=== PATIENT | female | born 1955 | race Caucasian/White ===

== ENCOUNTER 2023-12-25 10:45 | Outpatient (RCR) | payer MEDICARE, SELFPAY | END 2023-12-25 23:59 | disposition home or self-care (01) | LOC: PURB 10:45 | PROVIDERS: ATTENDING PHYSICIAN Internal Medicine Critical Care Medicine; FAMILY PHYSICIAN Student in an Organized Health Care Education/Training Program | DX: J44.9 Chronic obstructive pulmonary disease, unspecified (principal) | CPT/HCPCS: 94625; G0237 ==

== ENCOUNTER 2024-01-14 12:04 | Emergency (ER) | payer MEDICARE, SELFPAY ==
[2024-01-14 12:17] VITALS: BP 124/90
[2024-01-14 12:29] VITALS: BP 104/78
[2024-01-14 13:00] VITALS: BP 107/64
[2024-01-14 13:19] VITALS: BMI 23.0
[2024-01-14] MEDS: DUONEB 6 ML INH (13:36)
[2024-01-14] MEDS: DELTASONE 60 MG PO (13:36)
[2024-01-14 14:00] VITALS: BP 93/78
[2024-01-14 14:02] LABS: COVID-19 Antigen Negative (Negative)
--- NOTE | 2024-01-14 14:40 | ED.GENMED ---
History of Present Illness
General
Chief Complaint: Breathing Problem
Time Seen by Provider: 01/14/24 12:44
Travel History
Have you had any contact with someone who has COVID-19?: No
Do you have any symptoms of coronavirus? Fever > 100 degrees, chills, cough, shortness of breath, sore throat, loss of taste or smell, muscle aches, or headache?: No
History of Present Illness
History of Present Illness:
68-year-old female with history of COPD presents to the emergency department for evaluation of increased shortness of breath for the past 3 to 4 days with low pulse ox at home. She does have oxygen concentrator at home, typically only wears this on
demand or at nighttime. Has had oxygen saturations in the low 80s at home. Denies any chest pain or fevers. No cough or purulent sputum. On my initial evaluation the patient informs me that she does not wish to be admitted, states 'I just want
prednisone and discharge'.
Past History
Past History
ED Past Medical History: COPD, Fibromyalgia and Other (Fibromyalgia, chronic neck and back pain, Osteoarthritis)
ED Past Surgical History:
Social History
Tobacco: Smoker
Alcohol: Occasional
Drug: None
Personal:
Living: with family
Family History
Family History: Other
Review of Systems
Review of Systems
Allergies reviewed?: Yes
All Other Systems: ROS reviewed and negative except as documented in HPI and ROS
Phy Exam
Physical Exam
Physical Exam:
GEN: Well appearing, NAD, WDWN
Eyes: PERRLA, EOMs intact, no scleral icterus
HENT: NCAT, oral mucosa moist, no JVD, no cervical adenopathy.
Lungs: Grossly diminished lung sounds, coarse wheezes heard in bases but overly diminished
Cardiac: RRR, no M/R/G, no peripheral edema. Radial pulses 2+ bilat
Neuro: AO x 3
MSK: No gross deformity or ecchymosis. No edema. No digital clubbing
Skin: No rashes, petechiae. Normal color, no pallor or jaundice.
Psych: Calm, cooperative, proper hygiene
Scores
Heart Failure Risk
Heart Failure Risk Score: Not Applicable
Course
Orders/Labs/Results
Orders:
Orders
01/14/24 12:48
Ipratropium/Albuterol Sulfate [Duoneb] 6 ml INH R NOW STA
Prednisone [Deltasone] 60 mg PO NOW STA
01/14/24 12:49
CR Chest - 2 Views Urgent
Comment:
Reason For Exam: SOB
01/14/24 13:35
COVID-19 Antigen Urgent
Source: Nasal Swab
Influenza A+B Rapid Molecular Urgent
SHENG Source: Nasal Swab
Specimen Description:
Vital Signs
Initial and Last Documented VS:
Initial Vital Signs
Temp Pulse Resp BP Pulse Ox
98.2 F 106 18 124/90 84
01/14/24 12:17 01/14/24 12:17 01/14/24 12:17 01/14/24 12:17 01/14/24 12:17
Last Documented Vital Signs
Temp Pulse Resp BP Pulse Ox
98.2 F 85 21 93/78 97
01/14/24 12:17 01/14/24 14:00 01/14/24 14:00 01/14/24 14:00 01/14/24 14:00
MDM/Problems Addressed
MDM/Problems Addressed:
Patient symptomatically improved with DuoNeb in the emergency department. Chest x-ray is negative for acute abnormalities. Patient be discharged on a prednisone pulse dosing, encouraged ED return if any worsening due to her brittle underlying COPD
*Critical Care Note
Total Time (30-74mins, 75-104mins- exclusive of procedures): Not Applicable
ED Attending Note
-
Portions of this chart may have been created with voice recognition software.� Occasional wrong word or��sound alike� substitutions may have occurred due to the inherent limitations of voice recognition software.
Discharge Plan
Departure
Patient Disposition: Home (Routine Discharge)
Date of Disposition: 01/14/24
Time of Disposition: 14:40
Patient with high blood pressure during this ER visit?: No
Discharge Problem:
Acute exacerbation of chronic obstructive pulmonary disease
Instructions: Exacerbation of COPD (DC)
Prescriptions:
New
prednisone 20 mg tablet
40 mg PO DAILY 6 Days Qty: 12 0RF
No Action
atorvastatin 10 mg Tablet
10 mg PO DAILY
zolpidem 10 mg Tablet
10 mg PO HSPRN PRN (Reason: sleep)
Rx Instructions:
08/20/2023, patient filled this medication on 08/09/2023 for 30 tablets according to PDMP.
therapeutic multivitamin Tablet
1 tab PO DAILY
albuterol sulfate 90 mcg/actuation Hfa Aerosol Inhaler
1 puff INHALATION R Q4HPRN PRN (Reason: sob)
bupropion HCl 150 mg Tablet Extended Release 24 Hr
150 mg PO DAILY
Anoro Ellipta 62.5-25 mcg/actuation Blister With Device
1 inh INHALATION R DAILY
oxycodone-acetaminophen 5 MG/325 MG tablet
1 tab PO Q8HPRN PRN (Reason: mild pain)
Rx Instructions:
08/20/2023, patient filled this medication on 06/19/2023 for 90 tablets according to PDMP.
nicotine 14 mg/24 hr Patch 24 Hour
14 mg transdermal DAILY Qty: 14 0RF
prednisone 10 mg Tablet
See Rx Instructions .ROUTE .COMPLEX Qty: 30 0RF
Rx Instructions:
Take By Mouth:
40 mg daily x3 days, 30 mg daily x3 days,
20 mg daily x3 days, 10 mg daily x3 days.
azithromycin 250 mg tablet
250 mg PO DAILY 4 Days Qty: 4 0RF
prednisone 10 mg tablet
10 mg PO DIRECTED Qty: 16 0RF
Rx Instructions:
4 tablets for day 1
3 tablets for day 2 and day 3
2 tablets for day 4 and day 5
1 tablet for day 6 and day 7
Referrals:
Emilia Alcala MD [Family Provider] -
Interventions
Interventions:
*Risk Screen - Suicide Last Done: 01/14/24 12:17
*General Assessment Last Done: 01/14/24 12:17
*Neglect/Abuse Screening Last Done: 01/14/24 12:17
ED- Fall Risk Assessment Last Done: 01/14/24 13:19
*ED COVID-19 Vaccine History Last Done: 01/14/24 13:19
*Nursing Disposition Last Done: 01/14/24 15:05
ED- Cardiac Assessment Last Done: 01/14/24 13:19
ED- Pulmonary Assessment Last Done: 01/14/24 13:19
Discharge Date and Time
Discharge Date/Time: 01/14/24 15:05
--- NOTE | 2024-01-14 15:01 | EDRN ---
Reviewed discharge with patient. Verbalized understanding. Refused wheelchair when offered.
== END 2024-01-14 15:05 | disposition home or self-care (01) ==
LOC: EMR 12:04
PROVIDERS: Physician Assistant; EMERGENCY PHYSICIAN Emergency Medicine; FAMILY PHYSICIAN Student in an Organized Health Care Education/Training Program
DX: J44.1 Chronic obstructive pulmonary disease with (acute) exacerbation (principal); F17.200 Nicotine dependence, unspecified, uncomplicated; Z11.52 Encounter for screening for COVID-19
CPT/HCPCS: 99284; 94640; 71046; 87502; 87811

== ENCOUNTER 2024-01-22 10:45 | Outpatient (RCR) | payer MEDICARE, SELFPAY | END 2024-01-22 23:59 | disposition home or self-care (01) | LOC: PURB 10:45 | PROVIDERS: ATTENDING PHYSICIAN Internal Medicine Critical Care Medicine; FAMILY PHYSICIAN Student in an Organized Health Care Education/Training Program | DX: J44.9 Chronic obstructive pulmonary disease, unspecified (principal) | CPT/HCPCS: 94625 ==

== ENCOUNTER → 2024-02-01 15:18 | Outpatient (REF) | payer MEDICARE, SELFPAY | LOC: HWRAD 15:18 | PROVIDERS: ATTENDING PHYSICIAN Otolaryngology; FAMILY PHYSICIAN Student in an Organized Health Care Education/Training Program | DX: J32.0 Chronic maxillary sinusitis (principal) | CPT/HCPCS: 70486 ==

== ENCOUNTER 2024-02-05 10:45 | Outpatient (RCR) | payer MEDICARE, SELFPAY | END 2024-02-13 09:09 | disposition home or self-care (01) | LOC: PURB 10:45 | PROVIDERS: ATTENDING PHYSICIAN Internal Medicine Critical Care Medicine; FAMILY PHYSICIAN Student in an Organized Health Care Education/Training Program | DX: J44.9 Chronic obstructive pulmonary disease, unspecified (principal) | CPT/HCPCS: 94625 ==

== ENCOUNTER 2024-04-24 09:24 | Emergency (ER) | payer MEDICARE, SELFPAY ==
[2024-04-24 09:25] VITALS: BP 112/73
--- NOTE | 2024-04-24 10:14 | ED.GENMED ---
History of Present Illness
General
Chief Complaint: Back Pain
Source: patient
Exam Limitations: none
Time Seen by Provider: 04/24/24 09:35
Nursing documentation reviewed up to this point in time: agreed with
History of Present Illness
History of Present Illness:
Patient is a 68-year-old female with past medical history of cervical stenosis COPD presents to the ER for evaluation. Patient has had low back pain and she feels bilateral sciatica. She reports back pain is more of a newer pain for her she
typically gets neck pain. She is a chronic pain patient and is on chronic narcotics. Today she denies any recent injury . Denies any recent fever or chills. Denies any back procedures recently. She denies any loss of bowel or bladder. She
denies any numbness tingling weakness in extremities. Patient is coming in today to get an MRI.
Past History
Past History
ED Past Medical History: COPD, Fibromyalgia and Other (Fibromyalgia, chronic neck and back pain, Osteoarthritis)
ED Past Surgical History:
Social History
Tobacco: Smoker
Alcohol: Occasional
Drug: None
Personal:
Living: with family
Family History
Family History: Other
Review of Systems
Review of Systems
Allergies reviewed?: Yes
All Other Systems: ROS reviewed and negative except as documented in HPI and ROS
Constitutional: Reports no symptoms; Denies fever, fatigue or chills
Musculoskeletal: Reports back pain
Skin: Reports no symptoms
Neurological: Reports no symptoms
Psychiatric: Reports no symptoms
Phy Exam
General Physical Exam
General Presentation: no apparent distress
General age: appears stated age
General Skin: warm and dry
General Habitus: normal
General Mental: alert
General Hydration: appears well hydrated
Neurological Exam
Neurological Exam: alert, oriented x3 and other (Normal strength bilateral lower extremities normal dorsiflexion plantarflexion)
Musculoskeletal Exam
Musculoskeletal Exam: full ROM and other (Normal inspection to back, full range of motion to bilateral lower extremities)
Skin Exam
Skin Exam: normal color and warm/dry
Psychiatric Exam
Psychiatric Exam: normal mood/affect
Course
Vital Signs
Initial and Last Documented VS:
Initial Vital Signs
Temp Pulse Resp BP Pulse Ox
98.5 F 108 16 112/73 93
04/24/24 09:25 04/24/24 09:25 04/24/24 09:25 04/24/24 09:25 04/24/24 09:25
Last Documented Vital Signs
Temp Pulse Resp BP Pulse Ox
98.5 F 108 16 112/73 93
04/24/24 09:25 04/24/24 09:25 04/24/24 09:25 04/24/24 09:25 04/24/24 09:25
MDM/Problems Addressed
Differential Diagnosis Includes:
not limited to: Lumbar sprain strain, sciatica
MDM/Problems Addressed:
Patient is a 68-year-old female with chronic neck pain followed by pain management presents to the ER with back pain that radiates to both legs. She denies any recent injury. She denies any fever chills or recent back procedures. She presents
awake alert no acute distress normal strength neurologic deficits negative straight leg raise normal dorsiflexion plantar flexion, reflexes.
Will DC home with Medrol Dosepak. Patient follow-up with a family doctor pain management.
She has no neurological deficits no indication for MRI at this time discussed with patient that she may need this as an outpatient
Chronic conditions affecting care:
Chronic pain is a pt of pain management
*Critical Care Note
Total Time (30-74mins, 75-104mins- exclusive of procedures): Not Applicable
ED Attending Note
-
Portions of this chart may have been created with voice recognition software.� Occasional wrong word or��sound alike� substitutions may have occurred due to the inherent limitations of voice recognition software.
Discharge Plan
Departure
Patient Disposition: Home (Routine Discharge)
Date of Disposition: 04/24/24
Time of Disposition: 10:37
Patient with high blood pressure during this ER visit?: No
Condition: Fair
Covid-19: Not Applicable
Discharge Problem:
Sciatica, Low back pain
Instructions: Low Back Pain (DC), Sciatica (DC)
Prescriptions:
New
methylprednisolone [Medrol (Clint)] 4 mg tablets,dose pack
4 mg PO ONCE Qty: 21 0RF
Rx Instructions:
take as directed
No Action
atorvastatin 10 mg Tablet
10 mg PO DAILY
zolpidem 10 mg Tablet
10 mg PO HSPRN PRN (Reason: sleep)
Rx Instructions:
08/20/2023, patient filled this medication on 08/09/2023 for 30 tablets according to PDMP.
therapeutic multivitamin Tablet
1 tab PO DAILY
albuterol sulfate 90 mcg/actuation Hfa Aerosol Inhaler
1 puff INHALATION R Q4HPRN PRN (Reason: sob)
bupropion HCl 150 mg Tablet Extended Release 24 Hr
150 mg PO DAILY
Anoro Ellipta 62.5-25 mcg/actuation Blister With Device
1 inh INHALATION R DAILY
oxycodone-acetaminophen 5 MG/325 MG tablet
1 tab PO Q8HPRN PRN (Reason: mild pain)
Rx Instructions:
08/20/2023, patient filled this medication on 06/19/2023 for 90 tablets according to PDMP.
nicotine 14 mg/24 hr Patch 24 Hour
14 mg transdermal DAILY Qty: 14 0RF
prednisone 10 mg Tablet
See Rx Instructions .ROUTE .COMPLEX Qty: 30 0RF
Rx Instructions:
Take By Mouth:
40 mg daily x3 days, 30 mg daily x3 days,
20 mg daily x3 days, 10 mg daily x3 days.
azithromycin 250 mg tablet
250 mg PO DAILY 4 Days Qty: 4 0RF
prednisone 10 mg tablet
10 mg PO DIRECTED Qty: 16 0RF
Rx Instructions:
4 tablets for day 1
3 tablets for day 2 and day 3
2 tablets for day 4 and day 5
1 tablet for day 6 and day 7
prednisone 20 mg tablet
40 mg PO DAILY 6 Days Qty: 12 0RF
Referrals:
Emilia Alcala MD [Family Provider] -
Activity Restrictions/Additional Instructions:
As discussed a prescription for Medrol Dosepak(low-dose steroid pack) was sent to your pharmacy to take as directed. Symptoms are consistent with sciatica, pinched nerve. Follow-up with design painter or your family doctor for further
evaluation. It is possible you may need an MRI or physical therapy. Return if any worsening of symptoms including loss of bowel or bladder worsening pain numbness tingling weakness lower extremities.
Interventions
Interventions:
*Risk Screen - Suicide Last Done: 04/24/24 09:25
*General Assessment Last Done: 04/24/24 09:25
*Neglect/Abuse Screening Last Done: 04/24/24 09:25
*ED COVID-19 Vaccine History Last Done: 04/24/24 09:25
Discharge Date and Time
Print Language: CROATIAN
[2024-04-24 11:36] VITALS: BP 111/62
== END 2024-04-24 11:47 | disposition home or self-care (01) ==
LOC: EMR 09:24
PROVIDERS: EMERGENCY PHYSICIAN Emergency Medicine; FAMILY PHYSICIAN Student in an Organized Health Care Education/Training Program; REFERRING PHYSICIAN Physical Medicine & Rehabilitation
DX: M54.40 Lumbago with sciatica, unspecified side (principal); J44.9 Chronic obstructive pulmonary disease, unspecified; M79.7 Fibromyalgia; G89.29 Other chronic pain; M19.90 Unspecified osteoarthritis, unspecified site; F17.200 Nicotine dependence, unspecified, uncomplicated; Z79.891 Long term (current) use of opiate analgesic; Z79.899 Other long term (current) drug therapy
CPT/HCPCS: 99282

== ENCOUNTER → 2024-06-11 16:02 | Outpatient (REF) | payer MEDICARE, SELFPAY ==
[2024-06-11 16:54] LABS: % Basophils 0.8 % (0-2); % Eosinophils 0.8 % (0-6); % Immature Granulocytes 0.3 % (0-0.5); % Lymphocytes 19.6 % (20.5-51.1); % Monocytes 7.8 % (1.7-9.3); % Neutrophils 70.7 % (42.2-75.2); Absolute Basophils 0.1 10^3/uL (0-0.2); Absolute Eosinophils 0.1 10^3/uL (0-0.7); Absolute Lymphocytes 1.8 10^3/uL (1.2-3.4); Absolute Monocytes 0.7 10^3/uL (0.1-0.6); Absolute Neutrophils 6.6 10^3/uL (1.4-6.5); Hematocrit 43.4 % (37.0-47.0); Hemoglobin 14.7 g/dL (12.0-16.0); Mean Corp Hgb Conc. 33.9 g/dL (33.0-37.0); Mean Corpuscular Hgb 31.2 pg (27.0-31.0); Mean Corpuscular Volume 92.1 fL (81.0-99.0); Mean Platelet Volume 9.7 fL (7.4-10.4); Nucleated Red Blood Cells % 0 %; Platelet Count 265 10^3/uL (130-400); Red Blood Cell Count 4.71 10^6/uL (4.20-5.40); Red Cell Dist. Width 11.9 % (11.5-14.5); White Blood Cell Count 9.3 10^3/uL (4.8-10.8)
[2024-06-11 17:21] LABS: ALT (SGPT) 16 U/L (0-35); AST (SGOT) 24 U/L (14-36); Albumin 4.1 g/dl (3.5-5.0); Alkaline Phosphatase 53 U/L (38-126); Blood Urea Nitrogen 16 mg/dl (7-17); Calcium 9.7 mg/dl (8.4-10.2); Carbon Dioxide 35 mmol/L (22-30); Chloride 96 mmol/L (98-107); Glucose 106 mg/dl (70-99); HDL Cholesterol 67 mg/dl; LDL Cholesterol, Calculated 95 mg/dl; Magnesium 2.1 mg/dl (1.6-2.3); Potassium 4.5 mmol/L (3.5-5.1); Sodium 136 mmol/L (135-145); Total Bilirubin 0.4 mg/dl (0.2-1.3); Total Cholesterol 178 mg/dl (50-199); Total Protein 6.3 g/dl (6.3-8.2); Triglyceride 83 mg/dl (10-149); Very Low Density Lipoprotein 16 mg/dl (0-30); eGFR > 60.00
[2024-06-11 17:51] LABS: TSH Reflex To Free T4 0.31 uIU/ml (0.47-4.68)
[2024-06-11 18:20] LABS: Free T4 1.26 ng/dl (0.78-2.19)
== END ==
LOC: REG 16:02
PROVIDERS: ATTENDING PHYSICIAN Student in an Organized Health Care Education/Training Program
DX: R63.4 Abnormal weight loss (principal); R19.7 Diarrhea, unspecified; R25.2 Cramp and spasm; Z00.00 Encounter for general adult medical examination without abnormal findings; E78.5 Hyperlipidemia, unspecified
CPT/HCPCS: 36415; 80053; 80061; 83735; 84439; 84443; 85025

== ENCOUNTER → 2024-07-22 14:26 | Outpatient (REF) | payer MEDICARE, SELFPAY ==
[2024-07-22 14:53] LABS: B.E. 6.2 mmol/L; HCO3 32.7 mmol/L (21-28); O2 Saturation % 89.9 % (94-98); PCO2 54 mmHg (32-35); PO2 54 mmHg (83-108); pH 7.39 (7.35-7.45)
[2024-07-22 14:55] LABS: O2 Therapy ROOM AIR
== END ==
LOC: RSP 14:26
PROVIDERS: ATTENDING PHYSICIAN Nurse Practitioner Family; FAMILY PHYSICIAN Student in an Organized Health Care Education/Training Program
DX: R09.02 Hypoxemia (principal); J44.9 Chronic obstructive pulmonary disease, unspecified
CPT/HCPCS: 36600; 82805

== ENCOUNTER → 2024-08-15 15:32 | Outpatient (REF) | payer MEDICARE, SELFPAY ==
[2024-08-15 17:50] LABS: Free T4 1.06 ng/dl (0.78-2.19)
[2024-08-16 09:05] LABS: Glycohemoglobin (HgbA1c) 5.8 % (4.0-5.6)
[2024-08-18 00:10] LABS: Thyroglobulin Antibodies <0.9 IU/mL (0.0-4.0); Thyroid Peroxidase Ab (TPO) <0.3 IU/mL (0.0-9.0)
== END ==
LOC: REG 15:32
PROVIDERS: ATTENDING PHYSICIAN Student in an Organized Health Care Education/Training Program
DX: R94.6 Abnormal results of thyroid function studies (principal); R73.01 Impaired fasting glucose
CPT/HCPCS: 36415; 83036; 84439; 84443; 86376; 86800

== ENCOUNTER 2024-09-01 04:33 | Inpatient (IN) | payer MEDICARE, SELFPAY ==
[2024-09-01] VITALS (15 sets, daily range): BP systolic 89–159; BP diastolic 50–85; PULSE 94–107; BMI 20.9
[2024-09-01] MEDS: DECADRON 10 MG IV (00:45)
[2024-09-01] MEDS: DUONEB 3 ML INH ×4 (00:45→15:20)
--- NOTE | 2024-09-01 00:57 | ED.GENMED ---
History of Present Illness
General
Chief Complaint: Breathing Problem
Source: patient and ambulance crew
Exam Limitations: none
Time Seen by Provider: 09/01/24 00:39
Nursing documentation reviewed up to this point in time: agreed with
History of Present Illness
History of Present Illness:
68-year-old female presents emergency department due to shortness of breath for the past 2 days. Upon EMS arrival oxygen saturation 50% on room air. She received 1 DuoNeb. She has a history of COPD.
Past History
Past History
ED Past Medical History: COPD, Fibromyalgia and Other (Fibromyalgia, chronic neck and back pain, Osteoarthritis)
ED Past Surgical History:
Social History
Tobacco: Smoker
Alcohol: Occasional
Drug: None
Personal:
Living: with family
Family History
Family History: Other
Review of Systems
Review of Systems
Allergies reviewed?: Yes
All Other Systems: Not applicable
Constitutional: Reports no symptoms; Denies fever
EENT: Reports no symptoms
Respiratory: Reports cough and trouble breathing
Cardiac: Reports no symptoms
ABD/GI: Reports no symptoms
: Reports no symptoms
Musculoskeletal: Reports no symptoms
Skin: Reports no symptoms
Neurological: Reports no symptoms
Endocrine: Reports no symptoms
Hematologic/Lymphatic: Reports no symptoms
Psychiatric: Reports no symptoms
Phy Exam
Physical Exam
Physical Exam:
Physical Exam
General: Moderate respiratory distress
Neck: supple. no meningeal signs. normal posterior pharynx
Heart: s1/s2 regular rate and rhythm, no murmur. equal radial
pulses.
HEENT: Pupils equal round reactive to light, EOMI
Lungs: Moderate respiratory distress. Wheezing bilaterally
Abdomen: normal bowel sounds. not tender. no CVAT
Neuro: alert and oriented. no focal neurological deficits cranial nerves II through XII intact
Skin: no rash
Psychiatric: well kept. interactive and cooperative
Extremities: no edema. no calf tenderness. negative homans. good distal pulses
Scores
Heart Failure Risk
Heart Failure Risk Score: Not Applicable
Course
Orders/Labs/Results
Orders:
Orders
09/01/24 00:39
Cardiac Monitoring- Treatment ONCE
IV Insert/Care/Rem.- Treatment PRN
Dexamethasone Sod Phosphate [Decadron] 10 mg IV NOW STA
Ipratropium/Albuterol Sulfate [Duoneb] 3 ml INH R NOW STA
O2 Therapy [RESP] Stat
Nasal Cannula Liter Flow: 6 LPM
Titrate/Wean O2 to maintain O2 sat greater than (%): 92
Pulse Ox/cont/shift [RESP] Stat
Quantity: 1
09/01/24 00:41
CR Chest Portable - 1 View Urgent
Comment:
Reason For Exam: short of breath
Reason Study Needs to be Portable: Patient Unstable
09/01/24 00:42
Electrocardiogram (*1) Urgent
Reason for Study: Shortness of Breath
EKG- Treatment ONCE
Ipratropium/Albuterol Sulfate [Duoneb] 3 ml .ROUTE .STK-MED ONE
09/01/24 00:46
Complete Blood Count/With Diff Urgent
Comprehensive Metabolic Panel Urgent
09/01/24 01:18
Ondansetron Injectable [Zofran] 4 mg IV NOW STA
Abnormal Lab Results
09/01/24
00:46
WBC 15.7 H 10^3/uL
(4.8-10.8)
MCH 31.2 H pg
(27.0-31.0)
Abs Immat Gran (auto) 0.1 H 10^3/uL
(0-0.05)
Absolute Neuts (auto) 12.5 H 10^3/uL
(1.4-6.5)
Absolute Monos (auto) 1.4 H 10^3/uL
(0.1-0.6)
Neutrophils % 79.7 H %
(42.2-75.2)
Lymphocytes % 10.7 L %
(20.5-51.1)
Chloride 97 L mmol/L
(98-107)
Carbon Dioxide 35 H mmol/L
(22-30)
Creatinine 0.5 L mg/dL
(0.6-1.0)
Glucose 185 H mg/dl
(70-99)
AST 47 H U/L
(14-36)
09/01/24 00:46
09/01/24 00:46
Vital Signs
Initial and Last Documented VS:
Initial Vital Signs
Pulse Ox
94
09/01/24 00:36
Last Documented Vital Signs
Pulse Resp BP Pulse Ox
107 20 143/67 93
09/01/24 01:00 09/01/24 01:00 09/01/24 01:00 09/01/24 01:00
MDM/Problems Addressed
Differential Diagnosis Includes:
Pneumonia, COPD, CHF
MDM/Problems Addressed:
68-year-old female with COPD exacerbation, hypoxia. No pneumonia seen. Do not suspect CHF. Admit to hospitalist.
Chronic conditions affecting care: COPD
Acute Exacerbation and/or Progression of Chronic Illness: COPD
*Radiology
Radiology exam reviewed: preliminary read by ED provider (Chest x-ray no acute findings)
*Pulse Oximetry
Patient hypoxic: yes
*EKG
Interpreted by ED Provider?: Yes
EKG Intrepretation Date: 09/01/24
EKG Intrepretation Time: 00:53
Interpretation: abnormal
Comparison EKG: no comparison EKG present
Heart Rate: 103
Rate: tachycardiac
Rhythm: sinus tachycardia
[place]: normal axis
Interval: normal interval
QRS Pattern: normal QRS
Ischemia: no ischemia
*Photoengraving Apprentice Interpretation
Rate: normal
Interpretation: normal
Heart Rate: 95
Rhythm: sinus
*Critical Care Note
Total Time (30-74mins, 75-104mins- exclusive of procedures): 30
comment:
Critical care statement: A total of 30 minutes of critical care time was provided for this patient. This includes management of unstable vital signs, evaluation of the patient at bedside, reviewing the patient's pertinent medical records, discussion
with consultants, review of old EKGs and review of pertinent medical records. This time with separate from time utilized to perform the aforementioned documented procedures
Data Reviewed
Review of Other/Old Records Reveals: Discharge Summary (Patient discharged on 08/22/2023 after COPD exacerbation)
Source: records
Prescriptions/Medications Considered But Not Given:
Antibiotics not indicated
Further Testing Considered But Not Given:
CT chest not indicated
Patient Management
Discussion with other providers: Hospitalist
Escalation/DeEscalation of care consider admission/obs:
Admit indicated
ED Attending Note
-
Portions of this chart may have been created with voice recognition software.� Occasional wrong word or��sound alike� substitutions may have occurred due to the inherent limitations of voice recognition software.
Discharge Plan
Departure
Patient Disposition: Admit
Date of Disposition: 09/01/24
Time of Disposition: 02:11
Admit to: Telemetry
Presentation/result/management discussed w/ accepting MD/DO: Hospitalist
Patient with high blood pressure during this ER visit?: Yes
Condition: Fair
Discharge Problem:
Acute exacerbation of chronic obstructive pulmonary disease (COPD), Hypoxia
Prescriptions:
No Action
atorvastatin 10 mg Tablet
10 mg PO DAILY
zolpidem 10 mg Tablet
10 mg PO HSPRN PRN (Reason: sleep)
Rx Instructions:
08/20/2023, patient filled this medication on 08/09/2023 for 30 tablets according to PDMP.
therapeutic multivitamin Tablet
1 tab PO DAILY
albuterol sulfate 90 mcg/actuation Hfa Aerosol Inhaler
1 puff INHALATION R Q4HPRN PRN (Reason: sob)
bupropion HCl 150 mg Tablet Extended Release 24 Hr
150 mg PO DAILY
Anoro Ellipta 62.5-25 mcg/actuation Blister With Device
1 inh INHALATION R DAILY
oxycodone-acetaminophen 5 MG/325 MG tablet
1 tab PO Q8HPRN PRN (Reason: mild pain)
Rx Instructions:
08/20/2023, patient filled this medication on 06/19/2023 for 90 tablets according to PDMP.
nicotine 14 mg/24 hr Patch 24 Hour
14 mg transdermal DAILY Qty: 14 0RF
prednisone 10 mg Tablet
See Rx Instructions .ROUTE .COMPLEX Qty: 30 0RF
Rx Instructions:
Take By Mouth:
40 mg daily x3 days, 30 mg daily x3 days,
20 mg daily x3 days, 10 mg daily x3 days.
azithromycin 250 mg tablet
250 mg PO DAILY 4 Days Qty: 4 0RF
prednisone 10 mg tablet
10 mg PO DIRECTED Qty: 16 0RF
Rx Instructions:
4 tablets for day 1
3 tablets for day 2 and day 3
2 tablets for day 4 and day 5
1 tablet for day 6 and day 7
prednisone 20 mg tablet
40 mg PO DAILY 6 Days Qty: 12 0RF
methylprednisolone [Medrol (Clint)] 4 mg tablets,dose pack
4 mg PO ONCE Qty: 21 0RF
Rx Instructions:
take as directed
Referrals:
Emilia Alcala MD [Family Provider] -
Interventions
Interventions:
*Risk Screen - Suicide Last Done: 09/01/24 00:59
*General Assessment Last Done: 09/01/24 00:40
*Neglect/Abuse Screening Last Done: 09/01/24 00:59
*ED COVID-19 Vaccine History Last Done: 09/01/24 00:59
ED- Cardiac Assessment Last Done: 09/01/24 00:40
ED- Pulmonary Assessment Last Done: 09/01/24 00:40
Discharge Date and Time
Print Language: COMORAN
[2024-09-01 01:16] LABS: ALT (SGPT) 34 U/L (0-35); AST (SGOT) 47 U/L (14-36); Albumin 4.4 g/dl (3.5-5.0); Alkaline Phosphatase 59 U/L (38-126); Blood Urea Nitrogen 13 mg/dl (7-17); Calcium 9.6 mg/dl (8.4-10.2); Carbon Dioxide 35 mmol/L (22-30); Chloride 97 mmol/L (98-107); Estimated Creatinine Clearance 76 ml/min; Glucose 185 mg/dl (70-99); Potassium 4.4 mmol/L (3.5-5.1); Sodium 142 mmol/L (135-145); Total Bilirubin 0.4 mg/dl (0.2-1.3); Total Protein 6.7 g/dl (6.3-8.2); eGFR > 60.00
[2024-09-01] MEDS: ZOFRAN 4 MG IV (01:21)
[2024-09-01 01:34] LABS: % Basophils 0.4 % (0-2); % Eosinophils 0.2 % (0-6); % Immature Granulocytes 0.3 % (0-0.5); % Lymphocytes 10.7 % (20.5-51.1); % Monocytes 8.7 % (1.7-9.3); % Neutrophils 79.7 % (42.2-75.2); Absolute Basophils 0.1 10^3/uL (0-0.2); Absolute Immature Granulocytes 0.1 10^3/uL (0-0.05); Absolute Lymphocytes 1.7 10^3/uL (1.2-3.4); Absolute Monocytes 1.4 10^3/uL (0.1-0.6); Absolute Neutrophils 12.5 10^3/uL (1.4-6.5); Hemoglobin 15.1 g/dL (12.0-16.0); Mean Corp Hgb Conc. 33.6 g/dL (33.0-37.0); Mean Corpuscular Hgb 31.2 pg (27.0-31.0); Mean Platelet Volume 9.2 fL (7.4-10.4); Nucleated Red Blood Cells % 0 %; Platelet Count 302 10^3/uL (130-400); Red Blood Cell Count 4.84 10^6/uL (4.20-5.40); Red Cell Dist. Width 11.7 % (11.5-14.5); White Blood Cell Count 15.7 10^3/uL (4.8-10.8)
--- NOTE | 2024-09-01 04:19 | HPS.HSE ---
Family Physician
-
Family Physician: Emilia Alcala MD
Chief Complaint
-
SOB
History of Present Illness
Patient is a 68y F with PMH significant for COPD and fibromyalgia who presents to ED complaining of SOB. Patient states that she has had runny nose and mild cold symptoms for the past few days. Yesterday she started to feel SOB and this has
persisted over the past 24 hours plus despite home nebulizers and usual medications. With increased SOB this evening, patient presented to the ED for further evaluation.
SpO2 was recorded as very low by EMS (likely in error). SpO2 here on oxygen was 84% and is currently 98% on 6 lpm of O2.
Patient currently feels improved in regards to her SOB and complains only of headache.
Medical History
Past Medical History
Past Medical History: Reports Other
Additional Past Medical History:
COPD
Fibromyalgia
PMR
Migraine Headaches
Anxiety / Depression
Past Surgical History: Reports Other
Additional Past Surgical History:
Nose Surgery
Breast Biopsy (benign)
D&C
Cataracts
Zencker's Diverticulectomy
Social History
Tobacco: Smoker (Current every day smoker. > 50 pack years total use.)
Alcohol: Occasional
Drug: None
Family History
Family History: Not pertinent
Allergies / Home Medications
Allergies reflects when Allergies were last updated in [employer].
Home Medications with original date entered in [employer]
Allergy/Medication List:
Allergies
Allergy/AdvReac Type Severity Reaction Status Date / Time
amoxicillin Allergy Anaphylaxis Verified 04/24/24 09:27
Home Medications
atorvastatin 10 mg tablet 10 mg PO DAILY High Cholesterol 05/04/23
zolpidem 10 mg tablet 10 mg PO HSPRN PRN sleep 05/04/23
albuterol sulfate 90 mcg/actuation aerosol inhaler 1 puff inhalation R Q4HPRN PRN sob 08/20/23
bupropion HCl 150 mg 24 hr tablet, extended release 150 mg PO DAILY Depression 08/20/23
therapeutic multivitamin 1 tab PO DAILY Supplement 08/20/23
umeclidinium 62.5 mcg-vilanterol 25 mcg/actuation powdr for inhalation (Anoro Ellipta) 1 inh inhalation R DAILY Lung/Breathing Issues 08/20/23
azithromycin 250 mg tablet 250 mg PO DAILY 4 days #4 tabs 08/22/23
prednisone 20 mg tablet 40 mg (2 x 20 mg) PO DAILY 6 days #12 tabs 01/14/24
Review of Systems
-
History Source: Patient
A 12 point ROS was completed and negative except as noted: Yes
Constitutional: Reports Fatigue; Denies Fever or Chills
EENT: Reports Runny Nose; Denies Sore Throat
Respiratory: Reports Cough and Trouble Breathing
Cardiac: Reports Palpitations; Denies Chest Pain
Abdomen/GI: Denies Abdominal Pain, Nausea, Vomiting or Diarrhea
: Denies Dysuria, Frequency or Flank Pain
Neurological: Reports Headache; Denies Dizzy
Psych: Denies Depression or Anxiety
Physical Exam
Vital Signs
Vital Signs
Temp Pulse Resp BP Pulse Ox
98.7 F 87 15 105/63 99
09/01/24 01:00 09/01/24 04:00 09/01/24 04:00 09/01/24 04:00 09/01/24 04:00
Physical Exam
General: Other (68y F in mild distress due to headache.)
HEENT: Moist mucous membranes and PERRLA
Respiratory: Other (Decreased breath sounds throughout. Few scattered coarse breath sounds/ rhonchi. No active wheezing.)
Cardiac: S1/S2 and Regular Rhythm; No Murmur
GI: Soft, Non Tender, Non Distended and Normal Bowel Sounds
Musculoskeletal: No Clubbing, No Cyanosis and No Edema
Neuro: AO x 3
Laboratory Results
-
09/01/24 00:46
09/01/24 00:46
Laboratory Results
Total Bilirubin 0.4 mg/dl (0.2-1.3) 09/01/24 00:46
AST 47 U/L (14-36) H 09/01/24 00:46
ALT 34 U/L (0-35) 09/01/24 00:46
Alkaline Phosphatase 59 U/L (38-126) 09/01/24 00:46
Impression/Plan
-
A/P: Patient is a 68y F with PMH significant for COPD and anxiety / depression who presents to ED complaining of worsening SOB and cold symptoms over the past 2 days.
AE-COPD
Acute Hypoxemic Respiratory Insufficiency secondary to the above
- Admit for further evaluation and treatment.
- SpO2 in the 80s on supplemental oxygen.
- Patient has home O2 that she uses 'as needed' and BiPAP that she wears at night - she does not know the settings.
- IV steroids and taper as able / transition to PO prednisone (which patient takes 40mg / day at baseline).
- Nebs ATC and PRN.
- Mucolytics.
- PO doxycycline given coarse breath sounds / cough. Hold usual azithromycin for now - resume on discharge.
- Consider Pulmonary evaluation if symptoms worsen or persist.
Fibromyalgia
PMR
- Stable. No complaints of pain at present - other than headache.
- Continue current med regimen.
- Resume usual steroid dose at discharge as noted above.
Anxiety / Depression
- Stable. Continue usual outpatient medications.
DVT Prophylaxis: Lovenox
Code Status: Full
[2024-09-01 05:06] LABS: COVID-19 Antigen Negative (Negative)
--- NOTE | 2024-09-01 07:05 | PTCARENOTE ---
pt admitted from ED, AAOx3. Pt 96% on 6L O2. + headache. Call white within reach and bed in lowest position. Awaiting further plan.
[2024-09-01] MEDS: MUCINEX 600 MG PO ×2 (07:40→20:09)
[2024-09-01] MEDS: PROTONIX 40 MG PO (07:41)
[2024-09-01] MEDS: VIBRAMYCIN 100 MG PO ×2 (07:49→20:09)
[2024-09-01] MEDS: SOLU-MEDROL PF 60 MG IV ×2 (07:49→14:18)
[2024-09-01] MEDS: TYLENOL 650 MG PO ×3 (08:12→21:49)
--- NOTE | 2024-09-01 10:53 | CM ---
Patient seen bedside.
IA completed.
Patient currently with increased oxygen demands, on IV steroids, IV anbx, and nebs.
Patient lives alone in a 1 story home with 6 steps to enter.
patient drives.
Patient independent prior to admission without assistive devices.
patient does have a nebulizer, oxygen, portable oxygen and bipap at home.
Per patient she is usually only on oxygen at HS, and does not use the bipap.
Per patient someone will be able to bring her portable tank in if required at time of d/c.
patient can secure a ride at time of d/c.
Patient denies any any food/house/utilities insecurities at home.
PCP: Dr Alcala
Pharmacy: [facility].
Plan: home no needs anticipated. (possible VN if increased oxygen requirement)
--- NOTE | 2024-09-01 14:13 | W.PN.HOSP.TC ---
Today's Communication/Plan
-
iv steroids
nebs
wean o2 as tolerated
Assessment / Plan
Assessment / Plan
Physical Exam
General: NAD
HEENT: Moist mucous membranes and PERRLA
Respiratory: Other (Decreased breath sounds throughout. Few scattered coarse breath sounds/ rhonchi. No active wheezing.)
Cardiac: S1/S2 and Regular Rhythm; No Murmur
GI: Soft, Non Tender, Non Distended and Normal Bowel Sounds
Musculoskeletal: No Clubbing, No Cyanosis and No Edema
Neuro: AO x 3
A/P: Patient is a 68y F with PMH significant for COPD and anxiety / depression who presents to ED complaining of worsening SOB and cold symptoms over the past 2 days.
AE-COPD
Acute Hypoxemic and Hypercapneic Respiratory Failure secondary to the above
- Admit for further evaluation and treatment.
- SpO2 in the 80s on supplemental oxygen.
- Patient has home O2 that she uses 'as needed' and BiPAP that she wears at night - she does not know the settings.
- IV steroids and taper as able / transition to PO prednisone (which patient takes 40mg / day at baseline).
- Nebs ATC and PRN.
- Mucolytics.
- PO doxycycline given coarse breath sounds / cough. Hold usual azithromycin for now - resume on discharge.
- Consider Pulmonary evaluation if symptoms worsen or persist.
Fibromyalgia
PMR
- Stable. No complaints of pain at present - other than headache.
- Continue current med regimen.
- Resume usual steroid dose at discharge as noted above.
Anxiety / Depression
- Stable. Continue usual outpatient medications.
DVT Prophylaxis: Lovenox
Code Status: Full
Anticipated Discharge: 24 - 48 hours
Subjective/Interval History
-
Date of Service: September 01, 2024
Feels slightly better this morning
Objective Data
-
Vital Signs:
Vital Signs
Temp Pulse Resp BP Pulse Ox
98.2 F 90 17 106/69 94
09/01/24 10:47 09/01/24 11:30 09/01/24 11:30 09/01/24 10:47 09/01/24 11:30
Review of Systems
-
History Source: Patient
All other systems: Not reviewed unless documented
Data Reviewed
-
Diagnostic Radiology: Image personally visualized and interpreted and Report Reviewed by me
Labs: Labs Reviewed by me
[2024-09-01] MEDS: SOLU-MEDROL PF IV (14:29)
--- NOTE | 2024-09-01 15:25 | RESPNOTE ---
Orders for bipap HS and PRN. Patient states she started one at home, but is sending it back. She refused to try one of ours.
[2024-09-01 16:06] LABS: Glucose - Point of Care 186 mg/dl (70-99)
[2024-09-01 16:28] LABS: % Basophils 0.1 % (0-2); % Immature Granulocytes 0.4 % (0-0.5); % Lymphocytes 4.5 % (20.5-51.1); % Monocytes 1.9 % (1.7-9.3); % Neutrophils 93.1 % (42.2-75.2); Absolute Lymphocytes 0.4 10^3/uL (1.2-3.4); Absolute Monocytes 0.2 10^3/uL (0.1-0.6); Hematocrit 45.7 % (37.0-47.0); Hemoglobin 15.1 g/dL (12.0-16.0); Mean Corpuscular Hgb 30.8 pg (27.0-31.0); Mean Corpuscular Volume 93.1 fL (81.0-99.0); Nucleated Red Blood Cells % 0 %; Platelet Count 266 10^3/uL (130-400); Red Blood Cell Count 4.91 10^6/uL (4.20-5.40); Red Cell Dist. Width 11.5 % (11.5-14.5); White Blood Cell Count 8.5 10^3/uL (4.8-10.8)
--- NOTE | 2024-09-01 16:30 | PTCARENOTE ---
Pt HR 230s on the monitor. Pt sitting on edge of bed complaining of heart palpitations. Rapid response called. Rythmn lasted for about 2 mins and broke. HR now 110-120s. BP 140/79. temp 98.1 O2 sat 96% on 6L. BG 186. Pt stated they feel better now.
MD's, ICU nurses and RT came to bedside. Labs drawn. Awaiting results and medication dose adjustments from suspected reaction to nebulizer treatment. Will continue to monitor the pt.
[2024-09-01 16:41] LABS: APTT 26.6 Sec (23.4-35.0); INR 0.97; PT 12.7 Sec (11.4-14.6)
[2024-09-01 16:54] LABS: Troponin I < 0.012 ng/ml
[2024-09-01 17:18] LABS: Magnesium 2.1 mg/dl (1.6-2.3)
--- NOTE | 2024-09-01 17:19 | W.PN.UPDATE ---
Update Note
Progress Note Update
Received call from primary attending that patient had rapid response earlier for arrhythmia. Per RN, arrhythmia last for approximately 2 minutes. Upon my evaluation patient heart rate has settled down to 97 in normal sinus rhythm. Tele with HR
176. EKG was not able to capture rhythm. EKG showed NSR. VR of 108. Patient did state of palpitation while getting nebulizer treatment. Patient stated at home she uses albuterol inhaler and nebulizer as needed but not standing. States at home
she has felt palpitations twice recently. Denies any chest pain currently. of note patient was on Solu-Medrol 60 mg every 6 hours and DuoNebs 4 times daily upon admission for COPD exacerbation. Patient currently is able to speak in complete
sentences. Remains on oxygen. Positive expiratory wheezing. Not tachypneic and not using accessory muscles. Lab work has been ordered and pending. Steroids decreased to 40 mg every 8 hours. DuoNeb discontinued. Patient started on home inhaler
treatment. Avoid beta-phoenix with acute COPD. Could benefit from calcium phoenix. Per discussion with primary attending who requested cardiology evaluation which has been placed.
--- NOTE | 2024-09-01 17:26 | CON.CAR ---
Addendum entered and electronically signed by Chidi Ellison MD 09/01/24 19:39:
TSH was slightly low but Tr4 was fine last month. Will not repeat.
Addendum entered and electronically signed by Chidi Ellison MD 09/01/24 19:37:
I saw and examined the patient.
The CRANE SERVICE TECHNICIAN's note was reviewed and I agree with the note.
Comment: The arrhythmia prompting rapid response was a rapid atrial tachycardia lasting 2 min. at rates of just about 240 bpm. Highly symptomatic but no syncope. In retrospect she has been having these symptoms: brief rapid heart action with
pounding chest and lightheadedness for several years (perhaps 2). On tele looks like a 1:1 ATach with long R-P. A 12 lead could not be obtained. We will add diltiazem ER at low dose and see if it is effective. Given her advacned lung disease a
focal atach is likely but different ATachs over time can be anticipated and so early ablation may not be of high value but will be considered. Will check an echo and TSH. There was no VT.
Original Note:
Consultation
Consultation Request
Date/Time Consultation Requested: 09/01/2024 16:45
Date/Time Consultation Performed: 09/01/2024 17:00
Requesting Provider: Dr. Rutledge
Performing Provider: MUKESH Massey for Dr. Ellison
Reason for Consultation: NSVT
Medical History
-
Chief Complaint: Shortness of breath
History of Present Illness:
Mireya Myers is a 68 year old female (seen by Dr. Gomez in 2015) with COPD, current smoker, and fibromyalgia presented to the ER with shortness of breath. She started with a runny nose three days prior to arrival. She was short of breath for
24 hours before presenting to the ER. She was admitted with a COPD exacerbation. Cardiology was consulted after MASTERCAM PROGRAMMER. Consult is for NSVT. Patient had a sustained atrial arrythmia. She endorsed palpitations. No chest pain. No shortness of breath.
Past Medical History
Past Medical History: COPD and Other (Fibromyalgia)
Social History
Tobacco: Smoker
Alcohol: None
Living: Alone
Employment: Retired
Family History
Family History: Reviewed & Not Pertinent
Allergies / Home Medications
Allergy/AdvReac Type Severity Reaction Status Date / Time
amoxicillin Allergy Anaphylaxis Verified 04/24/24 09:27
�Medication �Instructions �Recorded �Confirmed �Type
zolpidem 10 mg tablet 5 mg PO HSPRN PRN sleep 05/04/23 09/01/24 History
albuterol sulfate 90 mcg/actuation 2 puff inhalation R Q4HPRN PRN sob 08/20/23 09/01/24 History
aerosol inhaler
therapeutic multivitamin 1 tab PO DAILY Supplement 08/20/23 09/01/24 History
azithromycin 250 mg tablet 250 mg PO DAILY 4 days #4 tabs 08/22/23 09/01/24 Rx
ensifentrine 3 mg/2.5 mL 2.5 ml inhalation BID COPD 09/01/24 09/01/24 History
suspension for nebulization
(Ohtuvayre)
fluticasone fur. 200 mcg-umeclid 1 inh inhalation DAILY COPD 09/01/24 09/01/24 History
62.5 mcg-vilant 25 mcg
inhalat.powder (Trelegy Ellipta)
prednisone 5 mg tablet 5 mg PO DAILY COPD 09/01/24 09/01/24 History
Review of Systems
-
History Source: Patient
All other systems: Negative unless noted
Constitutional: Fatigue
EENT: No Symptoms
Respiratory: Trouble Breathing
Cardiac: Palpitations
Abdomen/GI: No Symptoms
: No Symptoms
Musculoskeletal: No Symptoms
Skin: No Symptoms
Neurological: No Symptoms
Endocrine: No Symptoms
Hematologic/Lymphatic: No Symptoms
Physical Exam
Vital Signs
Temp Pulse Resp BP Pulse Ox
98.1 F 119 20 140/79 94
09/01/24 16:00 09/01/24 16:00 09/01/24 16:00 09/01/24 16:00 09/01/24 16:00
Lab Results
09/01/24 16:10
Troponin I < 0.012 ng/ml 09/01/24 16:10
Physical Exam
General: Well Developed, Well Nourished and Comfortable
HEENT: Normocephalic, Anicteric and Moist Mucous Membranes
Respiratory: Wheezes and Non Labored Respirations
Cardiac: S1/S2 and Regular Rhythm; Negative Peripheral Edema
Breast: Deferred by me
GI: Soft, Non Tender, Non Distended and Normal Bowel Sounds
Rectal: Deferred by Provider
Genito-urinary: No Costovertebral Tender
Musculoskeletal: No Clubbing, No Cyanosis and No Edema
Skin: Warm and Dry
Neuro: AO x 3
Hematologic/Lymphatic: No Lymphadenopathy
Psych: Calm
Impression / Plan
-
Atrial tachycardia
-Start diltiazem CD 120 mg daily
-Electrolytes pending, stable this morning
-TTE in am
COPD, acute exacerbation, follows with pulmonary
Current smoker, cessation recommended
Fibromyalgia
PMR
Data Reviewed
-
Labs: Labs Reviewed by me
Old Records: Reviewed
[2024-09-01] MEDS: LOVENOX 40 MG SC (17:27)
[2024-09-01 17:51] LABS: Blood Urea Nitrogen 15 mg/dl (7-17); Calcium 9.8 mg/dl (8.4-10.2); Carbon Dioxide 37 mmol/L (22-30); Chloride 93 mmol/L (98-107); Glucose 165 mg/dl (70-99)
[2024-09-01 18:00] LABS: Estimated Creatinine Clearance 76 ml/min; Potassium 4.9 mmol/L (3.5-5.1); Sodium 139 mmol/L (135-145); eGFR > 60.00
[2024-09-01] MEDS: SYMBICORT 160/4.5 MCG INHALER 2 PUFF INH (19:33)
[2024-09-01] MEDS: CARDIZEM CD 120 MG PO (20:09)
[2024-09-01] MEDS: SOLU-MEDROL PF 40 MG IV (21:50)
[2024-09-01 22:52] LABS: Glucose - Point of Care 154 mg/dl (70-99)
[2024-09-01 23:10] LABS: % Basophils 0.1 % (0-2); % Immature Granulocytes 0.3 % (0-0.5); % Lymphocytes 4.5 % (20.5-51.1); % Monocytes 4.5 % (1.7-9.3); % Neutrophils 90.6 % (42.2-75.2); Absolute Lymphocytes 0.5 10^3/uL (1.2-3.4); Absolute Monocytes 0.5 10^3/uL (0.1-0.6); Hematocrit 40.1 % (37.0-47.0); Hemoglobin 13.5 g/dL (12.0-16.0); Mean Corp Hgb Conc. 33.7 g/dL (33.0-37.0); Mean Corpuscular Hgb 30.6 pg (27.0-31.0); Mean Corpuscular Volume 90.9 fL (81.0-99.0); Nucleated Red Blood Cells % 0 %; Platelet Count 259 10^3/uL (130-400); Red Blood Cell Count 4.41 10^6/uL (4.20-5.40); Red Cell Dist. Width 11.4 % (11.5-14.5); White Blood Cell Count 9.9 10^3/uL (4.8-10.8)
--- NOTE | 2024-09-01 23:10 | W.PN.UPDATE ---
Update Note
Progress Note Update
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
- hr in 200s while the patient out of bed using BSC. Patient had similar episode during dayshift and was noted with hr in 200s, Duo nebs was changed to Xopenex and Patient was started on daily dose of 120 mg Cardizem by cardiology. Patient received
first dose around 2 hrs before MARINE ENGINE MACHINIST APPRENTICE around 8pm.
-Currently patient is afebrile, SPO2 92% on 4 L of O2. Denied chest pain. Neg troponin during dayshift. Hr down to 90s. Patient seems to have difficult breathing while she is talking.
-Patient on Xopenex as needed for SOB
-Will repeat chest x-ray, and check cbc, bmp, and mag.
-Lab result unremarkable, chest x-ray result is pending.
[2024-09-01 23:23] LABS: Blood Urea Nitrogen 17 mg/dl (7-17); Calcium 9.4 mg/dl (8.4-10.2); Carbon Dioxide 36 mmol/L (22-30); Chloride 94 mmol/L (98-107); Estimated Creatinine Clearance 76 ml/min; Glucose 155 mg/dl (70-99); Potassium 4.8 mmol/L (3.5-5.1); Sodium 139 mmol/L (135-145); eGFR > 60.00
[2024-09-01] MEDS: MELATONIN 5 MG PO (23:25)
[2024-09-02] VITALS (7 sets, daily range): BP systolic 104–121; BP diastolic 58–76; PULSE 85–96
--- NOTE | 2024-09-02 04:05 | PTCARENOTE ---
Patient @2245 HR on tele monitor sustaining in the 230s shortly after getting back in bed from using the BSC. Patient AAOx3 c/o 'heart racing', denies any chest pain. Rapid Response called, BP 124/73 HR 190 temp 98.0 RR 20 on Pox 92% on O2 @4L. Pt
broke on own back to NSR, plan of care continues, labs and chest Xray order, please see Rapid Response note.
--- NOTE | 2024-09-02 04:26 | PTCARENOTE ---
Patient had approximately 90 beat run of VTach @ 0316. Patient AAOX3, asymptomatic, vitals BP 115/63 HR 92 RR 16 Pox 100% on O2@5L. SCALE CLERK made aware, no new orders, will continue plan of care.
[2024-09-02] MEDS: SOLU-MEDROL PF 40 MG IV ×2 (06:20→17:32)
[2024-09-02] MEDS: SYMBICORT 160/4.5 MCG INHALER 2 PUFF INH ×2 (07:33→20:02)
[2024-09-02] MEDS: SPIRIVA RESPIMAT 2.5 MCG 2 PUFF INH (07:33)
[2024-09-02 08:09] LABS: Hematocrit 41.4 % (37.0-47.0); Hemoglobin 13.6 g/dL (12.0-16.0); Mean Corp Hgb Conc. 32.9 g/dL (33.0-37.0); Mean Corpuscular Hgb 30.6 pg (27.0-31.0); Mean Platelet Volume 9.3 fL (7.4-10.4); Platelet Count 271 10^3/uL (130-400); Red Blood Cell Count 4.45 10^6/uL (4.20-5.40); Red Cell Dist. Width 11.3 % (11.5-14.5)
[2024-09-02 08:38] LABS: Blood Urea Nitrogen 19 mg/dl (7-17); Calcium 9.3 mg/dl (8.4-10.2); Carbon Dioxide 39 mmol/L (22-30); Chloride 93 mmol/L (98-107); Estimated Creatinine Clearance 76 ml/min; Glucose 132 mg/dl (70-99); Potassium 4.8 mmol/L (3.5-5.1); Sodium 140 mmol/L (135-145); eGFR > 60.00
[2024-09-02] MEDS: CARDIZEM CD 120 MG PO (08:47)
[2024-09-02] MEDS: VIBRAMYCIN 100 MG PO ×2 (08:48→20:14)
[2024-09-02] MEDS: PROTONIX 40 MG PO (08:48)
[2024-09-02] MEDS: MUCINEX 600 MG PO ×2 (08:48→20:14)
--- NOTE | 2024-09-02 10:12 | W.PN.HOSP.TC ---
Today's Communication/Plan
-
Diltiazem ER titration monitoring HR
Reduce Solu-Medrol to 40 mg every 12
Add on TSH with reflex free T4
ECHO
Assessment / Plan
Assessment / Plan
Physical Exam
General: NAD
HEENT: Moist mucous membranes and PERRLA
Respiratory: Other (Decreased breath sounds throughout. Wheezing improved)
Cardiac: S1/S2 and Regular Rhythm; No Murmur
GI: Soft, Non Tender, Non Distended and Normal Bowel Sounds
Musculoskeletal: No Clubbing, No Cyanosis and No Edema
Neuro: AO x 3
A/P: Patient is a 68y F with PMH significant for COPD and anxiety / depression who presents to ED complaining of worsening SOB and cold symptoms over the past 2 days.
AE-COPD
Acute Hypoxemic and Hypercapneic Respiratory Failure secondary to the above
- Admit for further evaluation and treatment.
- SpO2 in the 80s on supplemental oxygen.
- Patient has home O2 that she uses 'as needed' and BiPAP that she wears at night - she does not know the settings.
- Switch methylprednisolone to 40 mg every 12, anticipate switching to p.o. tomorrow
- Switch nebulizers to Xopenex as needed due to rapid atrial tachycardia
- Mucolytics.
- PO doxycycline given coarse breath sounds / cough. Hold usual azithromycin for now - resume on discharge.
- Consider Pulmonary evaluation if symptoms worsen or persist.
#Rapid atrial tachycardia
� Started on diltiazem ER
� Follow-up echocardiogram
�F/u TSH
-Cards on board
Fibromyalgia
PMR
- Stable.
- Continue current med regimen.
- Resume usual steroid dose at discharge as noted above.
Anxiety / Depression
- Stable. Continue usual outpatient medications.
DVT Prophylaxis: Lovenox
Code Status: Full
Total time spent on today's encounter was 51 minutes which included time spent in counseling the patient/family regarding diagnosis and treatment plan as listed above, goals of care, and symptom management. Case was discussed with nursing staff,
specialists, and care coordinators/case management. All labs and imaging personally reviewed by me. Remainder the time spent in detailed review of previous records, lab data, imaging, and other medical provider documentation.
Anticipated Discharge: Within 24 hours
Subjective/Interval History
-
Date of Service: September 02, 2024
Recurrent episodes of rapid atrial tachycardia yesterday afternoon and last night, placed on diltiazem ER. patient sitting in bed resting comfortably today. Change inhalers to Xopenex
Objective Data
-
Labs:
Laboratory Results
09/01/24 09/02/24
23:00 07:21
WBC 9.9 10.0
Hgb 13.5 13.6
Hct 40.1 41.4
Plt Count 259 271
Sodium 139 140
Potassium 4.8 4.8
Chloride 94 L 93 L
Carbon Dioxide 36 H 39 H
BUN 17 19 H
Creatinine 0.6 0.6
Glucose 155 H 132 H
Calcium 9.4 9.3
Vital Signs:
Vital Signs
Temp Pulse Resp BP Pulse Ox
97.8 F 90 16 112/63 92
09/02/24 07:35 09/02/24 08:47 09/02/24 07:38 09/02/24 08:47 09/02/24 07:38
I&O
09/01/24 09/02/24 09/03/24
06:59 06:59 06:59
Intake Total 1020 / 1020
Balance 1020 / 1020
Review of Systems
-
History Source: Patient
All other systems: Not reviewed unless documented
Data Reviewed
-
Diagnostic Radiology: Image personally visualized and interpreted and Report Reviewed by me
Labs: Labs Reviewed by me
--- NOTE | 2024-09-02 10:21 | W.PN.CD ---
Today's Communication / Plan
-
Continue Diltiazem
I reviewed Valsalva maneuver that can terminate typical SVTs and some ATs
Impression / Plan
-
Atrial tachycardia
-Start diltiazem CD 120 mg daily
-Electrolytes pending, stable this morning
-Longest episode here was last night at 2245 hrs lasting about 6 min at rates of 230 bpm, quite symptomatic with her SVT/AT
-Echo today
- Can increase dilt in a few days if needed and as tolerated
COPD, acute exacerbation, follows with pulmonary
Current smoker, cessation recommended
Fibromyalgia
PMR
Subjective:
Dyspnea stable to a bit better.
Physical Exam
Vital Signs/Labs
Vital Signs
Temp Pulse Resp BP Pulse Ox
97.8 F 90 16 112/63 92
09/02/24 07:35 09/02/24 08:47 09/02/24 07:38 09/02/24 08:47 09/02/24 07:38
09/01/24 09/02/24 09/03/24
06:59 06:59 06:59
Actual Weight 55.2 kg
09/02/24 07:21
09/02/24 07:21
PT 12.7 Sec (11.4-14.6) 09/01/24 16:10
INR 0.97 09/01/24 16:10
APTT 26.6 Sec (23.4-35.0) 09/01/24 16:10
Magnesium 2.0 mg/dl (1.6-2.3) 09/01/24 23:00
LAB Results
09/01/24
16:10
Troponin I < 0.012
Physical Exam
Constitutional: No acute distress
EENT: Anicteric
Cardiovascular: Rhythm & rate is regular and Pedal edema is absent
Respiratory: Respiratory effort normal and Lungs clear to auscul.
GI: Soft and Distention absent
Neuro/Psych: AO x 3
Data Reviewed
-
Date of Service: September 02, 2024
[2024-09-02 11:44] LABS: TSH Reflex To Free T4 0.35 uIU/ml (0.47-4.68)
[2024-09-02 12:15] LABS: Free T4 1.08 ng/dl (0.78-2.19)
--- NOTE | 2024-09-02 14:12 | RESPNOTE ---
Patient uses vest at home. Attempted therapy with vest and patient was not able to tolerate despite decrease in intensity of settings. She states maybe she will try again later.
[2024-09-02] MEDS: LOVENOX 40 MG SC (17:31)
[2024-09-02] MEDS: TYLENOL 650 MG PO (20:14)
[2024-09-02] MEDS: ROBITUSSIN 100 MG PO (21:17)
[2024-09-02] MEDS: MELATONIN 5 MG PO (21:17)
[2024-09-03 03:18] VITALS: BP 109/64
[2024-09-03] MEDS: SOLU-MEDROL PF 40 MG IV (06:12)
[2024-09-03 06:43] LABS: Hematocrit 43.6 % (37.0-47.0); Hemoglobin 14.4 g/dL (12.0-16.0); Mean Corpuscular Hgb 31.6 pg (27.0-31.0); Mean Corpuscular Volume 95.8 fL (81.0-99.0); Mean Platelet Volume 9.1 fL (7.4-10.4); Platelet Count 265 10^3/uL (130-400); Red Blood Cell Count 4.55 10^6/uL (4.20-5.40); Red Cell Dist. Width 11.4 % (11.5-14.5); White Blood Cell Count 10.4 10^3/uL (4.8-10.8)
[2024-09-03 07:17] LABS: ALT (SGPT) 29 U/L (0-35); AST (SGOT) 25 U/L (14-36); Albumin 3.6 g/dl (3.5-5.0); Alkaline Phosphatase 40 U/L (38-126); Blood Urea Nitrogen 22 mg/dl (7-17); Calcium 9.5 mg/dl (8.4-10.2); Chloride 92 mmol/L (98-107); Estimated Creatinine Clearance 65 ml/min; Glucose 119 mg/dl (70-99); Magnesium 2.2 mg/dl (1.6-2.3); Potassium 4.9 mmol/L (3.5-5.1); Sodium 139 mmol/L (135-145); Total Bilirubin 0.2 mg/dl (0.2-1.3); Total Protein 5.8 g/dl (6.3-8.2); eGFR > 60.00
[2024-09-03 07:27] LABS: Carbon Dioxide 38 mmol/L (22-30)
[2024-09-03 07:37] VITALS: BP 96/54
[2024-09-03] MEDS: SYMBICORT 160/4.5 MCG INHALER 2 PUFF INH ×2 (08:28→20:02)
[2024-09-03] MEDS: SPIRIVA RESPIMAT 2.5 MCG 2 PUFF INH (08:28)
[2024-09-03] MEDS: VIBRAMYCIN 100 MG PO ×2 (08:39→20:17)
[2024-09-03] MEDS: MUCINEX 600 MG PO ×2 (08:40→20:11)
[2024-09-03] MEDS: PROTONIX 40 MG PO (08:40)
[2024-09-03] MEDS: CARDIZEM CD 120 MG PO (08:40)
[2024-09-03] MEDS: ROBITUSSIN 100 MG PO ×3 (08:40→22:16)
--- NOTE | 2024-09-03 09:28 | W.PN.CD ---
Today's Communication / Plan
-
-Patient in sinus rhythm overnight, no A. tach; mild sinus tachycardia this a.m.
-Continue diltiazem CD 120 mg daily; unable to increase secondary to blood pressure limitations.
-Patient will have some degree of resting sinus tachycardia at this time secondary to underlying lung disease and treatments.
Impression / Plan
-
Paroxysmal atrial tachycardia
-Patient in sinus rhythm overnight, no A. tach; mild sinus tachycardia this a.m.
-Continue diltiazem CD 120 mg daily; unable to increase secondary to blood pressure limitations.
-Patient will have some degree of resting sinus tachycardia at this time secondary to underlying lung disease and treatments.
-Echocardiogram yesterday with overall normal cardiac function.
COPD, acute exacerbation, follows with pulmonary --management as per primary team.
Current smoker, cessation recommended
Fibromyalgia
PMR
Subjective:
Still with some shortness of breath and cough.
Physical Exam
Vital Signs/Labs
Vital Signs
Temp Pulse Resp BP Pulse Ox
98.0 F 84 20 96/54 94
09/03/24 07:37 09/03/24 08:29 09/03/24 08:29 09/03/24 07:37 09/03/24 08:29
09/03/24 06:18
09/03/24 06:18
PT 12.7 Sec (11.4-14.6) 09/01/24 16:10
INR 0.97 09/01/24 16:10
APTT 26.6 Sec (23.4-35.0) 09/01/24 16:10
Magnesium 2.2 mg/dl (1.6-2.3) 09/03/24 06:18
Free T4 1.08 ng/dl (0.78-2.19) 09/02/24 07:21
LAB Results
09/01/24
16:10
Troponin I < 0.012
Physical Exam
Constitutional: No acute distress and Comfortable
EENT: Anicteric
Cardiovascular: Rhythm & rate is regular, Pedal edema is absent, Systolic murmur absent and S1S2 is normal
Respiratory: Respiratory effort normal, Crackles Absent and Wheeze Present
GI: Soft
Neuro/Psych: AO x 3
Other: Skin (Warm, dry, intact)
Data Reviewed
-
Date of Service: September 03, 2024
EKG: Tracing Personally Visualized and interpreted (Sinus tachycardia)
Echo: Tracing Personally Visualized and interpreted (EF 60-65%)
Medical Tests (PFT, Pathology etc): Discussed with Patient
Labs: Labs Reviewed by me
[2024-09-03] MEDS: PLAVIX 600 MG PO (10:24)
[2024-09-03 11:20] VITALS: BP 106/53
[2024-09-03] MEDS: TYLENOL 650 MG PO ×2 (12:20→22:15)
--- NOTE | 2024-09-03 13:51 | W.PN.HOSP.TC ---
Today's Communication/Plan
-
switch to Xopenex standing
solumedrol 60mg q8h
pulm consult
Assessment / Plan
Assessment / Plan
Physical Exam
General: NAD
HEENT: Moist mucous membranes and PERRLA
Respiratory: Other (slight wheezing bilaterally)
Cardiac: S1/S2 and Regular Rhythm; No Murmur
GI: Soft, Non Tender, Non Distended and Normal Bowel Sounds
Musculoskeletal: No Clubbing, No Cyanosis and No Edema
Neuro: AO x 3
A/P: Patient is a 68y F with PMH significant for COPD and anxiety / depression who presents to ED complaining of worsening SOB and cold symptoms over the past 2 days.
AE-COPD
Acute Hypoxemic and Hypercapneic Respiratory Failure secondary to the above
- Admit for further evaluation and treatment.
- SpO2 in the 80s on supplemental oxygen.
- Patient has home O2 that she uses 'as needed' and BiPAP that she wears at night - she does not know the settings.
- Switch methylprednisolone to to 60 mg every 8 hours
- Switch nebulizers to Xopenex standing; hold on DuoNebs due to rapid atrial tachycardia
- Mucolytics.
- PO doxycycline given coarse breath sounds / cough. Hold usual azithromycin for now - resume on discharge.
- Pulmonary evaluation
#Rapid atrial tachycardia
� Started on diltiazem ER
� Follow-up echocardiogram - no gross abnormalities
�TFTs WNL
-Cards on board
Fibromyalgia
PMR
- Stable.
- Continue current med regimen.
- Resume usual steroid dose at discharge as noted above.
Anxiety / Depression
- Stable. Continue usual outpatient medications.
DVT Prophylaxis: Lovenox
Code Status: Full
Total time spent on today's encounter was 52 minutes which included time spent in counseling the patient/family regarding diagnosis and treatment plan as listed above, goals of care, and symptom management. Case was discussed with nursing staff,
specialists, and care coordinators/case management. All labs and imaging personally reviewed by me. Remainder the time spent in detailed review of previous records, lab data, imaging, and other medical provider documentation.
Anticipated Discharge: Within 24 hours
Subjective/Interval History
-
Date of Service: September 03, 2024
Wheezing slightly worse
Objective Data
-
Labs:
Laboratory Results
09/03/24
06:18
WBC 10.4
Hgb 14.4
Hct 43.6
Plt Count 265
Sodium 139
Potassium 4.9
Chloride 92 L
Carbon Dioxide 38 H
BUN 22 H
Creatinine 0.7
Glucose 119 H
Calcium 9.5
Total Bilirubin 0.2
AST 25
ALT 29
Alkaline Phosphatase 40
Vital Signs:
Vital Signs
Temp Pulse Resp BP Pulse Ox
97.9 F 85 18 106/53 92
09/03/24 11:20 09/03/24 11:20 09/03/24 11:20 09/03/24 11:20 09/03/24 12:30
I&O
09/02/24 09/03/24 09/04/24
06:59 06:59 06:59
Intake Total 1020 / 1020 240 / 240 480 / 480
Balance 1020 / 1020 240 / 240 480 / 480
Review of Systems
-
History Source: Patient
All other systems: Not reviewed unless documented
Data Reviewed
-
Diagnostic Radiology: Image personally visualized and interpreted and Report Reviewed by me
Labs: Labs Reviewed by me
--- NOTE | 2024-09-03 14:31 | CON.PUL ---
Consultation
Consultation Request
Date/Time Consultation Requested: 09/03/2024 - 134
Date/Time Consultation Performed: 09/03/2024 - 140
Requesting Provider: Dr. Sheehan
Performing Provider: Dr. Langston
Reason for Consultation: COPD exacerbation
Medical History
-
Chief Complaint: Worsening SOB
History of Present Illness:
68-year-old female active tobacco smoker with a past medical history of COPD on nebulized ohtuvayre and prn O2, Zenker's diverticulum, osteoarthritis, diverticulosis, insomnia, following nausea, hyperlipidemia and migraine headaches who presents
with worsening SOB x 2 days. Reportedly when EMS arrived her saturations with 50% on room air. She was given DuoNebs and brought here to the ER. At home she uses 2 L/min as needed. She did report she had had a runny nose with cold-like symptoms
for a few days [employer]. In the ER she was afebrile to 98.7 �F, pulse rate 100, breathing at 18 breaths minute, BP 159/85 and saturating 93% on 6 L/min nasal cannula. Labs showed leukocytosis to 15.7, Hb 15.1, serum bicarbonate level 35, glucose 185,
AST 47, troponin negative at <0.012, and COVID antigen negative. Flu A/B swab also negative. CXR showed hyperinflated lungs with small bilateral pleural effusions and linear scarring within the lower lungs. In the ER, patient was given Decadron
10 mg, DuoNebs + Zofran and admitted to telemetry under the hospitalist. Patient has been continued on Solu-Medrol 40mg IV q12hr, with nebulized bronchodilators, however developed atrial tachycardia with rates as high as 230bpm and shortness of
breath worsened. Cardiology consulted. Pulmonary now consulted for additional management/recommendations.
When I saw the patient she was resting in bed on 2 L/min breathing comfortably. She has a wet, harsh sounding cough. She said that she has been coughing up white phlegm. She does have difficulty bringing it up and she uses a vest at home twice a
day which helps. She has confusion related to her NIV at home, as she has been using her nasal cannula underneath her fullface mask. She says that she uses it for the bare minimum and wakes up with worsening congestion. Ultimately she feels like
she is improving and is eager to go home. She currently denies chest pain, JURADO, abdominal pain, nausea, fevers or chills. She is motivated to stop smoking, and has a history of smoking 0.5 PPD x 50 years.
Of note, patient follows with us in the [facility] office, last visit on 08/05/2024 with MUKESH Grider. Previously seen by Dr. Martinez. She is managed on Trelegy 200mcg for very severe COPD with albuterol twice a day. Also on chronic Zithromax
daily and has required prednisone taper on a monthly basis for recurrent flares. She did start pulmonary rehab but only completed half the program. She had tried Breztri in the past but this worsened her cough. 6 MWT showed she needs 1 L/min with
ambulation. She continues to smoke cigarettes about 4-5 cigarettes/day. She has tried Chantix in the past which caused GI upset and she is on Wellbutrin. She does use an IV therapy for chronic respiratory failure with hypercapnia. Last full PFT
performed on 10/02/2023 showing very severe COPD with significant bronchodilator response, with mild restrictive lung defect (VC: 71% predicted) and very severe gas change capacity defect (DLco: 15%, DLco/VA: 21% predicted). She was told to
follow-up in 3 months with full PFT at that time.
PMHx: Fibromyalgia, insomnia, osteoarthritis, diverticulosis, PMR, tobacco use disorder, Zenker's diverticulum, cervical stenosis, COPD on home O2 with 2 L/min used prn, hyperlipidemia, migraine headaches
PSHx: D&C, cataract extraction, section, no surgery (benign tumor � 2018)
Past Medical History
Past Medical History: Other (Above as per HPI)
Past Surgical History: Other (Above as per HPI)
Social History
Tobacco: Smoker (Smokes 4-5 cigarettes a day with 44-ygct-vrom history (she reports 0.5 PPD x 50 years)
Alcohol: Occasional
Drug: None
Personal: ( about 2 years ago from a combination of heart disease/COPD/bladder cancer)
Family History
Family History: CAD (Mother: of an ND at age 63), Cancer (Paternal first cousin: Ovarian cancer; father: Prostate cancer) and Other (Father: History of CVA ( at age 90 from this))
Allergies / Home Medications
Allergies
Allergy/AdvReac Type Severity Reaction Status Date / Time
amoxicillin Allergy Anaphylaxis Verified 04/24/24 09:27
Home Medications
�Medication �Instructions �Recorded �Confirmed �Last Taken �Type
zolpidem 10 mg tablet 5 mg PO HSPRN PRN sleep 05/04/23 09/01/24 08/20/23 History
albuterol sulfate 90 mcg/actuation 2 puff inhalation R Q4HPRN PRN sob 08/20/23 09/01/24 08/20/23 History
aerosol inhaler
therapeutic multivitamin 1 tab PO DAILY Supplement 08/20/23 09/01/24 08/31/24 08:00 History
azithromycin 250 mg tablet 250 mg PO DAILY 4 days #4 tabs 08/22/23 09/01/24 08/31/24 08:00 Rx
ensifentrine 3 mg/2.5 mL 2.5 ml inhalation BID COPD 09/01/24 09/01/24 08/31/24 08:00 History
suspension for nebulization
(Ohtuvayre)
fluticasone fur. 200 mcg-umeclid 1 inh inhalation DAILY COPD 09/01/24 09/01/24 08/31/24 08:00 History
62.5 mcg-vilant 25 mcg
inhalat.powder (Trelegy Ellipta)
prednisone 5 mg tablet 5 mg PO DAILY COPD 09/01/24 09/01/24 08/31/24 08:00 History
Review of Systems
-
History Source: Patient
All other systems: Negative unless noted
Vitals / Labs / Diagnostic Testing
Vital Signs
Temp Pulse Resp BP Pulse Ox
98.0 F 87 17 101/52 88
09/03/24 15:39 09/03/24 15:39 09/03/24 15:39 09/03/24 15:39 09/03/24 15:39
Lab Data
09/03/24 06:18
09/03/24 06:18
Microbiology
09/01/24 04:44 Nasal Swab Influenza Types A & B (CATRACHO) - Final
Negative for Influenza A & B, NAAT
Negative results must be combined with clinical observations
and patient history.
Nucleic Acid Amplification test (NAAT)performed on the
[employer] platform.
Diagnostic Testing:
Physical Exam
-
HEENT: Normocephalic and Anicteric
Cardiovascular: S1/S2 and Peripheral Edema (negative)
Respiratory: Wheeze (Expiratory wheezing heard bilaterally), Rales (negative), Rhonchi (negative), Non-Labored Respirations and Other (Diminished breath sounds bilaterally)
GI: Soft, Non Distended, Non Tender and Normal Bowel Sounds
Neurology: AO x 3 and Tremors (negative)
Skin: Warm and Dry
General: Respiratory Distress (negative), Comfortable, Chills (negative) and Sweats (negative)
Assessment
-
Assessment: 68-year-old female active tobacco smoker with a past medical history of COPD on nebulized ohtuvayre and prn O2, Zenker's diverticulum, osteoarthritis, diverticulosis, insomnia, following nausea, hyperlipidemia and migraine headaches who
presents with worsening SOB x 2 days. Reportedly when EMS arrived her saturations with 50% on room air. She was given DuoNebs and brought here to the ER. At home she uses 2 L/min as needed. She did report she had had a runny nose with cold-like
symptoms for a few days [employer]. In the ER she was afebrile to 98.7 �F, pulse rate 100, breathing at 18 breaths minute, BP 159/85 and saturating 93% on 6 L/min nasal cannula. Labs showed leukocytosis to 15.7, Hb 15.1, serum bicarbonate level 35,
glucose 185, AST 47, troponin negative at <0.012, and COVID antigen negative. Flu A/B swab also negative. CXR showed hyperinflated lungs with small bilateral pleural effusions and linear scarring within the lower lungs. In the ER, patient was
given Decadron 10 mg, DuoNebs + Zofran and admitted to telemetry under the hospitalist. Patient has been continued on Solu-Medrol 40mg IV q12hr, with nebulized bronchodilators, however developed atrial tachycardia with rates as high as 230bpm and
shortness of breath worsened. Cardiology consulted. Pulmonary now consulted for additional management/recommendations.
Chronic conditions [employer]: Fibromyalgia, insomnia, osteoarthritis, diverticulosis, PMR, tobacco use disorder, Zenker's diverticulum, cervical stenosis, COPD on home O2 with 2 L/min used prn, hyperlipidemia, migraine headaches
Impression:
#Acute exacerbation of COPD
#Metabolic alkalosis, likely due to chronic hypercapnic respiratory failure
#Subclinical hyperthyroidism (TSH: 0.35, free T4: 1.08)
#Small bilateral pleural effusions seen on CXR (09/01/2024)
#Chronic hypercapnic respite failure on nocturnal NIV
#History of very severe COPD with very severe gas exchange capacity defect (post�bronchodilator FEV1: 0.67 L / 30% predicted; DLco: 15% predicted via PFT on 10/02/2023)
#Osteoarthritis
#Migraine headaches
#Hyperlipidemia
Plan:
- Continue with systemic steroids and wean as she clinically improves
- Currently on Solu-Medrol 60 mg IV q8hr --> if she does well with her SOB by tomorrow with improved wheezing, then tomorrow can start weaning to 40mg IV q12hr tomorrow
- Maintain euglycemia with goal BG >100 and <180 while on high-dose steroids
- Unfortunately we do not carry ensifentrine here; can resume this upon discharge; can consider using Daliresp while hospitalized instead
- Given her recent atrial tachycardia, continue Xopenex q6hr with Symbicort 160mcg + Spiriva Respimat; resume Trelegy upon discharge
- prn nebulized bronchodilators (xopenex) for breakthrough symptoms
- Currently on Doxy for a cough with possible acute bronchitis -->would Tx for total of 5-7 days then stop assuming she continues to clinically improve & remains afebrile x 48 hrs prior to stopping
- Given her elevated serum bicarbonate level, I will check a blood gas to assess her pH + pCO2
- She does have a history of chronic hypercapnia and is on volume targeted PS mode NIV at night, with TV: 430, itime: 1 sec, 12 bpm with PEEP of 8 and min PS: 7 cmH2O
- Continue with BiPAP while here in the hospital - she is refusing
- Maintain SpO2 88-95% with supplemental O2 as needed
- She has evidence of small bilateral pleural effusions on imaging with CXR from admission
- Echo performed on 09/02/2024 shows normal LV size and systolic function without regional WMA, with mild MR and normal RV size and function; normal PASP of 20-25 mmHg w/ trace TR
- No evidence of volume overload clinically; continue to monitor
- Incentive spirometer encouraged 10x per hour for at least 4 hrs a day
- Replete electrolytes with K>4, Mg>2
- Maintain euglycemia with goal BG >100 and <180
- DVT ppx
Pulmonary service will continue to follow along. She already has a follow-up arranged for 11/11/[address] Lafleur, and this will be moved up given her current exacerbation.
Data:
CXR 09/01/2024:
Hyperinflated lungs suggesting COPD.
Small bilateral pleural effusions.
Linear scarring within the lower lungs.
Transthoracic echocardiogram 09/02/2024:
Normal biventricular size and systolic function without regional wall motion
abnormality.
Mild mitral regurgitation.
No prior study available for comparison.
Total time spent today was 58 minutes for this encounter. Time includes reviewing laboratory test/imaging results, reviewing pertinent medical records, obtaining and reviewing medical history, performing an appropriate exam, ordering medications,
tests and procedures. Time also includes documentation of this encounter, coordinating patient care and communicating with other healthcare professionals. Total time does not include separately billed tests performed on this date of service.
[2024-09-03] MEDS: SOLU-MEDROL PF 60 MG IV ×2 (15:01→22:17)
[2024-09-03 15:39] VITALS: BP 101/52
[2024-09-03] MEDS: XOPENEX 0.63 MG INHALANT SOLUTION INH ×2 (15:46→20:05)
[2024-09-03] MEDS: LOVENOX 40 MG SC (18:36)
[2024-09-03 20:08] VITALS: BP 135/82
--- NOTE | 2024-09-03 21:36 | RESPNOTE ---
Patient has declined BiPAP use for tonight
[2024-09-03 23:41] VITALS: BP 125/46
[2024-09-04] VITALS (7 sets, daily range): BP systolic 99–143; BP diastolic 60–82; PULSE 80–110
[2024-09-04] MEDS: XOPENEX 0.63 MG INHALANT SOLUTION INH ×4 (01:31→19:21)
[2024-09-04] MEDS: MELATONIN 3 MG PO ×2 (01:52→22:28)
[2024-09-04] MEDS: SOLU-MEDROL PF 60 MG IV ×2 (05:29→13:11)
[2024-09-04 06:59] LABS: Venous Blood Gas B.E. 14.2 mmol/L (-4 to +4); Venous Blood Gas HCO3 42.7 mmol/L (22-27); Venous Blood Gas O2 Sat % 99.6 %; Venous Blood Gas pCO2 69 mmHg (35-48); Venous Blood Gas pO2 154 mmHg (30-50)
[2024-09-04 07:00] LABS: Venous Blood Gas O2 Therapy 2L/min
[2024-09-04 07:01] LABS: Hemoglobin 14.2 g/dL (12.0-16.0); Mean Corp Hgb Conc. 33.8 g/dL (33.0-37.0); Mean Corpuscular Hgb 31.8 pg (27.0-31.0); Mean Corpuscular Volume 94.2 fL (81.0-99.0); Mean Platelet Volume 8.8 fL (7.4-10.4); Platelet Count 244 10^3/uL (130-400); Red Blood Cell Count 4.46 10^6/uL (4.20-5.40); Red Cell Dist. Width 11.3 % (11.5-14.5); White Blood Cell Count 8.2 10^3/uL (4.8-10.8)
[2024-09-04] MEDS: SPIRIVA RESPIMAT 2.5 MCG 2 PUFF INH (07:36)
[2024-09-04] MEDS: SYMBICORT 160/4.5 MCG INHALER 2 PUFF INH ×2 (07:37→19:21)
[2024-09-04] MEDS: PROTONIX 40 MG PO (07:46)
[2024-09-04] MEDS: VIBRAMYCIN 100 MG PO ×2 (07:46→19:52)
[2024-09-04] MEDS: CARDIZEM CD 120 MG PO (07:46)
[2024-09-04] MEDS: MUCINEX 600 MG PO ×2 (07:46→19:48)
[2024-09-04 08:03] LABS: ALT (SGPT) 26 U/L (0-35); AST (SGOT) 21 U/L (14-36); Albumin 3.4 g/dl (3.5-5.0); Alkaline Phosphatase 37 U/L (38-126); Blood Urea Nitrogen 21 mg/dl (7-17); Calcium 9.3 mg/dl (8.4-10.2); Chloride 92 mmol/L (98-107); Estimated Creatinine Clearance 65 ml/min; Glucose 130 mg/dl (70-99); Magnesium 2.3 mg/dl (1.6-2.3); Potassium 4.7 mmol/L (3.5-5.1); Sodium 139 mmol/L (135-145); Total Bilirubin 0.3 mg/dl (0.2-1.3); Total Protein 5.5 g/dl (6.3-8.2); eGFR > 60.00
[2024-09-04 08:12] LABS: Carbon Dioxide 37 mmol/L (22-30)
--- NOTE | 2024-09-04 09:11 | RESPNOTE ---
At approx 0735 this morning found patient on 2L NC pulse ox was 88% pt complained of some shortness of breath, BBS very decreased (tight). Pt given nebulizer treatment with .63xopenex. Post nebulizer pt initially said she felt worse but then after
few minutes stated she felt better. BBS improved aeration. Post nebulizer pulse ox 87-88% increased oxygen to 3L pulse ox 91-92%. Pt complaining of a stuffed up nose, will ask physician to order ocean spray. Pt has been declining vest therapy, will
ask for acapella order. Pt's RN was made aware.
--- NOTE | 2024-09-04 09:22 | W.PN.PUL3 ---
Today's Communication / Plan
-
Continue with systemic steroids and wean as tolerated --> if doing well by tomorrow then can start prednisone taper starting at 60 mg and reduce by 10 mg every 4th day until off
Nasal spray, starting Flonase after discharge
BiPAP recommended but she is refusing � I will DC this now; advised to continue with her NIV at home once discharged and we will see her in the office for troubleshooting
Symbicort/Spiriva, and resume Trelegy upon discharge
Nebulized bronchodilators with Xopenex
Mucolytics with mucinex
Goal SpO2 88�95 with ambulatory pulse oximetry prior to discharge
Pulmonary service will continue to follow along while she remains hospitalized and we will arrange for outpatient follow-up
Assessment
-
Assessment: 68-year-old female active tobacco smoker with a past medical history of COPD on nebulized ohtuvayre and prn O2, Zenker's diverticulum, osteoarthritis, diverticulosis, insomnia, following nausea, hyperlipidemia and migraine headaches who
presents with worsening SOB x 2 days. Reportedly when EMS arrived her saturations with 50% on room air. She was given DuoNebs and brought here to the ER. At home she uses 2 L/min as needed. She did report she had had a runny nose with cold-like
symptoms for a few days [employer]. In the ER she was afebrile to 98.7 �F, pulse rate 100, breathing at 18 breaths minute, BP 159/85 and saturating 93% on 6 L/min nasal cannula. Labs showed leukocytosis to 15.7, Hb 15.1, serum bicarbonate level 35,
glucose 185, AST 47, troponin negative at <0.012, and COVID antigen negative. Flu A/B swab also negative. CXR showed hyperinflated lungs with small bilateral pleural effusions and linear scarring within the lower lungs. In the ER, patient was
given Decadron 10 mg, DuoNebs + Zofran and admitted to telemetry under the hospitalist. Patient has been continued on Solu-Medrol 40mg IV q12hr, with nebulized bronchodilators, however developed atrial tachycardia with rates as high as 230bpm and
shortness of breath worsened. Cardiology consulted. Pulmonary now consulted for additional management/recommendations.
Chronic conditions [employer]: Fibromyalgia, insomnia, osteoarthritis, diverticulosis, PMR, tobacco use disorder, Zenker's diverticulum, cervical stenosis, COPD on home O2 with 2 L/min used prn, hyperlipidemia, migraine headaches
Impression:
#Acute exacerbation of COPD
#Metabolic alkalosis, likely due to chronic hypercapnic respiratory failure
#Postnasal drip
#Subclinical hyperthyroidism (TSH: 0.35, free T4: 1.08)
#Small bilateral pleural effusions seen on CXR (09/01/2024)
#Chronic hypercapnic respite failure on nocturnal NIV
#History of very severe COPD with very severe gas exchange capacity defect (post�bronchodilator FEV1: 0.67 L / 30% predicted; DLco: 15% predicted via PFT on 10/02/2023)
#Osteoarthritis
#Migraine headaches
#Hyperlipidemia
Plan:
- Continue with systemic steroids and wean as she clinically improves
- Currently on Solu-Medrol 60 mg IV q8hr --> considering that she is stable, we will continue with steroid weaning and lower her Solu-Medrol to 40 mg IV q12hr tonight --> if by tomorow AM she remains stable, then can start prednisone taper,
beginning at 60mg and reducing by 10mg every 4th day until off
- Maintain euglycemia with goal BG >100 and <180 while on high-dose steroids
- Unfortunately we do not carry ensifentrine here; can resume this upon discharge; can consider using Daliresp while hospitalized instead
- Given her recent atrial tachycardia, continue Xopenex q6hr with Symbicort 160mcg + Spiriva Respimat; resume Trelegy upon discharge
- prn nebulized bronchodilators (xopenex) for breakthrough symptoms
- Currently on Doxy for a cough with possible acute bronchitis -->would Tx for total of 5-7 days then stop assuming she continues to clinically improve & remains afebrile x 48 hrs prior to stopping
- Given her elevated serum bicarbonate level, I checked a blood gas this morning and it shows stable chronic hypercapnia with pH 7.4, pCO2 69
- She does have a history of chronic hypercapnia and is on volume targeted PS mode NIV at night, with TV: 430, itime: 1 sec, 12 bpm with PEEP of 8 and min PS: 7 cmH2O
- Continue with BiPAP while here in the hospital - she is refusing (will stop this now)--> this will be discussed/managed/troubleshoot as an outpatient as she has been having difficulties with congestion after awakening from using her NIV and also
has been wearing her nasal cannula underneath her fullface mask
- Maintain SpO2 88-95% with supplemental O2 and wean as tolerated
- Check ambulatory pulse oximetry prior to discharge
- Start nasal ocean spray mist up to QID
- Can start flonase s/p discharge
- She has evidence of small bilateral pleural effusions on imaging with CXR from admission
- Echo performed on 09/02/2024 shows normal LV size and systolic function without regional WMA, with mild MR and normal RV size and function; normal PASP of 20-25 mmHg w/ trace TR
- No evidence of volume overload clinically; continue to monitor
- Incentive spirometer encouraged 10x per hour for at least 4 hrs a day
- Replete electrolytes with K>4, Mg>2
- Maintain euglycemia with goal BG >100 and <180
- DVT ppx: LMWH
Pulmonary service will continue to follow along. She already has a follow-up arranged for 11/11/[address] Lafleur, and this will be moved up given her current exacerbation.
Data:
CXR 09/01/2024:
Hyperinflated lungs suggesting COPD.
Small bilateral pleural effusions.
Linear scarring within the lower lungs.
Transthoracic echocardiogram 09/02/2024:
Normal biventricular size and systolic function without regional wall motion
abnormality.
Mild mitral regurgitation.
No prior study available for comparison.
Total time spent today was 37 minutes for this encounter. Time includes reviewing laboratory test/imaging results, reviewing pertinent medical records, obtaining and reviewing medical history, performing an appropriate exam, ordering medications,
tests and procedures. Time also includes documentation of this encounter, coordinating patient care and communicating with other healthcare professionals. Total time does not include separately billed tests performed on this date of service.
Subjective Data
-
Date of Service:
Date of Service: September 04, 2024
Chief Complaint: Pulmonary Follow Up
Subjective:
Patient seen and evaluated today at bedside. Currently on 3 L/min saturating 92%. Shortness of breath is similar to yesterday. She endorses postnasal drip with nasal congestion. Otherwise denies JURADO, chest pain, nausea, vomiting, fevers or chills.
Review of Systems
General: Other (Negative unless mentioned above)
Objective Data
Data Reviewed
Vital Signs / I&O / Oxygen:
Vital Signs
Temp Pulse Resp BP Pulse Ox
98.0 F 89 20 129/78 92
09/04/24 03:40 09/04/24 07:46 09/04/24 07:41 09/04/24 07:46 09/04/24 08:10
Intake and Output
09/03/24 09/04/24 09/05/24
06:59 06:59 06:59
Intake Total 240 / 240 900 / 900
Balance 240 / 240 900 / 900
SaO2 92
Nasal Cannula flow liters per 3
minute
Physical Exam
General: Respiratory Distress (negative), Comfortable, Chills (negative) and Sweats (negative)
HEENT: Normocephalic and Anicteric
Cardiovascular: S1-S2 and Peripheral Edema (negative)
Respiratory: Wheeze ([place] upon expiration bilaterally and middle top lung campos), Crackles (Bib[place]ilar), Rhonchi (negative), Non-Labored Respirations and Other (Diminished breath sounds bilaterally)
GI: Soft, Non Distended, Non Tender and Normal Bowel Sounds
Neurology: AO x 3 and Tremors (negative)
Skin: Warm, Dry, Cyanosis (negative) and Jaundice (negative)
Labs/Micro/Reports
Lab Data
09/04/24 06:50
09/04/24 06:50
--- NOTE | 2024-09-04 13:04 | W.PN.HOSP.TC ---
Today's Communication/Plan
-
iv steroids
standing nebs
Assessment / Plan
Assessment / Plan
Physical Exam
General: NAD
HEENT: Moist mucous membranes and PERRLA
Respiratory: Other (slight wheezing bilaterally)
Cardiac: S1/S2 and Regular Rhythm; No Murmur
GI: Soft, Non Tender, Non Distended and Normal Bowel Sounds
Musculoskeletal: No Clubbing, No Cyanosis and No Edema
Neuro: AO x 3
A/P: Patient is a 68y F with PMH significant for COPD and anxiety / depression who presents to ED complaining of worsening SOB and cold symptoms over the past 2 days.
AE-COPD
Acute Hypoxemic and Hypercapneic Respiratory Failure secondary to the above
- Admit for further evaluation and treatment.
- SpO2 in the 80s on supplemental oxygen.
- Patient has home O2 that she uses 'as needed' and BiPAP that she wears at night - she does not know the settings.
- methylprednisolone to 60 mg every 8 hours
- Switch nebulizers to Xopenex standing; hold on DuoNebs due to rapid atrial tachycardia
- Mucolytics.
- PO doxycycline given coarse breath sounds / cough. Hold usual azithromycin for now - resume on discharge.
- Pulmonary evaluation
#Rapid atrial tachycardia
� diltiazem ER
� Follow-up echocardiogram - no gross abnormalities
�TFTs WNL
-Cards on board
Fibromyalgia
PMR
- Stable.
- Continue current med regimen.
- Resume usual steroid dose at discharge as noted above.
Anxiety / Depression
- Stable. Continue usual outpatient medications.
DVT Prophylaxis: Lovenox
Code Status: Full
Total time spent on today's encounter was 51 minutes which included time spent in counseling the patient/family regarding diagnosis and treatment plan as listed above, goals of care, and symptom management. Case was discussed with nursing staff,
specialists, and care coordinators/case management. All labs and imaging personally reviewed by me. Remainder the time spent in detailed review of previous records, lab data, imaging, and other medical provider documentation.
Anticipated Discharge: 24 - 48 hours
Subjective/Interval History
-
Date of Service: September 04, 2024
Mild improvement in wheezing
Objective Data
-
Labs:
Laboratory Results
09/04/24
06:50
WBC 8.2
Hgb 14.2
Hct 42.0
Plt Count 244
Sodium 139
Potassium 4.7
Chloride 92 L
Carbon Dioxide 37 H
BUN 21 H
Creatinine 0.7
Glucose 130 H
Calcium 9.3
Total Bilirubin 0.3
AST 21
ALT 26
Alkaline Phosphatase 37 L
Vital Signs:
Vital Signs
Temp Pulse Resp BP Pulse Ox
98.7 F 91 16 129/78 90
09/04/24 11:44 09/04/24 11:44 09/04/24 11:44 09/04/24 07:46 09/04/24 11:44
I&O
09/03/24 09/04/24 09/05/24
06:59 06:59 06:59
Intake Total 240 / 240 900 / 900
Balance 240 / 240 900 / 900
Review of Systems
-
History Source: Patient
All other systems: Not reviewed unless documented
Data Reviewed
-
Diagnostic Radiology: Image personally visualized and interpreted and Report Reviewed by me
Labs: Labs Reviewed by me
[2024-09-04] MEDS: OCEAN, SALINE MIST 1 SPRAYS NASAL (13:47)
[2024-09-04] MEDS: TYLENOL 650 MG PO ×2 (16:22→22:28)
[2024-09-04] MEDS: LOVENOX 40 MG SC (16:23)
[2024-09-04] MEDS: ROBITUSSIN 100 MG PO ×2 (16:23→22:28)
[2024-09-04] MEDS: OCEAN, SALINE MIST 2 SPRAYS NASAL (19:48)
[2024-09-05] MEDS: SOLU-MEDROL PF 40 MG IV ×2 (01:53→14:20)
[2024-09-05] MEDS: XOPENEX 0.63 MG INHALANT SOLUTION INH ×4 (01:53→19:17)
[2024-09-05 06:28] LABS: Hematocrit 42.3 % (37.0-47.0); Hemoglobin 13.7 g/dL (12.0-16.0); Mean Corp Hgb Conc. 32.4 g/dL (33.0-37.0); Mean Corpuscular Hgb 31.1 pg (27.0-31.0); Mean Corpuscular Volume 95.9 fL (81.0-99.0); Platelet Count 232 10^3/uL (130-400); Red Blood Cell Count 4.41 10^6/uL (4.20-5.40); Red Cell Dist. Width 11.3 % (11.5-14.5); White Blood Cell Count 8.4 10^3/uL (4.8-10.8)
[2024-09-05 06:47] LABS: ALT (SGPT) 25 U/L (0-35); AST (SGOT) 21 U/L (14-36); Albumin 3.3 g/dl (3.5-5.0); Alkaline Phosphatase 34 U/L (38-126); Blood Urea Nitrogen 22 mg/dl (7-17); Calcium 9.1 mg/dl (8.4-10.2); Chloride 93 mmol/L (98-107); Estimated Creatinine Clearance 65 ml/min; Glucose 131 mg/dl (70-99); Magnesium 2.3 mg/dl (1.6-2.3); Potassium 4.5 mmol/L (3.5-5.1); Sodium 140 mmol/L (135-145); Total Bilirubin 0.3 mg/dl (0.2-1.3); Total Protein 5.4 g/dl (6.3-8.2); eGFR > 60.00
[2024-09-05 06:57] LABS: Carbon Dioxide 38 mmol/L (22-30)
[2024-09-05 07:24] VITALS: BP 104/57
[2024-09-05] MEDS: SYMBICORT 160/4.5 MCG INHALER 2 PUFF INH ×2 (07:31→19:17)
[2024-09-05] MEDS: SPIRIVA RESPIMAT 2.5 MCG 2 PUFF INH (07:31)
[2024-09-05] MEDS: VIBRAMYCIN 100 MG PO ×2 (07:45→20:05)
[2024-09-05] MEDS: PROTONIX 40 MG PO (07:45)
[2024-09-05] MEDS: MUCINEX 600 MG PO ×2 (07:46→20:05)
[2024-09-05] MEDS: CARDIZEM CD 120 MG PO (07:47)
--- NOTE | 2024-09-05 09:38 | W.PN.PUL3 ---
Today's Communication / Plan
-
Continue with systemic steroids and wean as tolerated --> keep on current IV steroid dose and once ready for DC, discharge home on prednisone taper starting at 60 mg and reduce by 10 mg every 4th day until off
NS nasal spray, starting Flonase after discharge
BiPAP recommended but she is refusing �advised to continue with her NIV at home once discharged and we will see her in the office for troubleshooting
Symbicort/Spiriva, and resume Trelegy upon discharge
Nebulized bronchodilators with Xopenex given her recent AT
Mucolytics with mucinex
Goal SpO2 88�95 and check ambulatory pulse oximetry prior to discharge
CXR tomorrow to assess for improvement in pleural effusions
Pulmonary service will continue to follow along while she remains hospitalized and we will arrange for outpatient follow-up
Assessment
-
Assessment: 68-year-old female active tobacco smoker with a past medical history of COPD on nebulized ohtuvayre and prn O2, Zenker's diverticulum, osteoarthritis, diverticulosis, insomnia, following nausea, hyperlipidemia and migraine headaches who
presents with worsening SOB x 2 days. Reportedly when EMS arrived her saturations with 50% on room air. She was given DuoNebs and brought here to the ER. At home she uses 2 L/min as needed. She did report she had had a runny nose with cold-like
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 In the ER she was afebrile to 98.7 �F, pulse rate 100, breathing at 18 breaths minute, BP 159/85 and saturating 93% on 6 L/min nasal cannula. Labs showed leukocytosis to 15.7, Hb 15.1, serum bicarbonate level 35,
glucose 185, AST 47, troponin negative at <0.012, and COVID antigen negative. Flu A/B swab also negative. CXR showed hyperinflated lungs with small bilateral pleural effusions and linear scarring within the lower lungs. In the ER, patient was
given Decadron 10 mg, DuoNebs + Zofran and admitted to telemetry under the hospitalist. Patient has been continued on Solu-Medrol 40mg IV q12hr, with nebulized bronchodilators, however developed atrial tachycardia with rates as high as 230bpm and
shortness of breath worsened. Cardiology consulted. Pulmonary now consulted for additional management/recommendations.
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
Impression:
#Acute exacerbation of COPD
#Metabolic alkalosis, likely due to chronic hypercapnic respiratory failure
#Postnasal drip
#Subclinical hyperthyroidism (TSH: 0.35, free T4: 1.08)
#Small bilateral pleural effusions seen on CXR (09/01/2024)
#Chronic hypercapnic respite failure on nocturnal NIV
#History of very severe COPD with very severe gas exchange capacity defect (post�bronchodilator FEV1: 0.67 L / 30% predicted; DLco: 15% predicted via PFT on 10/02/2023)
#Osteoarthritis
#Migraine headaches
#Hyperlipidemia
Plan:
- Continue with systemic steroids and wean as she clinically improves
- Currently on Solu-Medrol 60 mg IV q12hr s/p q8hr (changed to 40mg IV q12hr on 09/04 evening) --> considering she remains hypoxic with exertion and is still having subtle wheezing bilaterally, keep IV steroid dosing as is, and once she improves
then would DC home on prednisone taper, starting at 60 mg and reducing by 10mg every 4th day until off
- Maintain euglycemia with goal BG >100 and <180 while on high-dose steroids
- Unfortunately we do not carry ensifentrine here; can resume this upon discharge; will start Daliresp while hospitalized instead
- Given her recent atrial tachycardia, continue Xopenex q6hr with Symbicort 160mcg + Spiriva Respimat; resume Trelegy upon discharge
- prn nebulized bronchodilators (xopenex) for breakthrough symptoms
- Currently on Doxy for a cough with possible acute bronchitis -->would Tx for total of 5-7 days then stop assuming she continues to clinically improve & remains afebrile x 48 hrs prior to stopping
- Given her elevated serum bicarbonate level, I checked a blood gas on AM of 09/04 and it shows stable chronic hypercapnia with pH 7.4, pCO2 69
- She does have a history of chronic hypercapnia and is on volume targeted PS mode NIV at night, with TV: 430, itime: 1 sec, 12 bpm with PEEP of 8 and min PS: 7 cmH2O
- Continue with BiPAP while here in the hospital - she is refusing--> this will be discussed/managed/troubleshooted as an outpatient as she has been having difficulties with congestion after awakening from using her NIV and also has been wearing
her nasal cannula underneath her fullface mask
- Maintain SpO2 88-95% with supplemental O2 and wean as tolerated
- Check ambulatory pulse oximetry prior to discharge
- Continue nasal ocean spray mist up to QID
- Can start flonase s/p discharge
- She has evidence of small bilateral pleural effusions on imaging with CXR from admission
- Echo performed on 09/02/2024 shows normal LV size and systolic function without regional WMA, with mild MR and normal RV size and function; normal PASP of 20-25 mmHg w/ trace TR
- No evidence of volume overload clinically; continue to monitor
- Incentive spirometer encouraged 10x per hour for at least 4 hrs a day
- Replete electrolytes with K>4, Mg>2
- Maintain euglycemia with goal BG >100 and <180
- DVT ppx: LMWH
Pulmonary service will continue to follow along. She already has a follow-up arranged for 11/11/[address] Lafleur, and this will be moved up given her current exacerbation.
Data:
CXR 09/01/2024:
Hyperinflated lungs suggesting COPD.
Small bilateral pleural effusions.
Linear scarring within the lower lungs.
Transthoracic echocardiogram 09/02/2024:
Normal biventricular size and systolic function without regional wall motion
abnormality.
Mild mitral regurgitation.
No prior study available for comparison.
Total time spent today was 41 minutes for this encounter. Time includes reviewing laboratory test/imaging results, reviewing pertinent medical records, obtaining and reviewing medical history, performing an appropriate exam, ordering medications,
tests and procedures. Time also includes documentation of this encounter, coordinating patient care and communicating with other healthcare professionals. Total time does not include separately billed tests performed on this date of service.
Subjective Data
-
Date of Service:
Date of Service: September 05, 2024
Chief Complaint: Pulmonary Follow Up
Subjective:
Patient was seen and evaluated today at bedside. Patient's son, Eliud, at bedside and all questions were answered. She is currently on 3 L/min nasal cannula. She feels minimal improvement in shortness of breath. During ambulation today she
required up to 6 L/min nasal cannula with saturations only reaching 88%. She walked total of 150 feet. Saturations at rest on room air was 78%. She currently denies chest pain, JURADO, abdominal pain, nausea, fevers or chills.
Review of Systems
General: Other (Negative unless mentioned above)
Objective Data
Data Reviewed
Vital Signs / I&O / Oxygen:
Vital Signs
Temp Pulse Resp BP Pulse Ox
98.3 F 90 18 127/64 91
09/05/24 07:24 09/05/24 07:47 09/05/24 07:35 09/05/24 07:47 09/05/24 08:00
Intake and Output
09/04/24 09/05/24 09/06/24
06:59 06:59 06:59
Intake Total 900 / 900 680 / 680
Balance 900 / 900 680 / 680
SaO2 91
Nasal Cannula flow liters per 3
minute
Physical Exam
General: Respiratory Distress (negative), Comfortable, Chills (negative) and Sweats (negative)
HEENT: Normocephalic and Anicteric
Cardiovascular: S1-S2 and Peripheral Edema (negative)
Respiratory: Wheeze (Scurry upon expiration bilaterally in middle-upper lung campos), Crackles (negative), Rhonchi (negative), Non-Labored Respirations and Other (Diminished breath sounds bilaterally)
GI: Soft, Non Distended, Non Tender and Normal Bowel Sounds
Neurology: AO x 3 and Tremors (negative)
Skin: Warm, Dry, Cyanosis (negative) and Jaundice (negative)
Labs/Micro/Reports
Lab Data
09/05/24 06:15
09/05/24 06:15
[2024-09-05 15:46] VITALS: BP 130/73
--- NOTE | 2024-09-05 15:48 | CM ---
Reviewed chart, patient is functioning physically at baseline, still requiring acute care. Will go home when stable.
Plan: Case management will continue to follow and assist with discharge planning. Home when cleared.
[2024-09-05] MEDS: DALIRESP 500 MCG PO (17:49)
[2024-09-05] MEDS: LOVENOX 40 MG SC (17:50)
[2024-09-05] MEDS: OCEAN, SALINE MIST 2 SPRAYS NASAL ×2 (18:27→22:35)
[2024-09-05 19:36] VITALS: BP 110/76; BP 126/77; BP 135/71; PULSE 104; PULSE 116; PULSE 98
[2024-09-05 20:00] VITALS: BP 110/76; BP 126/77; BP 135/71; PULSE 104; PULSE 116; PULSE 98
[2024-09-05] MEDS: TYLENOL 650 MG PO (22:33)
[2024-09-05] MEDS: ROBITUSSIN 100 MG PO (22:34)
[2024-09-05] MEDS: MELATONIN 3 MG PO (22:35)
[2024-09-05 23:24] VITALS: BP 105/55
[2024-09-06] MEDS: SOLU-MEDROL PF 40 MG IV (02:13)
[2024-09-06] MEDS: XOPENEX 0.63 MG INHALANT SOLUTION INH ×3 (03:47→13:55)
[2024-09-06 07:00] VITALS: BP 119/77
[2024-09-06 07:06] LABS: Hematocrit 44.4 % (37.0-47.0); Hemoglobin 14.4 g/dL (12.0-16.0); Mean Corp Hgb Conc. 32.4 g/dL (33.0-37.0); Mean Corpuscular Hgb 31.4 pg (27.0-31.0); Mean Corpuscular Volume 96.9 fL (81.0-99.0); Platelet Count 241 10^3/uL (130-400); Red Blood Cell Count 4.58 10^6/uL (4.20-5.40); Red Cell Dist. Width 11.4 % (11.5-14.5); White Blood Cell Count 8.6 10^3/uL (4.8-10.8)
[2024-09-06 07:31] LABS: ALT (SGPT) 26 U/L (0-35); AST (SGOT) 23 U/L (14-36); Albumin 3.6 g/dl (3.5-5.0); Alkaline Phosphatase 33 U/L (38-126); Blood Urea Nitrogen 22 mg/dl (7-17); Calcium 9.3 mg/dl (8.4-10.2); Chloride 92 mmol/L (98-107); Estimated Creatinine Clearance 65 ml/min; Glucose 126 mg/dl (70-99); Magnesium 2.4 mg/dl (1.6-2.3); Potassium 4.5 mmol/L (3.5-5.1); Sodium 139 mmol/L (135-145); Total Bilirubin 0.4 mg/dl (0.2-1.3); Total Protein 5.7 g/dl (6.3-8.2); eGFR > 60.00
[2024-09-06 07:41] LABS: Carbon Dioxide 38 mmol/L (22-30)
[2024-09-06] MEDS: SPIRIVA RESPIMAT 2.5 MCG 2 PUFF INH (08:09)
[2024-09-06] MEDS: SYMBICORT 160/4.5 MCG INHALER 2 PUFF INH (08:09)
[2024-09-06] MEDS: MUCINEX 600 MG PO (08:26)
[2024-09-06] MEDS: VIBRAMYCIN 100 MG PO (08:26)
[2024-09-06] MEDS: PROTONIX 40 MG PO (08:27)
[2024-09-06] MEDS: CARDIZEM CD 120 MG PO (08:30)
[2024-09-06] MEDS: OCEAN, SALINE MIST 2 SPRAYS NASAL (08:38)
[2024-09-06] MEDS: DALIRESP 500 MCG PO (09:12)
[2024-09-06 10:55] VITALS: BP 118/71; BP 121/73; BP 122/71; PULSE 100; PULSE 94; PULSE 98
--- NOTE | 2024-09-06 12:52 | W.PN.HOSP.TC ---
Addendum entered and electronically signed by Luis Fernando Sheehan MD 09/07/24 15:46:
[id number]
Original Note:
Today's Communication/Plan
-
Diltiazem
Prednisone taper
Flonase, nasal spray
Follow-up PCP, pulmonary, cardiology outpatient
Assessment / Plan
Assessment / Plan
Physical Exam
General: NAD
HEENT: Moist mucous membranes and PERRLA
Respiratory: Other (slight wheezing bilaterally)
Cardiac: S1/S2 and Regular Rhythm; No Murmur
GI: Soft, Non Tender, Non Distended and Normal Bowel Sounds
Musculoskeletal: No Clubbing, No Cyanosis and No Edema
Neuro: AO x 3
A/P: Patient is a 68y F with PMH significant for COPD and anxiety / depression who presents to ED complaining of worsening SOB and cold symptoms over the past 2 days.
AE-COPD
Acute Hypoxemic and Hypercapneic Respiratory Failure secondary to the above
- Admit for further evaluation and treatment.
- SpO2 in the 80s on supplemental oxygen.
- Patient has home O2 that she uses 'as needed' and BiPAP that she wears at night - she does not know the settings.
- methylprednisolone to 60 mg every 8 hours�switch to prednisone taper with 60 mg x 4 days, drop by 10 mg every 4 days, until back to home dose of 5 mg daily
- NS nasal spray, starting Flonase
resume Trelegy upon discharge
- Mucolytics.
- PO doxycycline given coarse breath sounds / cough. Hold usual azithromycin for now - resume on discharge.
- Pulmonary evaluation
-Inc edgardo for atelectasis
#Rapid atrial tachycardia
� diltiazem ER
� Follow-up echocardiogram - no gross abnormalities
�TFTs WNL
-Cards on board - f/u outpatient
Fibromyalgia
PMR
- Stable.
- Continue current med regimen.
- Resume usual steroid dose at discharge as noted above.
Anxiety / Depression
- Stable. Continue usual outpatient medications.
DVT Prophylaxis: Lovenox
Code Status: Full
More than 30 minutes spent in discharge including
Final examination of the patient
Summarizing hospital stay
Instructions for continuing care to all relevant caregivers
Preparation of discharge records, prescriptions, and referral forms
Total time spent (36 in minutes):
Anticipated Discharge: Today
Subjective/Interval History
-
Date of Service: September 06, 2024
Respiratory symptoms improved, requiring only 3 L upon ambulation
Objective Data
-
Labs:
Laboratory Results
09/06/24
06:50
WBC 8.6
Hgb 14.4
Hct 44.4
Plt Count 241
Sodium 139
Potassium 4.5
Chloride 92 L
Carbon Dioxide 38 H
BUN 22 H
Creatinine 0.7
Glucose 126 H
Calcium 9.3
Total Bilirubin 0.4
AST 23
ALT 26
Alkaline Phosphatase 33 L
Vital Signs:
Vital Signs
Temp Pulse Resp BP Pulse Ox
98.4 F 94 16 119/77 91
09/06/24 07:00 09/06/24 08:30 09/06/24 08:15 09/06/24 08:30 09/06/24 08:15
I&O
09/05/24 09/06/24 09/07/24
06:59 06:59 06:59
Intake Total 680 / 680 480 / 480
Balance 680 / 680 480 / 480
Review of Systems
-
History Source: Patient
All other systems: Not reviewed unless documented
Data Reviewed
-
Diagnostic Radiology: Image personally visualized and interpreted and Report Reviewed by me
Labs: Labs Reviewed by me
--- NOTE | 2024-09-06 12:58 | W.DS.TRANS ---
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
-
Discharge Instructions:
Discharge Diagnosis/Procedures AE-COPD
Acute Hypoxemic and Hypercapneic Respiratory
Failure secondary to the above
Tachycardia
Diet Low Cholesterol,Low Fat
Activity As tolerated
Blood Work cbc
Instructions:
Stand-Alone Forms:
Changes to Home Medications: Yes
Discharge Medications:
DC Medications w/original date entered in [employer]
zolpidem 10 mg tablet 5 mg PO HSPRN PRN sleep 05/04/23
albuterol sulfate 90 mcg/actuation aerosol inhaler 2 puff inhalation R Q4HPRN PRN sob 08/20/23
therapeutic multivitamin 1 tab PO DAILY Supplement 08/20/23
azithromycin 250 mg tablet 250 mg PO DAILY 4 days #4 tabs 08/22/23
ensifentrine 3 mg/2.5 mL suspension for nebulization (Ohtuvayre) 2.5 ml inhalation BID COPD 09/01/24
fluticasone fur. 200 mcg-umeclid 62.5 mcg-vilant 25 mcg inhalat.powder (Trelegy Ellipta) 1 inh inhalation DAILY COPD 09/01/24
diltiazem HCl 120 mg capsule,extended release 24 hr 120 mg PO DAILY 30 days #30 caps 09/06/24
fluticasone propionate 50 mcg/actuation nasal spray,suspension (Flonase Allergy Relief) 1 spray intranasal BID #16 grams 09/06/24
pantoprazole 40 mg tablet,delayed release 40 mg PO DAILY #30 tabs 09/06/24
prednisone 10 mg tablet See Rx Instructions .Route .COMPLEX #85 tabs 09/06/24
prednisone 5 mg tablet 5 mg PO DAILY COPD #0 tabs 09/06/24
sodium chloride 0.65 % nasal spray aerosol (Saline Nasal) 1 spray intranasal BID PRN dry nasal passages #44 mL 09/06/24
Home Medication Changes
diltiazem HCl 120 mg capsule,extended release 24 hr 120 mg PO DAILY 30 days #30 caps 09/06/24
fluticasone propionate 50 mcg/actuation nasal spray,suspension (Flonase Allergy Relief) 1 spray intranasal BID #16 grams 09/06/24
pantoprazole 40 mg tablet,delayed release 40 mg PO DAILY #30 tabs 09/06/24
prednisone 10 mg tablet See Rx Instructions .Route .COMPLEX #85 tabs 09/06/24
prednisone 5 mg tablet 5 mg PO DAILY COPD #0 tabs 09/06/24
sodium chloride 0.65 % nasal spray aerosol (Saline Nasal) 1 spray intranasal BID PRN dry nasal passages #44 mL 09/06/24
Pending Results: No
== END 2024-09-06 14:06 | disposition home or self-care (01) | DRG 189 ==
LOC: 3 WEST ACU 04:33
PROVIDERS: Nurse Practitioner Family; ADMITTING PHYSICIAN Hospitalist; ATTENDING PHYSICIAN Internal Medicine; CONSULT PHYSICIAN Internal Medicine Cardiovascular Disease; CONSULT PHYSICIAN Internal Medicine Critical Care Medicine; EMERGENCY PHYSICIAN Emergency Medicine; FAMILY PHYSICIAN Student in an Organized Health Care Education/Training Program
DX: J96.01 Acute respiratory failure with hypoxia (principal); J44.1 Chronic obstructive pulmonary disease with (acute) exacerbation; I47.19 Other supraventricular tachycardia; J96.02 Acute respiratory failure with hypercapnia; G89.29 Other chronic pain; M48.02 Spinal stenosis, cervical region; M79.7 Fibromyalgia; Z99.81 Dependence on supplemental oxygen
CPT/HCPCS: 71045; 71046; 80048; 80053; 82805; 82962; 83735; 84439; 84443; 84484; 85025; 85027; 85610; 85730; 87502; 87811; 93005; 93306; 94640; 94669; 96374; 96375; 99291; J0153

== ENCOUNTER → 2024-09-20 10:16 | Outpatient (REF) | payer MEDICARE, SELFPAY ==
[2024-09-20 12:09] LABS: % Basophils 0.1 % (0-2); % Eosinophils 0.3 % (0-6); % Immature Granulocytes 0.7 % (0-0.5); % Lymphocytes 24.1 % (20.5-51.1); % Neutrophils 68.8 % (42.2-75.2); Absolute Immature Granulocytes 0.1 10^3/uL (0-0.05); Absolute Lymphocytes 2.9 10^3/uL (1.2-3.4); Absolute Monocytes 0.7 10^3/uL (0.1-0.6); Absolute Neutrophils 8.3 10^3/uL (1.4-6.5); Hematocrit 42.1 % (37.0-47.0); Hemoglobin 13.4 g/dL (12.0-16.0); Mean Corp Hgb Conc. 31.8 g/dL (33.0-37.0); Mean Corpuscular Hgb 30.9 pg (27.0-31.0); Mean Corpuscular Volume 97.2 fL (81.0-99.0); Nucleated Red Blood Cells % 0 %; Platelet Count 198 10^3/uL (130-400); Red Blood Cell Count 4.33 10^6/uL (4.20-5.40); Red Cell Dist. Width 11.9 % (11.5-14.5)
== END ==
LOC: REG 10:16
PROVIDERS: ATTENDING PHYSICIAN Student in an Organized Health Care Education/Training Program
DX: J44.9 Chronic obstructive pulmonary disease, unspecified (principal); J44.1 Chronic obstructive pulmonary disease with (acute) exacerbation
CPT/HCPCS: 36415; 85025

== ENCOUNTER → 2024-10-07 10:30 | Outpatient (REF) | payer MEDICARE, SELFPAY | LOC: WDC 10:30 | PROVIDERS: ATTENDING PHYSICIAN Student in an Organized Health Care Education/Training Program | DX: R92.8 Other abnormal and inconclusive findings on diagnostic imaging of breast (principal); R92.1 Mammographic calcification found on diagnostic imaging of breast | CPT/HCPCS: 77065 ==

== ENCOUNTER → 2024-10-14 06:18 | Outpatient (REF) | payer MEDICARE, SELFPAY ==
--- NOTE | 2024-10-14 09:14 | OID.BR.INTR ---
[facility] Breast Navigator - Initial
- -
Date of Contact: 10/14/24
Met with patient. Patient given written information on navigator services available at [facility]. Will follow up as needed per protocol.
== END ==
LOC: WDC 06:18
PROVIDERS: ATTENDING PHYSICIAN Student in an Organized Health Care Education/Training Program
DX: R92.1 Mammographic calcification found on diagnostic imaging of breast (principal)
CPT/HCPCS: 88305; 19081; 76098; 88341; 88360; A4648

== ENCOUNTER → 2024-10-28 10:45 | Outpatient (REF) | payer MEDICARE, SELFPAY | LOC: WDC 10:45 | PROVIDERS: ATTENDING PHYSICIAN Surgery; FAMILY PHYSICIAN Student in an Organized Health Care Education/Training Program | DX: R92.2 Inconclusive mammogram (principal); C50.411 Malignant neoplasm of upper-outer quadrant of right female breast | CPT/HCPCS: 76641 ==

== ENCOUNTER → 2024-11-07 16:58 | Outpatient (REF) | payer MEDICARE, SELFPAY ==
[2024-11-07 17:19] LABS: Urine Albumin 1+ (Neg - Trace); Urine Bilirubin Negative (Negative); Urine Character Slightly Cloudy (Clear); Urine Color Yellow; Urine Glucose Negative (Negative); Urine Ketone Negative (Negative); Urine Leukocyte 2+ (Negative); Urine Nitrite Negative (Negative); Urine Occult Blood 1+ (Negative); Urine Specific Gravity 1.015 (<1.030); Urine Urobilinogen Negative (Neg - 1+); Urine pH 6.5 (5.0-9.0)
[2024-11-07 18:01] LABS: Urine White Cell >100 /HPF (0-5)
== END ==
LOC: CLAB 16:58
PROVIDERS: ATTENDING PHYSICIAN Internal Medicine
DX: R30.0 Dysuria (principal)
CPT/HCPCS: 81003; 81015; 87086; 87147

== ENCOUNTER → 2024-11-12 08:46 | Outpatient (REF) | payer MEDICARE, SELFPAY | LOC: WDC 08:46 | PROVIDERS: ATTENDING PHYSICIAN Surgery | DX: C50.411 Malignant neoplasm of upper-outer quadrant of right female breast (principal) | CPT/HCPCS: 19285; 38792; 76942; A4648; A9541 ==

== ENCOUNTER 2024-11-13 06:52 | Day surgery (SDC) | payer MEDICARE, SELFPAY ==
[2024-11-13] VITALS (7 sets, daily range): BP systolic 97–116; BP diastolic 54–73; BMI 22.0
[2024-11-13] MEDS: TYLENOL 1000 MG PO (12:24)
[2024-11-13] MEDS: NORMOSOL-R/PLASMALYTE-A 1000 IV (12:40)
[2024-11-13] MEDS: VANCOCIN 200 IV (12:44)
[2024-11-13] MEDS: LOVENOX 40 MG SC (13:01)
--- NOTE | 2024-11-13 16:00 | W.IMMPOSTOP ---
Surgical Immed Post Op Note
-
Primary Surgeon: Funmilayo
Assisting Surgeon: None
Pre-op Diagnosis: Right breast ca
Post-op Diagnosis: Right breast ca
Procedure Performed: Right localized lumpectomy and sentinel node mapping and biopsy
Anesthesia Type: TIVA
Specimen / Cultures: Right lumpectomy, margins; sentinel nodes
Estimated Blood Loss: 6cc
Complications: None
Operative Findings: Reflectors and clip in specimen, 1/2 sentinel nodes pos for ca
--- NOTE | 2024-11-13 16:02 | OR.RPT ---
Operative Report
Operative Report
Pre-Op DX: Right breast ca
Post-Op DX: Right breast ca
Surgeon: Funmilayo
Procedure: Right localized lumpectomy and sentinel lymph node mapping and biopsy
The patient is a 69-year-old female who had image detected right breast carcinoma and presents now for breast conservation surgery. On the day prior to the procedure the patient presented to the [facility] center where 2 Philomena devops developer reflectors
were replaced to outline the appropriate area to be removed and technetium radiotracer was injected into the breast parenchyma. On the day of surgery, the patient presented to the same-day surgical services unit and was prepped. DVT and antibiotic
prophylaxis were provided. The patient was taken to the operating room and in the supine position TIVA anesthesia was delivered.
The right breast and axilla were prepped and draped in the usual sterile fashion. All tissues were anesthetized with 1% lidocaine plain. Attention was first turned to the axilla where a curvilinear incision was made inferior to the hairline
overlying the area of highest external gamma count. Dissection was carried down through clavipectoral fascia using the cautery and using the neoprobe gamma probe two sentinel node packets were identified and excised. Feeding vessels to the nodes
were controlled with 3-0 silk ties. One of the nodes was positive on frozen section analysis. Because the patient qualified for [id number] trial criteria, no further axillary sampling was warranted. Hemostasis was verified. Marcaine 0.5% plain was
instilled into all tissues and the wound was closed using simple interrupted 3-0 plain on deep and intermediate tissue; skin was closed using simple interrupted 3-0 Vicryl on subcutaneous tissue and a running subcuticular 4-0 Monocryl closed the
skin.
Then attention was turned next to the lumpectomy. The 2 Philomena reflectos had been sounded out and a curvilinear incision was made incorporating the area containing the 2 highest signals. Skin flaps were elevated with the cautery and a wide
lumpectomy was performed. Time out of body was noted and the specimen was oriented for the pathologist. Specimen radiography confirmed the presence of biopsy clip and 2 Philomena reflectors within it. Additional margins were harvested for permanent
analysis from the posterior, medial, superior, lateral, inferior, and anterior dimensions. These were oriented as well. Hemostasis was carefully maintained. Hemoclips were placed in the resection cavity as well as Surgicel. This wound was closed
in the same manner as the axilla but a few simple interrupted external sutures of 4-0 Monocryl were placed in the skin for extra support. Surgical glue and sterile compressive dressings were applied. All sponge needle and instrument counts were
correct and the patient was transferred to the recovery room in stable condition.
([id number])
[place] Node Bx Breast Cancer
[place] Node Bx Breast Cancer
Operation performed with curative intent: Yes
Tracer(s) to ID [place] Nodes in Non-Neoadjuvant setting: Radioactive Tracer
Tracer(s) to ID [place] Nodes in the Neoadjuvant Setting: N/A
All nodes at end of dye-filled Lymphatic Channel removed: N/A
All Significantly Radioactive Nodes were removed: Yes
All Palpably Suspicious Nodes were Removed: Yes
Bx Proven Pos Nodes Marked Prior to Chemo ID'd & Removed: N/A
== END 2024-11-13 17:10 | disposition home or self-care (01) ==
LOC: SDS 06:52
PROVIDERS: ATTENDING PHYSICIAN Surgery; FAMILY PHYSICIAN Student in an Organized Health Care Education/Training Program
DX: C77.3 Secondary and unspecified malignant neoplasm of axilla and upper limb lymph nodes (principal); Z17.0 Estrogen receptor positive status [ER+]
CPT/HCPCS: 38525; 19301; 38900; 88305; 88307; 88332; 76098; 88331; 88341; 88342; 88360; A4648

== ENCOUNTER 2024-12-23 06:09 | Day surgery (SDC) | payer MEDICARE, SELFPAY ==
[2024-12-23] VITALS (7 sets, daily range): BP systolic 70–126; BP diastolic 61–94
[2024-12-23] MEDS: NSS 1000 IV (06:20)
[2024-12-23] MEDS: VANCOCIN 200 IV (06:41)
[2024-12-23] MEDS: TYLENOL 1000 MG PO (06:42)
--- NOTE | 2024-12-23 08:32 | W.IMMPOSTOP ---
Surgical Immed Post Op Note
-
Primary Surgeon: Funmilayo
Assisting Surgeon: None
Pre-op Diagnosis: Right breast ca
Post-op Diagnosis: Right breast ca
Procedure Performed: Insertion left portacath
Anesthesia Type: TIVA
Specimen / Cultures: None
Estimated Blood Loss: 6cc
Complications: None
Operative Findings: None
--- NOTE | 2024-12-23 08:35 | OR.RPT ---
Operative Report
Operative Report
Operative Date: 12/23/24
Surgeon: Funmilayo
Pre-Op DX: right breast carcinoma
Post-Op DX: right breast carcinoma
Procedure: Insertion left portacath
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 She presents for Port-A-Cath insertion for the administration of adjuvant chemotherapy.
Patient presented to the same-day surgery suite where she was prepped. She verified site and procedure. DVT and antibiotic prophylaxis were provided. She was taken to the operating room and in Trendelenburg position with shoulder roll in place
intravenous sedation was delivered. The left chest and neck were prepped and draped in usual sterile fashion.
Tissues were anesthetized with 1% lidocaine plain via Seldinger technique the left subclavian vein was entered on the first attempt. Guidewire was passed through the needle and positioned in the superior vena cava was confirmed. The needle was
removed and the wire was securely attached to the drapes. Inferior to the exit site of the guidewire a subcutaneous port was fashioned sharply and with the cautery. A low-profile single-lumen port flushed with heparinized saline was placed in the
pocket. Catheter was securely attached to the port and transferred to the exit site of the guidewire and cut to a length of 19 cm using fluoroscopic guidance.
The vascular tract was dilated. Wire and dilator were removed and the catheter passed easily through the tear-away sheath which was removed. Good position of the tip in the superior vena cava was noted. The port aspirated and flushed well. The
patient was taken out of Trendelenburg position and Marcaine 0.5% plain was instilled into all tissues. The catheter was secured to subcutaneous tissue using simple interrupted 4-0 plain. Skin was closed using simple interrupted 4-0 plain in a
running subcuticular 4-0 Monocryl.
Surgical glue and sterile compressive dressing were applied. The patient was transferred to same-day surgery where a stat portable chest x-ray will be taken. All sponge needle and instrument counts were correct.
([id number])
== END 2024-12-23 09:40 | disposition home or self-care (01) ==
LOC: SDS 06:09
PROVIDERS: ATTENDING PHYSICIAN Surgery
DX: C50.911 Malignant neoplasm of unspecified site of right female breast (principal); Z45.2 Encounter for adjustment and management of vascular access device; Z17.1 Estrogen receptor negative status [ER-]
CPT/HCPCS: 36561; 71045; 76000; C1788

== ENCOUNTER 2025-01-23 14:27 | Outpatient (RCR) | payer MEDICARE, SELFPAY ==
[2024-12-29 13:32] LABS: % Basophils 0.4 % (0-2); % Eosinophils 0.3 % (0-6); % Immature Granulocytes 0.3 % (0-0.5); % Lymphocytes 10.7 % (20.5-51.1); % Monocytes 4.6 % (1.7-9.3); % Neutrophils 83.7 % (42.2-75.2); Absolute Basophils 0.1 10^3/uL (0-0.2); Absolute Lymphocytes 1.3 10^3/uL (1.2-3.4); Absolute Monocytes 0.6 10^3/uL (0.1-0.6); Absolute Neutrophils 10.4 10^3/uL (1.4-6.5); Hemoglobin 13.5 g/dL (12.0-16.0); Mean Corp Hgb Conc. 33.8 g/dL (33.0-37.0); Mean Corpuscular Hgb 31.6 pg (27.0-31.0); Mean Corpuscular Volume 93.7 fL (81.0-99.0); Mean Platelet Volume 8.4 fL (7.4-10.4); Platelet Count 273 10^3/uL (130-400); Red Blood Cell Count 4.27 10^6/uL (4.20-5.40); Red Cell Dist. Width 11.4 % (11.5-14.5); White Blood Cell Count 12.4 10^3/uL (4.8-10.8)
[2024-12-29 14:43] LABS: ALT (SGPT) 16 U/L (0-35); AST (SGOT) 18 U/L (14-36); Albumin 3.8 g/dl (3.5-5.0); Alkaline Phosphatase 48 U/L (38-126); Blood Urea Nitrogen 13 mg/dl (7-17); Calcium 9.6 mg/dl (8.4-10.2); Carbon Dioxide 32 mmol/L (22-30); Chloride 98 mmol/L (98-107); Glucose 147 mg/dl (70-99); Sodium 139 mmol/L (135-145); Total Bilirubin 0.4 mg/dl (0.2-1.3); Total Protein 5.9 g/dl (6.3-8.2); eGFR > 60.00
[2025-01-01 09:30] VITALS: BP 106/60
[2025-01-01 09:51] VITALS: BMI 22.5
[2025-01-01] MEDS: EMEND 150 MG IV (10:38)
[2025-01-01] MEDS: ALOXI 5 MG IV (11:18)
[2025-01-01] MEDS: DECADRON 51 MG IV (11:19)
[2025-01-01] MEDS: TAXOTERE 262.3 MG IV (11:50)
[2025-01-01] MEDS: CYCLOPHOSPHAMIDE 254.92 MG IV (13:01)
[2025-01-01 14:05] VITALS: BP 111/61
[2025-01-02 15:02] VITALS: BP 107/66
[2025-01-02 15:08] VITALS: BP 107/66
[2025-01-02] MEDS: FULPHILA 6 MG SC (15:20)
[2025-01-09 13:32] LABS: % Basophils 0.2 % (0-2); % Eosinophils 0.8 % (0-6); % Immature Granulocytes 18.1 % (0-0.5); % Lymphocytes 8.4 % (20.5-51.1); % Monocytes 12.4 % (1.7-9.3); % Neutrophils 60.1 % (42.2-75.2); Absolute Basophils 0.1 10^3/uL (0-0.2); Absolute Eosinophils 0.2 10^3/uL (0-0.7); Absolute Immature Granulocytes 3.8 10^3/uL (0-0.05); Absolute Lymphocytes 1.8 10^3/uL (1.2-3.4); Absolute Monocytes 2.6 10^3/uL (0.1-0.6); Absolute Neutrophils 12.4 10^3/uL (1.4-6.5); Hematocrit 41.1 % (37.0-47.0); Hemoglobin 13.7 g/dL (12.0-16.0); Mean Corp Hgb Conc. 33.3 g/dL (33.0-37.0); Mean Corpuscular Hgb 31.5 pg (27.0-31.0); Mean Corpuscular Volume 94.5 fL (81.0-99.0); Mean Platelet Volume 9.1 fL (7.4-10.4); Platelet Count 252 10^3/uL (130-400); Red Blood Cell Count 4.35 10^6/uL (4.20-5.40); Red Cell Dist. Width 11.6 % (11.5-14.5); White Blood Cell Count 20.7 10^3/uL (4.8-10.8)
[2025-01-09 15:00] LABS: ALT (SGPT) 18 U/L (0-35); AST (SGOT) 28 U/L (14-36); Albumin 4.1 g/dl (3.5-5.0); Alkaline Phosphatase 85 U/L (38-126); Blood Urea Nitrogen 7 mg/dl (7-17); Calcium 9.6 mg/dl (8.4-10.2); Carbon Dioxide 31 mmol/L (22-30); Chloride 96 mmol/L (98-107); Estimated Creatinine Clearance 75 ml/min; Glucose 159 mg/dl (70-99); Potassium 4.3 mmol/L (3.5-5.1); Sodium 137 mmol/L (135-145); Total Bilirubin 0.5 mg/dl (0.2-1.3); Total Protein 6.1 g/dl (6.3-8.2); eGFR > 60.00
--- NOTE | 2025-01-16 13:06 | SURV.CONR ---
Survivorship Consultation
- -
Met patient at bedside. Explained role and survivorship program. She is currently under the care of medical oncology and getting treated here and utilizing [facility]. She reports feeling well and tolerating cycle #1 well. My contact information was
provided and she was advised of different resources available to her. Will be available as needed.
[2025-01-21 10:53] LABS: % Basophils 0.5 % (0-2); % Eosinophils 0.1 % (0-6); % Lymphocytes 20.8 % (20.5-51.1); % Monocytes 9.6 % (1.7-9.3); Absolute Basophils 0.1 10^3/uL (0-0.2); Absolute Immature Granulocytes 0.2 10^3/uL (0-0.05); Absolute Lymphocytes 3.1 10^3/uL (1.2-3.4); Absolute Monocytes 1.4 10^3/uL (0.1-0.6); Hematocrit 42.5 % (37.0-47.0); Hemoglobin 13.8 g/dL (12.0-16.0); Mean Corp Hgb Conc. 32.5 g/dL (33.0-37.0); Mean Corpuscular Hgb 30.9 pg (27.0-31.0); Mean Corpuscular Volume 95.1 fL (81.0-99.0); Mean Platelet Volume 8.3 fL (7.4-10.4); Platelet Count 437 10^3/uL (130-400); Red Blood Cell Count 4.47 10^6/uL (4.20-5.40); Red Cell Dist. Width 12.3 % (11.5-14.5); White Blood Cell Count 14.7 10^3/uL (4.8-10.8)
[2025-01-21 12:16] LABS: ALT (SGPT) 18 U/L (0-35); AST (SGOT) 23 U/L (14-36); Albumin 4.4 g/dl (3.5-5.0); Alkaline Phosphatase 63 U/L (38-126); Blood Urea Nitrogen 8 mg/dl (7-17); Calcium 10.1 mg/dl (8.4-10.2); Carbon Dioxide 34 mmol/L (22-30); Chloride 101 mmol/L (98-107); Estimated Creatinine Clearance 75 ml/min; Glucose 96 mg/dl (70-99); Sodium 142 mmol/L (135-145); Total Bilirubin 0.5 mg/dl (0.2-1.3); Total Protein 6.4 g/dl (6.3-8.2); eGFR > 60.00
[2025-01-22 09:45] VITALS: BP 120/68
[2025-01-22 10:11] VITALS: BMI 22.0
[2025-01-22] MEDS: EMEND 150 MG IV (10:43)
[2025-01-22] MEDS: ALOXI 5 MG IV (11:20)
[2025-01-22] MEDS: DECADRON 51 MG IV (11:21)
[2025-01-22] MEDS: TAXOTERE 262.3 MG IV (11:57)
[2025-01-22] MEDS: CYCLOPHOSPHAMIDE 254.92 MG IV (13:11)
[2025-01-22 16:10] VITALS: BP 141/83
[2025-01-23 14:42] VITALS: BP 120/58
[2025-01-23] MEDS: FULPHILA 6 MG SC (14:47)
== END 2025-01-26 09:26 | disposition home or self-care (01) ==
LOC: OID 14:27
PROVIDERS: ATTENDING PHYSICIAN Internal Medicine Hematology & Oncology; FAMILY PHYSICIAN Student in an Organized Health Care Education/Training Program
DX: Z51.11 Encounter for antineoplastic chemotherapy (principal); C50.411 Malignant neoplasm of upper-outer quadrant of right female breast (principal); Z17.1 Estrogen receptor negative status [ER-]
CPT/HCPCS: 36415; 80053; 85025; 96367; 96372; 96375; 96413; 96417; J1453; J2469; J9073; J9171; Q5108

== ENCOUNTER → 2025-01-27 11:14 | Outpatient (REF) | payer MEDICARE, SELFPAY ==
[2025-01-27 17:20] LABS: Urine Albumin 1+ (Neg - Trace); Urine Bilirubin Negative (Negative); Urine Character Clear (Clear); Urine Glucose Negative (Negative); Urine Ketone Negative (Negative); Urine Leukocyte 3+ (Negative); Urine Nitrite Negative (Negative); Urine Occult Blood 1+ (Negative); Urine Specific Gravity 1.005 (<1.030); Urine Urobilinogen Negative (Neg - 1+)
[2025-01-27 17:31] LABS: Urine Color Straw
[2025-01-27 17:38] LABS: Urine Bacteria Many (Negative); Urine White Cell >100 /HPF (0-5)
== END ==
LOC: CLAB 11:14
PROVIDERS: ATTENDING PHYSICIAN Student in an Organized Health Care Education/Training Program
DX: R39.9 Unspecified symptoms and signs involving the genitourinary system (principal)
CPT/HCPCS: 81003; 81015; 87086; 87147

== ENCOUNTER 2025-02-19 12:54 | Outpatient (RCR) | payer MEDICARE, SELFPAY ==
[2025-01-30 14:55] LABS: Hematocrit 39.5 % (37.0-47.0); Hemoglobin 13.2 g/dL (12.0-16.0); Mean Corp Hgb Conc. 33.4 g/dL (33.0-37.0); Mean Corpuscular Hgb 31.4 pg (27.0-31.0); Mean Corpuscular Volume 93.8 fL (81.0-99.0); Mean Platelet Volume 9.4 fL (7.4-10.4); Platelet Count 216 10^3/uL (130-400); Red Blood Cell Count 4.21 10^6/uL (4.20-5.40); Red Cell Dist. Width 12.4 % (11.5-14.5); White Blood Cell Count 27.5 10^3/uL (4.8-10.8)
[2025-01-30 15:18] LABS: Absolute Neutrophils -Man Diff 19.8 10^3/uL (1.4-6.5); Band Neutrophils 8 % (0-3); Eosinophils 1 % (0-6); Lymphocytes 7 % (20-51); Metamyelocytes 4 % (-); Monocytes 10 % (2-9); Myelocytes 5 % (-); Normal RBC Morphology Yes; Platelets Checked Yes; Segmented Neutrophils 64 % (42-75); Total Cells Counted 100
[2025-01-30 16:13] LABS: ALT (SGPT) 21 U/L (0-35); AST (SGOT) 25 U/L (14-36); Albumin 3.6 g/dl (3.5-5.0); Alkaline Phosphatase 85 U/L (38-126); Blood Urea Nitrogen 6 mg/dl (7-17); Calcium 9.4 mg/dl (8.4-10.2); Carbon Dioxide 34 mmol/L (22-30); Chloride 101 mmol/L (98-107); Glucose 116 mg/dl (70-99); Potassium 4.2 mmol/L (3.5-5.1); Sodium 139 mmol/L (135-145); Total Bilirubin 0.3 mg/dl (0.2-1.3); Total Protein 5.6 g/dl (6.3-8.2); eGFR > 60.00
[2025-02-11 13:20] LABS: % Basophils 0.6 % (0-2); % Immature Granulocytes 0.5 % (0-0.5); % Lymphocytes 4.4 % (20.5-51.1); % Monocytes 3.5 % (1.7-9.3); Absolute Basophils 0.1 10^3/uL (0-0.2); Absolute Immature Granulocytes 0.1 10^3/uL (0-0.05); Absolute Lymphocytes 0.9 10^3/uL (1.2-3.4); Absolute Monocytes 0.7 10^3/uL (0.1-0.6); Absolute Neutrophils 18.8 10^3/uL (1.4-6.5); Hematocrit 38.4 % (37.0-47.0); Hemoglobin 12.7 g/dL (12.0-16.0); Mean Corp Hgb Conc. 33.1 g/dL (33.0-37.0); Mean Corpuscular Hgb 31.2 pg (27.0-31.0); Mean Corpuscular Volume 94.3 fL (81.0-99.0); Mean Platelet Volume 8.3 fL (7.4-10.4); Platelet Count 319 10^3/uL (130-400); Red Blood Cell Count 4.07 10^6/uL (4.20-5.40); Red Cell Dist. Width 12.7 % (11.5-14.5); White Blood Cell Count 20.6 10^3/uL (4.8-10.8)
[2025-02-11 14:03] LABS: ALT (SGPT) 15 U/L (0-35); AST (SGOT) 20 U/L (14-36); Albumin 3.8 g/dl (3.5-5.0); Alkaline Phosphatase 65 U/L (38-126); Blood Urea Nitrogen 11 mg/dl (7-17); Calcium 9.6 mg/dl (8.4-10.2); Carbon Dioxide 29 mmol/L (22-30); Chloride 102 mmol/L (98-107); Glucose 126 mg/dl (70-99); Potassium 4.3 mmol/L (3.5-5.1); Sodium 139 mmol/L (135-145); Total Bilirubin 0.5 mg/dl (0.2-1.3); eGFR > 60.00
[2025-02-12 09:46] VITALS: BP 121/60
[2025-02-12] MEDS: CATHFLO/ACTIVASE 2 MG IV (10:05)
[2025-02-12] MEDS: EMEND 150 MG IV (10:36)
[2025-02-12] MEDS: ALOXI 5 MG IV (10:36)
--- NOTE | 2025-02-12 11:11 | PTCARENOTE ---
0920Left Sub-q port accessed per protocol, flushes with slight resistance, no blood return noted. Pt stated this has been an ongoing problem with port. Repositioned patient, flushed port vigorously still no blood return. Order obtained for cath-flow
1005 Cath-flow instilled per protocol.
1030 Excellent blood return noted, cath flow removed as well as 10ml blood discard. Sub-q port flushes easily. Premedications stared as directed. Pt tolerated well.
[2025-02-12] MEDS: DECADRON 51 MG IV (11:16)
[2025-02-12] MEDS: TAXOTERE 262.3 MG IV (11:42)
[2025-02-12 11:50] VITALS: BP 89/50
[2025-02-12 12:00] VITALS: BP 90/54
[2025-02-12 12:30] VITALS: BP 105/60
[2025-02-12 12:50] VITALS: BP 105/61
[2025-02-12] MEDS: CYCLOPHOSPHAMIDE 254.92 MG IV (12:54)
[2025-02-13 14:30] VITALS: BP 102/50
[2025-02-13] MEDS: FULPHILA 6 MG SC (14:35)
[2025-02-19 14:02] LABS: % Basophils 0.4 % (0-2); % Eosinophils 1.7 % (0-6); % Immature Granulocytes 9.6 % (0-0.5); % Lymphocytes 12.1 % (20.5-51.1); % Neutrophils 58.2 % (42.2-75.2); Absolute Eosinophils 0.2 10^3/uL (0-0.7); Absolute Lymphocytes 1.3 10^3/uL (1.2-3.4); Absolute Monocytes 1.9 10^3/uL (0.1-0.6); Absolute Neutrophils 6.3 10^3/uL (1.4-6.5); Hematocrit 36.6 % (37.0-47.0); Hemoglobin 12.3 g/dL (12.0-16.0); Mean Corp Hgb Conc. 33.6 g/dL (33.0-37.0); Mean Corpuscular Hgb 31.4 pg (27.0-31.0); Mean Corpuscular Volume 93.4 fL (81.0-99.0); Mean Platelet Volume 9.7 fL (7.4-10.4); Nucleated Red Blood Cells % 0.3 %; Platelet Count 188 10^3/uL (130-400); Red Blood Cell Count 3.92 10^6/uL (4.20-5.40); Red Cell Dist. Width 13.2 % (11.5-14.5); White Blood Cell Count 10.8 10^3/uL (4.8-10.8)
== END 2025-02-25 23:59 | disposition home or self-care (01) ==
LOC: OID 12:54
PROVIDERS: ATTENDING PHYSICIAN Internal Medicine Hematology & Oncology; FAMILY PHYSICIAN Student in an Organized Health Care Education/Training Program
DX: Z51.11 Encounter for antineoplastic chemotherapy (principal); C50.411 Malignant neoplasm of upper-outer quadrant of right female breast; Z17.1 Estrogen receptor negative status [ER-]
CPT/HCPCS: 36415; 80053; 85025; 96367; 96372; 96375; 96413; 96417; J1453; J2469; J2997; J9073; J9171; Q5108

== ENCOUNTER 2025-03-19 13:17 | Outpatient (RCR) | payer MEDICARE, SELFPAY ==
[2025-03-02 13:31] LABS: % Basophils 0.2 % (0-2); % Immature Granulocytes 0.8 % (0-0.5); % Lymphocytes 4.6 % (20.5-51.1); % Monocytes 0.8 % (1.7-9.3); % Neutrophils 93.6 % (42.2-75.2); Absolute Immature Granulocytes 0.2 10^3/uL (0-0.05); Absolute Lymphocytes 0.9 10^3/uL (1.2-3.4); Absolute Monocytes 0.2 10^3/uL (0.1-0.6); Absolute Neutrophils 17.9 10^3/uL (1.4-6.5); Hematocrit 39.8 % (37.0-47.0); Hemoglobin 12.9 g/dL (12.0-16.0); Mean Corp Hgb Conc. 32.4 g/dL (33.0-37.0); Mean Corpuscular Hgb 31.7 pg (27.0-31.0); Mean Corpuscular Volume 97.8 fL (81.0-99.0); Mean Platelet Volume 8.3 fL (7.4-10.4); Platelet Count 294 10^3/uL (130-400); Red Blood Cell Count 4.07 10^6/uL (4.20-5.40); Red Cell Dist. Width 13.8 % (11.5-14.5); White Blood Cell Count 19.1 10^3/uL (4.8-10.8)
[2025-03-02 15:14] LABS: ALT (SGPT) 18 U/L (0-35); AST (SGOT) 22 U/L (14-36); Albumin 4.3 g/dl (3.5-5.0); Alkaline Phosphatase 53 U/L (38-126); Blood Urea Nitrogen 13 mg/dl (7-17); Calcium 9.3 mg/dl (8.4-10.2); Carbon Dioxide 28 mmol/L (22-30); Chloride 100 mmol/L (98-107); Glucose 173 mg/dl (70-99); Potassium 4.2 mmol/L (3.5-5.1); Sodium 141 mmol/L (135-145); Total Bilirubin 0.6 mg/dl (0.2-1.3); Total Protein 6.2 g/dl (6.3-8.2); eGFR > 60.00
[2025-03-05] VITALS (7 sets, daily range): BP systolic 76–108; BP diastolic 36–58
[2025-03-05] MEDS: CATHFLO/ACTIVASE 2 MG IV (09:52)
[2025-03-05] MEDS: EMEND 150 MG IV (10:42)
[2025-03-05] MEDS: DECADRON 51 MG IV (11:26)
[2025-03-05] MEDS: ALOXI 5 MG IV (11:26)
[2025-03-05] MEDS: TAXOTERE 262.3 MG IV (12:02)
[2025-03-05] MEDS: CYCLOPHOSPHAMIDE 254.92 MG IV (13:31)
[2025-03-06 15:16] VITALS: BP 120/62
[2025-03-06] MEDS: FULPHILA 6 MG SC (15:22)
[2025-03-12 13:32] LABS: % Basophils 0.4 % (0-2); % Eosinophils 0.7 % (0-6); % Immature Granulocytes 2.6 % (0-0.5); % Monocytes 13.3 % (1.7-9.3); Absolute Eosinophils 0.1 10^3/uL (0-0.7); Absolute Immature Granulocytes 0.2 10^3/uL (0-0.05); Absolute Lymphocytes 0.7 10^3/uL (1.2-3.4); Absolute Monocytes 1.1 10^3/uL (0.1-0.6); Hematocrit 36.5 % (37.0-47.0); Hemoglobin 11.9 g/dL (12.0-16.0); Mean Corp Hgb Conc. 32.6 g/dL (33.0-37.0); Mean Corpuscular Hgb 31.4 pg (27.0-31.0); Mean Corpuscular Volume 96.3 fL (81.0-99.0); Mean Platelet Volume 9.4 fL (7.4-10.4); Platelet Count 148 10^3/uL (130-400); Red Blood Cell Count 3.79 10^6/uL (4.20-5.40); Red Cell Dist. Width 13.8 % (11.5-14.5); White Blood Cell Count 8.1 10^3/uL (4.8-10.8)
[2025-03-19 13:47] LABS: % Basophils 0.3 % (0-2); % Immature Granulocytes 1.4 % (0-0.5); % Monocytes 3.1 % (1.7-9.3); % Neutrophils 91.2 % (42.2-75.2); Absolute Basophils 0.1 10^3/uL (0-0.2); Absolute Immature Granulocytes 0.3 10^3/uL (0-0.05); Absolute Lymphocytes 0.9 10^3/uL (1.2-3.4); Absolute Monocytes 0.7 10^3/uL (0.1-0.6); Absolute Neutrophils 20.8 10^3/uL (1.4-6.5); Hematocrit 38.8 % (37.0-47.0); Hemoglobin 12.4 g/dL (12.0-16.0); Mean Corpuscular Hgb 31.3 pg (27.0-31.0); Mean Platelet Volume 8.6 fL (7.4-10.4); Platelet Count 224 10^3/uL (130-400); Red Blood Cell Count 3.96 10^6/uL (4.20-5.40); Red Cell Dist. Width 14.3 % (11.5-14.5); White Blood Cell Count 22.8 10^3/uL (4.8-10.8)
[2025-03-19 16:06] LABS: ALT (SGPT) 17 U/L (0-35); AST (SGOT) 19 U/L (14-36); Albumin 4.1 g/dl (3.5-5.0); Alkaline Phosphatase 88 U/L (38-126); Blood Urea Nitrogen 15 mg/dl (7-17); Calcium 9.2 mg/dl (8.4-10.2); Carbon Dioxide 30 mmol/L (22-30); Chloride 104 mmol/L (98-107); Glucose 98 mg/dl (70-99); Potassium 4.3 mmol/L (3.5-5.1); Sodium 140 mmol/L (135-145); Total Bilirubin 0.6 mg/dl (0.2-1.3); Total Protein 6.1 g/dl (6.3-8.2); eGFR > 60.00
== END 2025-03-28 23:59 | disposition home or self-care (01) ==
LOC: OID 13:17
PROVIDERS: Nurse Practitioner Adult Health; Nurse Practitioner Primary Care; ATTENDING PHYSICIAN Internal Medicine Hematology & Oncology; FAMILY PHYSICIAN Student in an Organized Health Care Education/Training Program
DX: C50.411 Malignant neoplasm of upper-outer quadrant of right female breast (principal); Z51.11 Encounter for antineoplastic chemotherapy (principal); Z17.1 Estrogen receptor negative status [ER-]
CPT/HCPCS: 36415; 80053; 85025; 96365; 96366; 96367; 96372; 96375; 96413; 96417; J1453; J2469; J2997; J9073; J9171; Q5108

== ENCOUNTER 2025-04-16 14:10 | Outpatient (RCR) | payer MEDICARE, SELFPAY ==
[2025-04-16 14:39] VITALS: BP 90/61
[2025-04-16 14:58] LABS: % Basophils 0.2 % (0-2); % Immature Granulocytes 0.1 % (0-0.5); % Lymphocytes 3.1 % (20.5-51.1); % Monocytes 2.1 % (1.7-9.3); % Neutrophils 94.5 % (42.2-75.2); Absolute Lymphocytes 0.3 10^3/uL (1.2-3.4); Absolute Monocytes 0.2 10^3/uL (0.1-0.6); Absolute Neutrophils 9.4 10^3/uL (1.4-6.5); Hematocrit 38.2 % (37.0-47.0); Hemoglobin 12.5 g/dL (12.0-16.0); Mean Corp Hgb Conc. 32.7 g/dL (33.0-37.0); Mean Corpuscular Hgb 32.1 pg (27.0-31.0); Mean Corpuscular Volume 98.2 fL (81.0-99.0); Mean Platelet Volume 8.3 fL (7.4-10.4); Platelet Count 234 10^3/uL (130-400); Red Blood Cell Count 3.89 10^6/uL (4.20-5.40); Red Cell Dist. Width 12.3 % (11.5-14.5); White Blood Cell Count 9.9 10^3/uL (4.8-10.8)
[2025-04-16 15:50] LABS: ALT (SGPT) 16 U/L (0-35); AST (SGOT) 20 U/L (14-36); Albumin 4.1 g/dl (3.5-5.0); Alkaline Phosphatase 41 U/L (38-126); Blood Urea Nitrogen 14 mg/dl (7-17); Calcium 9.4 mg/dl (8.4-10.2); Carbon Dioxide 28 mmol/L (22-30); Chloride 102 mmol/L (98-107); Glucose 135 mg/dl (70-99); Sodium 134 mmol/L (135-145); Total Bilirubin 0.6 mg/dl (0.2-1.3); Total Protein 6.2 g/dl (6.3-8.2); eGFR > 60.00
== END 2025-04-17 08:50 | disposition home or self-care (01) ==
LOC: OID 14:10
PROVIDERS: ATTENDING PHYSICIAN Internal Medicine Hematology & Oncology; FAMILY PHYSICIAN Student in an Organized Health Care Education/Training Program
DX: C50.411 Malignant neoplasm of upper-outer quadrant of right female breast (principal); Z17.1 Estrogen receptor negative status [ER-]; Z51.11 Encounter for antineoplastic chemotherapy
CPT/HCPCS: 80053; 85025

== ENCOUNTER → 2025-06-05 10:16 | Outpatient (REF) | payer MEDICARE, SELFPAY | LOC: PAVMRI 10:16 | PROVIDERS: ATTENDING PHYSICIAN Physical Medicine & Rehabilitation; FAMILY PHYSICIAN Student in an Organized Health Care Education/Training Program | DX: M54.51 Vertebrogenic low back pain (principal) | CPT/HCPCS: 72148 ==

== ENCOUNTER 2025-06-18 14:22 | Outpatient (RCR) | payer MEDICARE, SELFPAY ==
[2025-06-18 14:30] VITALS: BP 124/81
[2025-06-18] MEDS: CATHFLO/ACTIVASE 2 MG IV (14:58)
--- NOTE | 2025-06-18 15:39 | PTCARENOTE ---
pt here for routine port flush and labs. Pt's port flushes easily, but with minimal blood return, despite repositioning and moving around. Cath=rhona instilled and after 30 minutes, no blood return noted, pt declined second dose, stating 'I'm
probably gonna get it taken out anyway.' Port flushed and de-accessed, and labs [place] peripherally. Pt discharged.
[2025-06-18 16:01] LABS: Hematocrit 41.0 % (37.0-47.0); Hemoglobin 13.7 g/dL (12.0-16.0); Mean Corp Hgb Conc. 33.4 g/dL (33.0-37.0); Mean Corpuscular Volume 94.0 fL (81.0-99.0); Nucleated Red Blood Cells % 0 %; Platelet Count 229 10^3/uL (130-400); Red Cell Dist. Width 11.6 % (11.5-14.5)
[2025-06-18 16:13] LABS: ALT (SGPT) 15 U/L (0-35); AST (SGOT) 17 U/L (14-36); Albumin 4.1 g/dl (3.5-5.0); Alkaline Phosphatase 37 U/L (38-126); Blood Urea Nitrogen 14 mg/dl (7-17); Calcium 9.9 mg/dl (8.4-10.2); Carbon Dioxide 32 mmol/L (22-30); Chloride 103 mmol/L (98-107); Glucose 124 mg/dl (70-99); Potassium 4.8 mmol/L (3.5-5.1); Sodium 137 mmol/L (135-145); Total Protein 6.1 g/dl (6.3-8.2); eGFR > 60.00
[2025-06-18 16:41] LABS: Vitamin D, 25-OH*** 18.0 ng/mL (30-80)
[2025-06-21 01:52] LABS: CA 27-29 16.6 U/mL (<=39.0)
== END 2025-06-19 10:17 | disposition home or self-care (01) ==
LOC: OID 14:22
PROVIDERS: ATTENDING PHYSICIAN Internal Medicine Hematology & Oncology; FAMILY PHYSICIAN Student in an Organized Health Care Education/Training Program
DX: C50.411 Malignant neoplasm of upper-outer quadrant of right female breast (principal); Z17.1 Estrogen receptor negative status [ER-]; Z51.11 Encounter for antineoplastic chemotherapy
CPT/HCPCS: 80053; 82306; 85025; 86300; 96374; 96523; J2997

== ENCOUNTER → 2025-06-24 14:00 | Outpatient (REF) | payer MEDICARE, SELFPAY | LOC: HWRAD 14:00 | PROVIDERS: ATTENDING PHYSICIAN Nurse Practitioner Family; FAMILY PHYSICIAN Student in an Organized Health Care Education/Training Program | DX: Z87.891 Personal history of nicotine dependence (principal) | CPT/HCPCS: 71271 ==

== ENCOUNTER → 2025-07-14 14:33 | Outpatient (REF) | payer MEDICARE, SELFPAY | LOC: RCS 14:33 | PROVIDERS: ATTENDING PHYSICIAN Internal Medicine; FAMILY PHYSICIAN Student in an Organized Health Care Education/Training Program | DX: J44.9 Chronic obstructive pulmonary disease, unspecified (principal) | CPT/HCPCS: 93005 ==

== ENCOUNTER → 2025-07-23 12:15 | Outpatient (REF) | payer MEDICARE, SELFPAY ==
[2025-07-23 12:44] VITALS: BP 113/72; BP_SYST 119
[2025-07-23 13:35] VITALS: BP 119/65
== END ==
LOC: RADI 12:15
PROVIDERS: ATTENDING PHYSICIAN Nurse Practitioner Adult Health; FAMILY PHYSICIAN Student in an Organized Health Care Education/Training Program
DX: Z45.2 Encounter for adjustment and management of vascular access device (principal); C50.411 Malignant neoplasm of upper-outer quadrant of right female breast
CPT/HCPCS: 36590; 77001

== ENCOUNTER 2025-08-18 09:00 | Outpatient (RCR) | payer MEDICARE, SELFPAY | END 2025-08-18 23:59 | disposition home or self-care (01) | LOC: PURB 09:00 | PROVIDERS: ATTENDING PHYSICIAN Internal Medicine; FAMILY PHYSICIAN Student in an Organized Health Care Education/Training Program | DX: J44.9 Chronic obstructive pulmonary disease, unspecified (principal) | CPT/HCPCS: G0237 ==

== ENCOUNTER → 2025-08-31 12:58 | Outpatient (REF) | payer MEDICARE, SELFPAY | LOC: WDC 12:58 | PROVIDERS: ATTENDING PHYSICIAN Family Medicine Geriatric Medicine; FAMILY PHYSICIAN Student in an Organized Health Care Education/Training Program | DX: Z12.31 Encounter for screening mammogram for malignant neoplasm of breast (principal) | CPT/HCPCS: 77063; 77067 ==

== ENCOUNTER 2025-09-01 19:21 | Inpatient (IN) | payer MEDICARE, SELFPAY ==
[2025-09-01] VITALS (9 sets, daily range): BP systolic 99–136; BP diastolic 56–78; BMI 24.0; BMI 21.4
--- NOTE | 2025-09-01 17:02 | ED.GENMED ---
History of Present Illness
General
Chief Complaint: Breathing Problem
Time Seen by Provider: 09/01/25 17:02
History of Present Illness
History of Present Illness:
FOCUSED PAST MEDICAL HISTORY
- COPD, smoking till August 2024
REVIEW OF OLD RECORDS
- The patient was admitted for COPD exacerbation in August 2024
Note:
CHIEF COMPLAINT(S)
- Difficulty breathing and need for higher dose prednisone due to chronic obstructive pulmonary disease (COPD) exacerbation.
HISTORY OF PRESENT ILLNESS
The patient is a 69-year-old female with a known history of chronic obstructive pulmonary disease (COPD) presenting to the emergency department with worsening respiratory symptoms. The patient reports a recent exacerbation of COPD, similar to
previous episodes, necessitating previous hospital admissions for high-dose intravenous steroids and respiratory treatments. Approximately two weeks ago, the patient was prescribed a prednisone taper by her primary care doctor without an office
visit, with doses of 40 mg for three days followed by 30 mg for another three days. She is currently taking 10 mg. Although she normally does not require regular oxygen use at home, she possesses constant access to oxygen and mentions using 1 to 2
liters when necessary, particularly while seated. The patient also reports a recent urinary tract infection (UTI), for which she received antibiotic treatment. She communicated with her primary care provider the day before, who advised her to visit
the emergency department to potentially receive higher doses of prednisone.
The patient experiences mild conversational dyspnea and presents as alert and oriented with significantly decreased breath sounds and scant wheezing observed upon examination. These symptoms align with her previous COPD exacerbations, and her
primary care physician has recommended admission for further management.
CHRONIC MEDICAL CONDITIONS SIGNIFICANTLY AFFECTING CARE
- Chronic obstructive pulmonary disease (COPD).
MEDICATIONS
- Prednisone taper (current dosage: 10 mg).
- Recent antibiotics for urinary tract infection.
REVIEW OF SYSTEMS
- Respiratory: Decreased breath sounds and scant wheezing.
- Genitourinary: Recent symptoms of dysuria and increased urinary frequency.
PHYSICAL EXAM
General: Alert, no acute distress. But some mild conversational dyspnea is noted
Skin: Warm, dry.
Head: Normocephalic, atraumatic.
Neck: Supple, trachea midline.
Eye Ears, nose, mouth, and throat: Oral mucosa moist.
Cardiovascular: Normal peripheral perfusion, No edema.
Respiratory: Mild conversational dyspnea, markedly decreased breath sounds with scant wheezing.
Gastrointestinal: Abdomen nondistended.
Back: Normal range of motion, Normal alignment.
Musculoskeletal: Normal ROM, normal strength.
Neurological: Alert and oriented to person, place, time, and situation, No focal neurological deficit observed.
Psychiatric: Cooperative, appropriate mood & affect.
PROBLEM LIST
Acute:
- COPD exacerbation.
- Recent urinary tract infection.
Chronic:
- Chronic obstructive pulmonary disease (COPD).
PLAN
- Conduct bloodwork and chest X-ray to assess current respiratory status.
- Administer breathing treatments and initiate intravenous steroids as needed.
- Consider hospital admission based on response to initial treatments and the recommendation from the patients primary care provider.
DIFFERENTIAL DIAGNOSIS
The Differential Diagnosis includes, in no particular order and is not limited to:
1. COPD exacerbation
2. Pneumonia
3. Acute bronchitis
4. Congestive heart failure exacerbation
5. Pulmonary embolism
6. Asthma exacerbation
7. Viral respiratory infection
8. Acute respiratory distress syndrome
9. Pneumothorax
10. Decompensated heart failure
Disposition:
SUMMARY OF ENCOUNTER
The patient, a 69-year-old female with a known history of chronic obstructive pulmonary disease (COPD), presented to the emergency department with worsening respiratory symptoms consistent with a COPD exacerbation. She had been on a prednisone taper
prescribed two weeks prior. In the ED, she received a breathing treatment, and a chest x-ray was performed which did not reveal any significant findings such as pneumonia. The patients oxygen saturation was stable at 95% on 1 liter per minute of
oxygen, though she typically does not require oxygen while at rest or asleep and uses a BiPAP machine at night.
DISPOSITION
Admit.
ASSESSMENT
Based on the evaluation, the primary assessment is a COPD exacerbation. Despite outpatient oral steroids, the symptoms persisted, warranting the consideration for intravenous steroids and further management in the hospital setting.
MANAGEMENT OF THE PATIENTS CARE WAS DISCUSSED WITH
The case was discussed with the hospitalist team, who is to evaluate the patient for inpatient admission to manage the exacerbation with intravenous treatments.
INDEPENDENT REVIEW OF LABS AND INTERPRETATION OF TESTS
My independent interpretation of the chest x-ray indicates no significant findings of pneumonia, aligning with a primary assessment of COPD exacerbation.
MEDICATION RECONCILIATION
The patient continues on a prednisone taper, currently at 10 mg as an outpatient regimen for the COPD exacerbation.
MEDICAL DECISION MAKING
- Number and Complexity of Problems Addressed: Chronic conditions affecting care include chronic obstructive pulmonary disease (COPD) and recent urinary tract infection. Differential diagnosis includes COPD exacerbation, pneumonia, acute bronchitis,
congestive heart failure exacerbation, pulmonary embolism, asthma exacerbation, viral respiratory infection, acute respiratory distress syndrome, pneumothorax, and decompensated heart failure.
- Data:
Category 1: My independent interpretation of the chest x-ray shows no evidence of pneumonia or other acute findings, supporting the assessment of COPD exacerbation.
Category 3: Discussion of management with the hospitalist team took place, deciding on hospital admission for intravenous steroid treatment.
- Risk: Prescription drug management involved with continued prednisone use. Decision to admit for further care due to the risk of progression if not managed intensively in the hospital setting.
DIAGNOSIS
- Chronic obstructive pulmonary disease (COPD) exacerbation (ICD-10: J44.1)
This patient is failing outpatient management with oral steroids and she has improved in the past with IV steroids will admit for IV steroids. She has significant decreased breath sounds and was given 1 DuoNeb. She states that albuterol has led to
significant tachycardia and did have atrial tachycardia in the past. She felt improved just with 1 DuoNeb.
RADIOLOGY
- Chest x-ray shows hyperaeration
EKG
- Sinus 100, normal axis, nonspecific ST abnormality no significant change from 07/14/2025
LABS
- BNP 25, bicarb 32, white count 12.3 with patient has been on steroids
Past History
Past History
ED Past Medical History: COPD, Fibromyalgia and Other (Fibromyalgia, chronic neck and back pain, Osteoarthritis)
ED Past Surgical History:
Social History
Tobacco: Smoker
Alcohol: Occasional
Drug: None
Personal:
Living: with family
Family History
Family History: Other
Phy Exam
Physical Exam
Physical Exam:
See HPI
Scores
Heart Failure Risk
Heart Failure Risk Score: Not Applicable
Course
Orders/Labs/Results
Orders:
Orders
09/01/25 14:23
Electrocardiogram (*1) Urgent
Reason for Study: Tachycardia
EKG- Treatment ONCE
09/01/25 17:08
Albuterol Sulfate [Ventolin Nebules] 7.5 mg INH R NOW STA
Dexamethasone Sod Phosphate [Decadron] 10 mg IV NOW STA
09/01/25 17:09
CR Chest - 2 Views Urgent
Comment:
Reason For Exam: sob suspect copd
09/01/25 17:18
Complete Blood Count/With Diff Urgent
Comprehensive Metabolic Panel Urgent
NT-proBNP Urgent
09/01/25 17:22
Ipratropium/Albuterol Sulfate [Duoneb] 3 ml INH R NOW STA
09/01/25 19:00
Admit/Transfer Patient As Directed
Co-Sign Provider:
Level of Care: Inpatient admission
Assign to:: Medical/Surgical
Physician / Group: George Harden
Diagnosis: Acute exacerbation of chronic obstructive pulmonary disease (COPD)
Reason for Hospitalization: Acute exacerbation of chronic obstructive pulmonary disease (COPD)
Expected length of stay greater than two midnights?: Yes
ELOS- Estimated Length of Stay in days: 3
I certify the patient meets the requirements for IP care: Yes
09/01/25 19:01
PRN Pain Medication Management As Directed
May give lesser potent ordered pain med per pt: Yes
preference::
Protocol:: Medication orders for pain may be administered in a
manner that supports deferring to patient preference
when the pt is:
- Requesting an ordered lesser potent pain medication.
Least to most potent pain medications are defined
as: acetaminophen < NSAID < tramadol < opioids
(morphine, oxycodone, hydromorphone).
- Requesting a lesser dose of the same medication IF
ORDERED.
- Requesting a less intrusive route of administration
if both routes are prescribed by the provider (PO <
IV).
09/01/25 19:03
Code Status As Directed
Resuscitation Status: Full Code
09/01/25 19:16
COVID-19 Antigen Routine
Source: Nasal Swab
Influenza A+B Rapid Molecular Routine
SHENG Source: Nasal Swab
Specimen Description:
Abnormal Lab Results
09/01/25
17:18
WBC 12.3 H 10^3/uL
(4.8-10.8)
MCH 31.9 H pg
(27.0-31.0)
Abs Immat Gran (auto) 0.1 H 10^3/uL
(0-0.05)
Absolute Neuts (auto) 10.7 H 10^3/uL
(1.4-6.5)
Absolute Lymphs (auto) 0.9 L 10^3/uL
(1.2-3.4)
Immature Gran % 0.7 H %
(0-0.5)
Neutrophils % 87.6 H %
(42.2-75.2)
Lymphocytes % 7.3 L %
(20.5-51.1)
Carbon Dioxide 32 H mmol/L
(22-30)
Glucose 125 H mg/dl
(70-99)
09/01/25 17:18
09/01/25 17:18
Vital Signs
Initial and Last Documented VS:
Initial Vital Signs
Temp Pulse Resp BP Pulse Ox
36.6 C 111 18 121/73 92
09/01/25 14:22 09/01/25 14:22 09/01/25 14:22 09/01/25 14:22 09/01/25 14:22
Last Documented Vital Signs
Temp Pulse Resp BP Pulse Ox
36.6 C 87 14 99/63 93
09/01/25 14:22 09/01/25 20:30 09/01/25 20:30 09/01/25 20:00 09/01/25 20:30
*Pulse Oximetry
SaO2: 92
Oxygen Mode of Delivery: Room air
Patient hypoxic: yes (Patient does have oxygen at home and is currently on 2 L/min)
*Critical Care Note
Total Time (30-74mins, 75-104mins- exclusive of procedures): Not Applicable
ED Attending Note
-
Portions of this chart may have been created with voice recognition software.� Occasional wrong word or��sound alike� substitutions may have occurred due to the inherent limitations of voice recognition software.
Discharge Plan
Departure
Patient Disposition: Admit
Date of Disposition: 09/01/25
Time of Disposition: 18:03
Presentation/result/management discussed w/ accepting MD/DO: Hospitalist
Discharge Problem:
Acute exacerbation of chronic obstructive pulmonary disease (COPD)
Interventions
Interventions:
*Risk Screen - Suicide Last Done: 09/01/25 14:23
*General Assessment Last Done: 09/01/25 17:14
*Neglect/Abuse Screening Last Done: 09/01/25 14:23
*ED- Fall Risk Assessment Last Done: 09/01/25 17:14
*ED COVID-19 Vaccine History Last Done: 09/01/25 17:14
*ED Influenza Vaccine History Last Done: 09/01/25 17:14
ED- Cardiac Assessment Last Done: 09/01/25 17:14
ED- Pulmonary Assessment Last Done: 09/01/25 17:14
[2025-09-01] MEDS: DECADRON 10 MG IV (17:29)
[2025-09-01] MEDS: DUONEB 3 ML INH (17:34)
[2025-09-01 17:40] LABS: Hematocrit 40.8 % (37.0-47.0); Hemoglobin 13.9 g/dL (12.0-16.0); Mean Corp Hgb Conc. 34.1 g/dL (33.0-37.0); Mean Corpuscular Volume 93.6 fL (81.0-99.0); Nucleated Red Blood Cells % 0 %; Platelet Count 296 10^3/uL (130-400); Red Cell Dist. Width 12.1 % (11.5-14.5)
[2025-09-01 17:55] LABS: ALT (SGPT) 19 U/L (0-35); AST (SGOT) 25 U/L (14-36); Albumin 4.5 g/dl (3.5-5.0); Alkaline Phosphatase 39 U/L (38-126); Blood Urea Nitrogen 9 mg/dl (7-17); Calcium 9.5 mg/dl (8.4-10.2); Carbon Dioxide 32 mmol/L (22-30); Chloride 98 mmol/L (98-107); Estimated Creatinine Clearance 65 ml/min; Glucose 125 mg/dl (70-99); Potassium 4.8 mmol/L (3.5-5.1); Sodium 137 mmol/L (135-145); Total Protein 6.8 g/dl (6.3-8.2); eGFR > 60.00
--- NOTE | 2025-09-01 18:09 | HPS.HSE ---
Addendum entered and electronically signed by George Harden MD 09/01/25 21:16:
This is an addendum to the H&P written by Shayy Gibbons on 09/01/25. �Patient seen and examined independently with [employer].
69-year-old female�past medical history of COPD, fibromyalgia, polymyalgia rheumatica, migraines, anxiety/depression, diverticulosis, osteoarthritis, hypercholesterolemia, right-sided breast cancer, presenting with increased exertional dyspnea for 2
to 3 weeks hypoxia to upper 80s. �Productive cough.
Recently finished antibiotic for UTI 2 days ago.
Vital signs show hypoxia at 88%. �On 2 L oxygen. �Bilateral wheezing on examination.
Labs show leukocytosis.
Chest x-ray shows appears normal, report pending.
Patient with acute COPD exacerbation. �DuoNebs, dexamethasone. �Check COVID and flu. �Continue chronic azithromycin.
Original Note:
Family Physician
-
Family Physician: Emilia Alcala MD
Chief Complaint
-
increased shortness of braeth and hypoxia
History of Present Illness
Patient is a 69-year-old female with past medical history significant for COPD, fibromyalgia, polymyalgia rheumatica, anxiety / depression and Hx Breast Cancer right IDC who presented to [facility] ED for evaluation of increased shortness of breath and
hypoxia. Patient reports that she has been having increased shortness of breath with exertion and hypoxia at home for the past 2-3 weeks. She states she has also had intermittent productive cough. Her primary care provider had prescribed prednisone
taper and she continued with symptoms so they recommended she go to ED for evaluation. She also notes she just finished antibiotics for UTI. Denies fever, chills, chest pain, nausea, vomiting, constipation or diarrhea.
Medical History
Past Medical History
Past Medical History: Reports Other
Additional Past Medical History:
COPD
Fibromyalgia
Polymyalgia Rheumatica
Migraine Headaches
Anxiety / Depression
Diverticulosis
Osteoarthritis
Hypercholesterolemia
Hx Breast Cancer right IDC
Past Surgical History: Reports Other
Additional Past Surgical History:
Nose Surgery
Breast Biopsy (benign)
D&C
Cataracts
Zencker's Diverticulectomy
LPS- diagnostic
stereotactic Right breast biopsy 10/14/24
Right localized lumpectomy SLN mapping and biopsy 11/13/24
Social History
Tobacco: Former Smoker (quit 1 year ago > 50 pack years total use.)
Alcohol: Occasional
Drug: None
Family History
Family History: Not pertinent
Allergies / Home Medications
Allergies reflects when Allergies were last updated in [facility].
Home Medications with original date entered in [employer]
Allergy/Medication List:
Allergies
Allergy/AdvReac Type Severity Reaction Status Date / Time
amoxicillin Allergy Anaphylaxis Verified 06/18/25 14:43
Home Medications
zolpidem 10 mg tablet 5 - 10 mg PO HSPRN PRN sleep 05/04/23
albuterol sulfate 90 mcg/actuation aerosol inhaler 2 puff inhalation R Q4HPRN PRN sob 08/20/23
ensifentrine 3 mg/2.5 mL suspension for nebulization (Ohtuvayre) 2.5 ml inhalation BID COPD 09/01/24
fluticasone fur. 200 mcg-umeclid 62.5 mcg-vilant 25 mcg inhalat.powder (Trelegy Ellipta) 1 inh inhalation DAILY COPD 09/01/24
oxycodone-acetaminophen 5 mg-325 mg tablet 1 tab PO PRN PRN pain 11/12/24
Vitamin D3 1 dose PO DAILY 12/22/24
azithromycin 250 mg tablet (Zithromax) 250 mg PO DAILY 01/01/25
prednisone 5 mg tablet 10 mg PO DAILY 01/01/25
morphine 15 mg tablet,extended release 15 mg PO Q8H PRN Pain 01/02/25
diltiazem HCl 120 mg capsule,24 hr,extended release 120 mg PO DAILY 09/01/25
guaifenesin 600 mg tablet, extended release 12 hr (Mucinex) 1,200 mg PO BID 09/01/25
Review of Systems
-
History Source: Patient
Constitutional: Denies Fever or Chills
EENT: Denies Sore Throat
Respiratory: Reports Cough (productive cough ) and Trouble Breathing (exertional dyspnea )
Cardiac: Denies Chest Pain, Diaphoresis, Palpitations or Syncope
Abdomen/GI: Denies Abdominal Pain, Nausea, Vomiting or Diarrhea
: Denies Dysuria, Frequency or Urgency
Musculoskeletal: Denies Joint Pain
Skin: Denies Rash
Neurological: Denies Dizzy, Headache, Weakness or Numbness
Endocrine: Denies Polyuria or Polydipsia
Physical Exam
Vital Signs
Vital Signs
Temp Pulse Resp BP Pulse Ox
97.9 F 98 24 110/70 93
09/01/25 14:22 09/01/25 17:15 09/01/25 17:15 09/01/25 17:00 09/01/25 17:15
Physical Exam
General: Well Developed, Well Nourished, Comfortable and Conversant
HEENT: NormoCephalic, Moist mucous membranes, PERRLA, Nose Appears Normal and Ears Appear Normal
Respiratory: Wheezes, Non Labored Respirations and Decreased Breath Sounds
Cardiac: S1/S2 and Regular Rhythm; No Murmur
GI: Soft, Non Tender, Non Distended and Normal Bowel Sounds
Musculoskeletal: No Clubbing, No Cyanosis and No Edema
Skin: Warm and IV/Catheter Site
Neuro: Awake and AO x 3
Psych: Calm and Intact Judgment/Insight
Laboratory Results
-
09/01/25 17:18
09/01/25 17:18
Laboratory Results
Total Bilirubin 0.3 mg/dl (0.2-1.3) 09/01/25 17:18
AST 25 U/L (14-36) 09/01/25 17:18
ALT 19 U/L (0-35) 09/01/25 17:18
Alkaline Phosphatase 39 U/L (38-126) 09/01/25 17:18
Data Reviewed
-
Medical Tests (Nuc Med, Echo, EKG etc): Report Reviewed by me (EKG: NORMAL SINUS RHYTHM LOW VOLTAGE QRS)
Lab Data: Labs Reviewed by me (WBC 12.3, neut 87.6, )
Impression/Plan
-
IMPRESSION/PLAN:
#COPD exacerbation
exertional dyspnea with increased O2 need
using PRN home O2 with all movement for 2 weeks
felt better at beginning of prednisone taper then symptoms returned
WBC 12.3, neut 87.6
EKG: NORMAL SINUS RHYTHM
LOW VOLTAGE QRS
CXR: pending report
Influenza: pending
Covid: pending
- Admit to
- DuoNeb QID and PRN
- dexamethasone 4mg q8
- continue albuterol PRN, azithromycin, guaifenesin, Ohtuvayre and Trelegy
- hold PO prednisone
#Hx Breast Cancer right IDC
follows with [facility] Dr. Bae
s/p chemo and radiation
Code status: full code
DVT prophylaxis: lovenox sq
[2025-09-01 22:15] LABS: COVID-19 Antigen Negative (Negative)
[2025-09-02] MEDS: DUONEB 3 ML INH (00:06)
[2025-09-02] MEDS: DECADRON 4 MG IV ×4 (00:28→23:16)
[2025-09-02] MEDS: PERCOCET 5/325 1 TABLET PO ×4 (00:29→23:15)
[2025-09-02] MEDS: MUCINEX 1200 MG PO ×3 (00:29→19:57)
[2025-09-02] MEDS: AMBIEN 5 MG PO ×2 (00:29→23:15)
[2025-09-02] MEDS: TAMIFLU 75 MG PO ×3 (00:59→19:57)
[2025-09-02 01:30] VITALS: PULSE 2; PULSE 94
[2025-09-02 05:09] VITALS: BMI 21.4
[2025-09-02 06:19] LABS: Hematocrit 37.5 % (37.0-47.0); Hemoglobin 12.6 g/dL (12.0-16.0); Mean Corp Hgb Conc. 33.6 g/dL (33.0-37.0); Mean Corpuscular Volume 94.7 fL (81.0-99.0); Nucleated Red Blood Cells % 0 %; Platelet Count 260 10^3/uL (130-400); Red Cell Dist. Width 11.9 % (11.5-14.5)
[2025-09-02 06:35] LABS: Blood Urea Nitrogen 13 mg/dl (7-17); Calcium 9.3 mg/dl (8.4-10.2); Carbon Dioxide 32 mmol/L (22-30); Chloride 100 mmol/L (98-107); Estimated Creatinine Clearance 75 ml/min; Glucose 149 mg/dl (70-99); Potassium 5.0 mmol/L (3.5-5.1); Sodium 136 mmol/L (135-145); eGFR > 60.00
[2025-09-02 07:25] VITALS: BP 108/66
[2025-09-02] MEDS: NON-FORMULARY ITEM 2.5 ML INH ×2 (08:03→19:32)
[2025-09-02] MEDS: DUONEB INH ×5 (08:03→19:34)
[2025-09-02] MEDS: NON-FORMULARY ITEM 1 INH INH (08:04)
[2025-09-02] MEDS: CARDIZEM CD 120 MG PO (08:45)
[2025-09-02] MEDS: ZITHROMAX 250 MG PO (08:46)
[2025-09-02 15:15] VITALS: BP 125/68
--- NOTE | 2025-09-02 16:47 | CM ---
Patient seen at bedside with physicians on . Patient states that she lives alone in a one story home. Patient has a BIPAP and home O2 concentrator from her . Patient states the BIPAP is from [employer]. Patient for home O2 assessment
tomorrow. Patient has been driving and uses the [facility] [address] and her PCP is Dr. Taylor. Patient plan is for discharge home with VN; pending assessment with O2. CM will consider options for VN. CM will continue to follow for discharge planning
needs.
Plan; home with VN; watch for home O2 needs.
--- NOTE | 2025-09-02 19:21 | W.PN.HOSP.TC ---
Addendum entered and electronically signed by Joi Banerjee MD 09/02/25 20:28:
I saw and evaluated the patient independently. I reviewed and discussed the resident�s note and agree with findings and plan as documented by Dr. Lamar.
GENERAL: well developed, well nourished, female in no apparent distress
HEENT: NC/AT--2L O2 NC in place
HEART: regular rate and rhythm, +S1, +S2
LUNGS : clear to auscultation bilaterally--no wheezes, decreased BS bilaterally
ABDOM: soft, nontender, nondistended, + bowel sounds
EXT: no cyanosis, clubbing, or edema
NEUROLOGIC: grossly intact
Acute COPD exacerbation with acute hypoxemic resp insufficiency triggered by influenza positive--wean O2 to off--wean steroids, cont nebs--tamiflu--consult pulm--cont Azithromycin, Guaifenesin, Ohtuvayre and Trelegy --may need home O2 assessment
Hx Breast Cancer right IDC--follows with [facility] Dr. Bae--s/p chemo and radiation
Code status-- full code
DVT proph-- lovenox
Original Note:
Today's Communication/Plan
-
Continue with
-DuoNeb
-Dexamethasone
-Albuterol, Azithromycin, Guaifenesin, Ohtuvayre and Trelegy
-Treat Flu with tamiflu and the COPD will resolve as well
Monitor labs.
Pulm consult ordered
Neck brace ordered
Assessment / Plan
Assessment / Plan
Impression:
69 year old female with PMH of COPD, Fibromyalgia, PMR, Migraines, Anxiety/Depression, Diverticulosis, OA, HLD, R-sided breast cancer, presenting with increased exertional dyspnea for 2-3 weeks hypoxia to upper 80's. Patient has a productive cough
and just recently finished abx for a UTI 2 days ago. She is having AECOPD. She has been put on Duonebs, Dexamethasone, and Azithromycin. Covid test came back negative while Flu test came back positive. The flu most likely caused her AECOPD.
Plan:
#COPD exacerbation
exertional dyspnea with increased O2 need
Using PRN home O2 with all movement for 2 weeks
EKG: NSR
CXR: Consistent with mild COPD and emphysema
Continue:
-DuoNeb
-Dexamethasone
-Albuterol, Azithromycin, Guaifenesin, Ohtuvayre and Trelegy
-Treat Flu with tamiflu and the COPD will resolve as well.
#Hx Breast Cancer right IDC
follows with Alf Bae
s/p chemo and radiation
Code status: full code
DVT prophylaxis: lovenox sq
Anticipated Discharge: 24 - 48 hours
Subjective/Interval History
-
Date of Service: September 02, 2025
Patient is a 69-year-old female with past medical history significant for COPD, fibromyalgia, polymyalgia rheumatica, anxiety / depression and Hx Breast Cancer right IDC who presented to [facility] ED for evaluation of increased shortness of breath and
hypoxia. Patient reports that she has been having increased shortness of breath with exertion and hypoxia at home for the past 2-3 weeks. She states she has also had intermittent productive cough. Her primary care provider had prescribed prednisone
taper and she continued with symptoms so they recommended she go to ED for evaluation. She also notes she just finished antibiotics for UTI. Denies fever, chills, chest pain, nausea, vomiting, constipation or diarrhea.
Objective Data
-
Vital Signs:
Vital Signs
Temp Pulse Resp BP Pulse Ox
98.2 F 98 18 125/68 96
09/02/25 15:15 09/02/25 15:15 09/02/25 15:15 09/02/25 15:15 09/02/25 15:15
I&O
09/01/25 09/02/25 09/03/25
06:59 06:59 06:59
Intake Total 240 / 240 1200 / 1200
Balance 240 / 240 1200 / 1200
CXR (09/01/2025): IMPRESSION:
1. Moderate bilateral lung hyperinflation consistent with chronic obstructive pulmonary disease and mild to moderate centrilobular emphysema.
2. No radiographic evidence for pneumonia or pleural effusion.
3. Severe calcific atherosclerotic plaque in the coronary arteries.
Review of Systems
-
History Source: Patient
Respiratory: Reports Trouble Breathing
Physical Exam
-
General: Well Developed, Well Nourished, No Apparent Distress and Comfortable
HEENT: Normocephalic and Atraumatic
Respiratory: Wheezes and Decreased Breath Sounds
Cardiac: Regular Rhythm and S1/S2
Breast: Deferred by me
GI: Soft, Nontender, Nondistended and Normal Bowel Sounds
Skin: Warm and IV Access / Catheter Site
Neuro: AO x 3
Psych: Calm and Intact Judgement/Insight
Data Reviewed
-
Diagnostic Radiology: Report Reviewed by me and Discussed with Physician
Labs: Labs Reviewed by me and Discussed with Physician
[2025-09-02 23:16] VITALS: PULSE 101; PULSE 2
[2025-09-02 23:26] VITALS: BP 130/94
[2025-09-03 07:29] LABS: Hematocrit 34.8 % (37.0-47.0); Hemoglobin 11.6 g/dL (12.0-16.0); Mean Corp Hgb Conc. 33.3 g/dL (33.0-37.0); Mean Corpuscular Volume 92.8 fL (81.0-99.0); Nucleated Red Blood Cells % 0 %; Platelet Count 242 10^3/uL (130-400); Red Cell Dist. Width 12.1 % (11.5-14.5)
[2025-09-03 07:33] VITALS: BP 93/53
[2025-09-03] MEDS: NON-FORMULARY ITEM 2.5 ML INH ×2 (07:36→19:46)
[2025-09-03] MEDS: NON-FORMULARY ITEM 1 INH INH (07:37)
[2025-09-03] MEDS: DUONEB INH ×2 (07:37→11:34)
[2025-09-03 07:59] LABS: ALT (SGPT) 18 U/L (0-35); AST (SGOT) 20 U/L (14-36); Albumin 3.6 g/dl (3.5-5.0); Alkaline Phosphatase 30 U/L (38-126); Blood Urea Nitrogen 16 mg/dl (7-17); Calcium 9.3 mg/dl (8.4-10.2); Carbon Dioxide 31 mmol/L (22-30); Chloride 100 mmol/L (98-107); Estimated Creatinine Clearance 75 ml/min; Glucose 132 mg/dl (70-99); Magnesium 2.2 mg/dl (1.6-2.3); Potassium 4.6 mmol/L (3.5-5.1); Sodium 134 mmol/L (135-145); Total Protein 5.6 g/dl (6.3-8.2); eGFR > 60.00
[2025-09-03] MEDS: DECADRON 4 MG IV ×2 (08:37→15:05)
[2025-09-03] MEDS: MUCINEX 1200 MG PO ×2 (08:38→20:56)
[2025-09-03] MEDS: ZITHROMAX 250 MG PO (08:38)
[2025-09-03] MEDS: TAMIFLU 75 MG PO ×2 (08:38→20:56)
[2025-09-03] MEDS: PERCOCET 5/325 1 TABLET PO ×2 (08:42→23:04)
[2025-09-03] MEDS: CARDIZEM CD PO (08:46)
[2025-09-03 08:47] VITALS: BP 99/57
[2025-09-03] MEDS: DUONEB 3 ML INH (09:09)
--- NOTE | 2025-09-03 10:31 | CON.PUL ---
Consultation
Consultation Request
Date/Time Consultation Requested: 09/03/2025
Date/Time Consultation Performed: 09/03/2024
Requesting Provider: Dr. Banerjee
Performing Provider: Dr. Felix Cheung
Reason for Consultation: Acute exacerbation of COPD
Medical History
-
Chief Complaint: Worsening SOB
History of Present Illness:
-
69-year-old female active tobacco smoker with a past medical history of COPD on Chronic macrolide therapy, Trelegy and nebulized ohtuvayre and prn O2, Zenker's diverticulum, osteoarthritis, polymyalgia rheumatica, fibromyalgia, diverticulosis,
insomnia, following nausea, hyperlipidemia and migraine headaches.
Presents to the emergency room complaining of increased exertional dyspnea for the last 2 to 3 weeks, hypoxemia in the high 80s.
Productive cough.
Denies hemoptysis or significant fevers.
Recently completed antibiotic course for UTI.
She was found to be 88% on 2 L nasal cannula.
Patient found to have influenza B positive.
-
Of note, patient follows with us in the [facility] office, last visit on 08/05/2024 with MUKESH Grider. Previously seen by Dr. Martinez. She is managed on Trelegy 200mcg for very severe COPD with albuterol twice a day. Also on chronic Zithromax
daily and has required prednisone taper on a monthly basis for recurrent flares. She did start pulmonary rehab but only completed half the program. She had tried Breztri in the past but this worsened her cough.
-
Follows in the office with Dr. Niya Lunsford.
Past Medical History
Past Medical History: Other (Above as per HPI)
Past Surgical History: Other (Above as per HPI)
Social History
Tobacco: Former Smoker (Smoked 4-5 cigarettes a day with 93-babu-dkgj history (she reports 0.5 PPD x 50 years)
Alcohol: Occasional
Drug: None
Personal: ( about 2 years ago from a combination of heart disease/COPD/bladder cancer)
Family History
Family History: CAD (Mother: of an NV at age 63), Cancer (Paternal first cousin: Ovarian cancer; father: Prostate cancer) and Other (Father: History of CVA ( at age 90 from this))
Allergies / Home Medications
Allergies
Allergy/AdvReac Type Severity Reaction Status Date / Time
amoxicillin Allergy Anaphylaxis Verified 06/18/25 14:43
Home Medications
�Medication �Instructions �Recorded �Confirmed �Last Taken �Type
zolpidem 10 mg tablet 5 - 10 mg PO HSPRN PRN sleep 05/04/23 09/01/25 09/01/25 History
albuterol sulfate 90 mcg/actuation 2 puff inhalation R Q4HPRN PRN sob 08/20/23 09/01/25 09/01/25 History
aerosol inhaler
ensifentrine 3 mg/2.5 mL 2.5 ml inhalation BID COPD 09/01/24 09/01/25 09/01/25 History
suspension for nebulization
(Ohtuvayre)
fluticasone fur. 200 mcg-umeclid 1 inh inhalation DAILY COPD 09/01/24 09/01/25 09/01/25 History
62.5 mcg-vilant 25 mcg
inhalat.powder (Trelegy Ellipta)
oxycodone-acetaminophen 5 mg-325 1 tab PO PRN PRN pain 11/12/24 09/01/25 09/01/25 History
mg tablet
Vitamin D3 1 dose PO DAILY 12/22/24 09/01/25 09/01/25 History
azithromycin 250 mg tablet 250 mg PO DAILY 01/01/25 09/01/25 09/01/25 History
(Zithromax)
prednisone 5 mg tablet 10 mg PO DAILY 01/01/25 09/01/25 09/01/25 History
morphine 15 mg tablet,extended 15 mg PO Q8H PRN Pain 01/02/25 09/01/25 09/01/25 History
release
diltiazem HCl 120 mg capsule,24 120 mg PO DAILY 09/01/25 09/01/25 09/01/25 History
hr,extended release
guaifenesin 600 mg tablet, 1,200 mg PO BID 09/01/25 09/01/25 09/01/25 History
extended release 12 hr (Mucinex)
Review of Systems
Vitals / Labs / Diagnostic Testing
Vital Signs
Temp Pulse Resp BP Pulse Ox
97.9 F 65 18 99/57 94
09/03/25 07:33 09/03/25 08:47 09/03/25 07:41 09/03/25 08:47 09/03/25 09:57
Lab Data
09/03/25 07:17
09/03/25 07:17
Microbiology
09/01/25 21:55 Nasal Swab Influenza Types A & B (CATRACHO) - Final
Influenza B Positive, NAAT
Diagnostic Testing:
Physical Exam
-
HEENT: Normocephalic
Cardiovascular: S1/S2
Respiratory: Wheeze (Expiratory wheezing on exam.) and Non-Labored Respirations
GI: Soft and Non Distended
Neurology: Awake, Alert, AO x 3 and No Motor Deficits
Skin: Warm
General: Comfortable
Assessment
-
73-year-old woman with history of COPD, chronic hypoxemic and hypercapnic respiratory failure-admitted with 2 weeks worth of shortness of breath, increased phlegm production.
Chest x-ray was clear. She was found to be mildly hypoxemic on room air which is new for her.
She was found to be flu B+.
I was consulted for management of COPD in the setting of severe/advanced COPD
Acute exacerbation of COPD-triggered by influenza
Chest x-ray 09/01/2025: Reviewed, showed hyperinflation. No evidence for infiltrate
Acute respiratory insufficiency secondary to above.
Influenza B+ 09/01/2025
Conditions present prior admission:
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
ABG 07/22/2024: 7.39/54/54
Fibromyalgia
Polymyalgia rheumatica-chronic prednisone therapy 10 mg
Migraine headaches
Anxiety/depression
Diverticulosis
Polymyalgia rheumatica
Hypercholesterolemia
History of breast cancer on the right-status postlumpectomy 11/13/2024
Right breast biopsy 09/2024
Zenker diverticulectomy
Assessment and plan:
COPD exacerbation likely triggered by influenza.
No x-ray suggestion of pneumonia.
-
Agree with current management including:
IV dexamethasone
DuoNebs 4 times a day
Hold inhalers while on nebulizers.
Okay to continue daily azithromycin for anti-inflammatory properties
Tamiflu complete total of 5 days
Monitor for bacterial superinfection
-
Can consider in the outpatient setting interleukin inhibitor/such as Dupixent or Nucala.
Previously patient had peripheral eosinophilia but with chronic steroids now down to 0.
Can consider weaning off prednisone in the outpatient setting and rechecking CBC.
Will defer to Dr. Lunsford.
-
Continue oxygen supplementation to maintain pulse ox above 88%. Usually not on supplemental oxygen with exertion.
Currently oxygen has been weaned off on room air.
Encourage incentive spirometry
Increase activity as able
Isolation per protocol
-
Last appoint 06/15/2025: Maximal medical therapy. Trelegy/chronic prednisone 10 mg/low-dose macrolide therapy for anti-inflammatory properties/Ohtuvayre/vest therapy which she is not using frequently.
Completed pulmonary rehabilitation.
Noninvasive mechanical ventilation at night intermittently for chronic hypercapnia.
Last walking test without exertional oxygen requirements.
Last low-dose radiation CAT scan without lung nodules.
-
Patient has an appointment with Dr. Niya Lunsford 10/20/2025.
-
Will follow
-
Still mildly bronchospastic, would keep for additional 24 hours and transition to prednisone tomorrow if clinically improved.
[2025-09-03] MEDS: VIBRAMYCIN 100 MG PO ×2 (13:47→20:56)
[2025-09-03 15:00] VITALS: BP 120/73
--- NOTE | 2025-09-03 19:06 | W.PN.HOSP.TC ---
Addendum entered and electronically signed by Joi Banerjee MD 09/03/25 19:20:
I saw and evaluated the patient independently. I reviewed and discussed the resident�s note and agree with findings and plan as documented by Dr. Lamar.
GENERAL: well developed, well nourished, female in no apparent distress
HEENT: NC/AT--2L O2 NC in place
HEART: regular rate and rhythm, +S1, +S2
LUNGS : clear to auscultation bilaterally--no wheezes, decreased BS bilaterally
ABDOM: soft, nontender, nondistended, + bowel sounds
EXT: no cyanosis, clubbing, or edema
NEUROLOGIC: grossly intact
Patient is in need of oxygen on exertion due to pulse oximetry of 91% on room air at rest; 86% on room air with exertion. Patient was placed on 1L O2 via nasal cannula with improvement. Oxygen will help to improve hypoxemia. Patient is mobile within
the home. Albuterol therapy has been discussed and is ineffective in treating hypoxemia-related symptoms. Oxygen will improve the patient's symptoms.
Acute COPD exacerbation with acute hypoxemic resp insufficiency triggered by influenza positive--wean O2 to off, qualifies for home O2 with exertion--wean steroids, cont nebs--tamiflu--apprec pulm--cont Azithromycin, Guaifenesin, Ohtuvayre and
Trelegy
Staph epi UTI--as per outpt PCP--resistant to Bactrim--starting doxy per sensitivities
Hx Breast Cancer right IDC--follows with [facility] Dr. Bae--s/p chemo and radiation
Code status-- full code
DVT proph-- lovenox
hopeful d/c tomorrow
Original Note:
Today's Communication/Plan
-
Patient is doing better but still wheezing --will keep for one more day --possible discharge tomorrow
As per her PCP Dr. Hughes, patients OP urine culture came back positive for Staph Epi -- Doxycyline 100 mg Q12hr ordered.
Nasal spray was ordered PRN to treat nasal dryness and blood when patient is blowing her nose.
Assessment / Plan
Assessment / Plan
Impression:
69 year old female with PMH of COPD, Fibromyalgia, PMR, Migraines, Anxiety/Depression, Diverticulosis, OA, HLD, R-sided breast cancer, presenting with increased exertional dyspnea for 2-3 weeks hypoxia to upper 80's. Patient has a productive cough
and just recently finished abx for a UTI 2 days ago. She is having AECOPD. She has been put on Duonebs, Dexamethasone, and Azithromycin. Covid test came back negative while Flu test came back positive. The flu most likely caused her AECOPD.
Plan:
#COPD exacerbation
exertional dyspnea with increased O2 need
Using PRN home O2 with all movement for 2 weeks
EKG: NSR
CXR: Consistent with mild COPD and emphysema
DuoNebs discontinued
Continue
-Dexamethasone
-Albuterol, Azithromycin, Guaifenesin, Ohtuvayre and Trelegy
-Treat Flu with tamiflu and the COPD will resolve as well.
-Morning cultures 2x ordered
-Start Doxycyline 100 mg Q12hr to treat her Staph Epi via positive urine culture via OP PCP office.
-Doing better- Possible discharge tomorrow.
-Home O2 assessment ordered.
#Hx Breast Cancer right IDC
follows with [facility] Dr. Bae
s/p chemo and radiation
Code status: full code
DVT prophylaxis: lovenox sq
Anticipated Discharge: 24 - 48 hours
Subjective/Interval History
-
Date of Service: September 03, 2025
No acute overnight events were reported for this patient.
Objective Data
-
Labs:
Laboratory Results
09/03/25
07:17
WBC 12.6 H
Hgb 11.6 L
Hct 34.8 L
Plt Count 242
Sodium 134 L
Potassium 4.6
Chloride 100
Carbon Dioxide 31 H
BUN 16
Creatinine 0.6
Glucose 132 H
Calcium 9.3
Total Bilirubin 0.3
AST 20
ALT 18
Alkaline Phosphatase 30 L
Vital Signs:
Vital Signs
Temp Pulse Resp BP Pulse Ox
98.2 F 109 18 120/73 91
09/03/25 15:00 09/03/25 15:00 09/03/25 15:00 09/03/25 15:00 09/03/25 15:00
I&O
09/02/25 09/03/25 09/04/25
06:59 06:59 06:59
Intake Total 240 / 240 1560 / 1560
Output Total 300 / 300
Balance 240 / 240 1560 / 1560 -300 / -300
Urine Culture OP: Staph Epidermatis (+)
Review of Systems
-
History Source: Patient
Respiratory: Reports Trouble Breathing
Physical Exam
-
General: Well Developed, Well Nourished, No Apparent Distress and Comfortable
HEENT: Normocephalic and Atraumatic
Respiratory: Wheezes and Decreased Breath Sounds
Cardiac: Regular Rhythm and S1/S2
Breast: Deferred by me
GI: Soft, Nontender, Nondistended and Normal Bowel Sounds
Skin: Warm and IV Access / Catheter Site
Neuro: AO x 3
Psych: Calm and Intact Judgement/Insight
Data Reviewed
-
Diagnostic Radiology: Report Reviewed by me and Discussed with Physician
Labs: Labs Reviewed by me and Discussed with Physician
[2025-09-03] MEDS: OCEAN, SALINE MIST 1 SPRAYS NASAL (20:58)
[2025-09-03] MEDS: AMBIEN 5 MG PO (23:15)
[2025-09-03 23:17] VITALS: BP 102/66
[2025-09-04] MEDS: DECADRON 4 MG IV ×2 (03:14→15:40)
[2025-09-04 06:23] LABS: Hematocrit 36.1 % (37.0-47.0); Hemoglobin 12.2 g/dL (12.0-16.0); Mean Corp Hgb Conc. 33.8 g/dL (33.0-37.0); Mean Corpuscular Volume 93.8 fL (81.0-99.0); Nucleated Red Blood Cells % 0 %; Platelet Count 256 10^3/uL (130-400); Red Cell Dist. Width 12.0 % (11.5-14.5)
[2025-09-04 06:47] LABS: ALT (SGPT) 19 U/L (0-35); AST (SGOT) 21 U/L (14-36); Albumin 3.6 g/dl (3.5-5.0); Alkaline Phosphatase 31 U/L (38-126); Blood Urea Nitrogen 15 mg/dl (7-17); Calcium 9.3 mg/dl (8.4-10.2); Carbon Dioxide 32 mmol/L (22-30); Chloride 100 mmol/L (98-107); Estimated Creatinine Clearance 65 ml/min; Glucose 113 mg/dl (70-99); Magnesium 2.3 mg/dl (1.6-2.3); Potassium 4.5 mmol/L (3.5-5.1); Sodium 134 mmol/L (135-145); Total Protein 5.6 g/dl (6.3-8.2); eGFR > 60.00
[2025-09-04 07:00] VITALS: BP 106/68
[2025-09-04] MEDS: NON-FORMULARY ITEM 200 INH INH (07:57)
[2025-09-04] MEDS: NON-FORMULARY ITEM 2.5 ML INH (08:03)
[2025-09-04] MEDS: ZITHROMAX 250 MG PO (08:05)
[2025-09-04] MEDS: CARDIZEM CD 120 MG PO (08:05)
[2025-09-04] MEDS: TAMIFLU 75 MG PO (08:06)
[2025-09-04] MEDS: MUCINEX 1200 MG PO (08:06)
[2025-09-04] MEDS: VIBRAMYCIN 100 MG PO (08:06)
--- NOTE | 2025-09-04 11:23 | W.PN.HOSP.TC ---
Addendum entered and electronically signed by Joi Banerjee MD 09/04/25 16:44:
I saw and evaluated the patient independently. I reviewed and discussed the resident�s note and agree with findings and plan as documented by Dr. Lamar.
GENERAL: well developed, well nourished, female in no apparent distress
HEENT: NC/AT--on room air
HEART: regular rate and rhythm, +S1, +S2
LUNGS : clear to auscultation bilaterally--no wheezes, decreased BS bilaterally
ABDOM: soft, nontender, nondistended, + bowel sounds
EXT: no cyanosis, clubbing, or edema
NEUROLOGIC: grossly intact
Patient is in need of oxygen on exertion due to pulse oximetry of 91% on room air at rest; 86% on room air with exertion. Patient was placed on 1L O2 via nasal cannula with improvement. Oxygen will help to improve hypoxemia. Patient is mobile within
the home. Albuterol therapy has been discussed and is ineffective in treating hypoxemia-related symptoms. Oxygen will improve the patient's symptoms.
Acute COPD exacerbation with acute hypoxemic resp insufficiency triggered by influenza positive--wean O2 to off, qualifies for home O2 with exertion--wean steroids, cont nebs--tamiflu--apprec pulm--cont Azithromycin, Guaifenesin, Ohtuvayre and
Trelegy --pt driving herself home and will wait for the O2 there
Staph epi UTI--as per outpt PCP--resistant to Bactrim--starting doxy per sensitivities--finish 1 week course
Hx Breast Cancer right IDC--follows with [facility] Dr. Bae--s/p chemo and radiation
Code status-- full code
DVT proph-- lovenox
d/c
Original Note:
Today's Communication/Plan
-
Transition to prednisone 40 mg and decrease by 10 mg every 72 hours to baseline
Complete course of Tamiflu for 2 more days
Complete Azithromycin for one week
Restart inhalers
Can use nebulizers as needed
Discharge today
Assessment / Plan
Assessment / Plan
Impression:
69 year old female with PMH of COPD, Fibromyalgia, PMR, Migraines, Anxiety/Depression, Diverticulosis, OA, HLD, R-sided breast cancer, presenting with increased exertional dyspnea for 2-3 weeks hypoxia to upper 80's. Patient has a productive cough
and just recently finished abx for a UTI 2 days ago. She is having AECOPD. She has been put on Duonebs, Dexamethasone, and Azithromycin. Covid test came back negative while Flu test came back positive. The flu most likely caused her AECOPD.
Plan:
#COPD exacerbation
exertional dyspnea with increased O2 need
Using PRN home O2 with all movement for 2 weeks
EKG: NSR
CXR: Consistent with mild COPD and emphysema
DuoNebs discontinued
Continue
-Dexamethasone
-Albuterol, Azithromycin, Guaifenesin, Ohtuvayre and Trelegy
-Treat Flu with tamiflu (Continue for 2 more days) and the COPD will resolve as well.
-Morning cultures 2x ordered -- came back negative
-Start Doxycyline 100 mg Q12hr to treat her Staph Epi via positive urine culture via OP PCP office.--Cont. Doxy for 7 more days.
-Doing better- Possible discharge today.
-Home O2 assessment ordered-- sending home with O2 tank.
-Will be discharged on a Prednisone taper as well
#Hx Breast Cancer right IDC
follows with [facility] Dr. Bae
s/p chemo and radiation
Code status: full code
DVT prophylaxis: lovenox sq
Anticipated Discharge: Today
Subjective/Interval History
-
Date of Service: September 04, 2025
As of this morning, patient has not reported any acute overnight events except for some mild congestion and cough, for which she received Mucinex (guaifenesin) to treat.
Objective Data
-
Labs:
Laboratory Results
09/04/25
06:10
WBC 12.4 H
Hgb 12.2
Hct 36.1 L
Plt Count 256
Sodium 134 L
Potassium 4.5
Chloride 100
Carbon Dioxide 32 H
BUN 15
Creatinine 0.7
Glucose 113 H
Calcium 9.3
Total Bilirubin 0.4
AST 21
ALT 19
Alkaline Phosphatase 31 L
Vital Signs:
Vital Signs
Temp Pulse Resp BP Pulse Ox
98.2 F 76 18 106/68 95
09/04/25 07:00 09/04/25 08:05 09/04/25 08:05 09/04/25 08:05 09/04/25 08:05
I&O
09/03/25 09/04/25 09/05/25
06:59 06:59 06:59
Intake Total 1560 / 1560 960 / 960
Output Total 300 / 300
Balance 1560 / 1560 660 / 660
Urine Culture OP: Staph Epidermatis (+)
Micro Respiratory Specimen (09/01/2025): Influenza B, NAAT
Micro Urine Specimen (09/03/2025): (-) No final growth
Review of Systems
-
History Source: Patient
Respiratory: Reports Cough (mild) and Other (mild congestion)
Physical Exam
-
General: Well Developed, Well Nourished, No Apparent Distress and Comfortable
HEENT: Normocephalic and Atraumatic
Respiratory: Decreased Breath Sounds
Cardiac: Regular Rhythm and S1/S2
Breast: Deferred by me
GI: Soft, Nontender, Nondistended and Normal Bowel Sounds
Skin: Warm and IV Access / Catheter Site
Neuro: AO x 3
Psych: Calm and Intact Judgement/Insight
Data Reviewed
-
Diagnostic Radiology: Report Reviewed by me and Discussed with Physician
Labs: Labs Reviewed by me and Discussed with Physician
--- NOTE | 2025-09-04 11:23 | W.DCSUMMARY ---
Addendum entered and electronically signed by Joi Banerjee MD 09/04/25 16:51:
Read, reviewed, and agree. See same day progress note for additional details. Time spent coordinating care, DC planning, review of DC plan of care with resident, transition of care, review of records in EMR, med rec, consults, notes, d/w
consultants, nursing, family, and CM = 32 minutes.
Original Note:
Discharge Summary
Discharge Data
Date of Admission: 09/01/25
Date of Discharge: 09/04/25
-
Pending Results: No
Hospital Course
Discharging Physician : Dr. Joi Banerjee
Disposition : Home
Primary care physician : Dr. Emilia Alcala
Principal Discharge diagnosis : Acute COPD exacerbation with acute hypoxemic respiratory insufficiency
Chronic Discharge diagnosis : Staph Epidermitis UTI, Hx of Breast Cancer right IDC
Hospital Course : Patient is a 69-year-old female with past medical history significant for COPD, fibromyalgia, polymyalgia rheumatica, anxiety / depression and Hx Breast Cancer right IDC who presented to [facility] for evaluation of increased
shortness of breath and hypoxia. Patient reports that she has been having increased shortness of breath with exertion and hypoxia at home for the past 2-3 weeks. She states she has also had intermittent productive cough. Her primary care provider
had prescribed prednisone taper and she continued with symptoms so they recommended she go to ED for evaluation. She also notes she just finished antibiotics for UTI. Denies fever, chills, chest pain, nausea, vomiting, constipation or diarrhea. She
is having AECOPD. She has been put on Duonebs, Dexamethasone, and Azithromycin. Covid test came back negative while Flu test came back positive. The flu most likely caused her AECOPD. Patient treated with Tamiflu. Patient was also started on
Doxycyline 200 mg Q12h for his UTI infection. Patient is healing well and ready for discharge accompanied by an oxygen tank.
Important imaging findings :
CXR (09/01/2025): IMPRESSION:
1. Moderate bilateral lung hyperinflation consistent with chronic obstructive pulmonary disease and mild to moderate centrilobular emphysema.
2. No radiographic evidence for pneumonia or pleural effusion.
3. Severe calcific atherosclerotic plaque in the coronary arteries.
EKG (09/01/2025): Normal Sinus Rhythm
Procedure findings :
Discharge Plan
-
Patient Disposition: Home (Routine Discharge)
Discharge Diagnosis/Procedures: Acute chronic obstructive pulmonary disease exacerbation with acute hypoxemic respiratory insufficiency, staphylococcus epidermidis urinary tract infection, History of right breast cancer invasive ductal carcinoma
Condition: Fair
Diet: Regular
Activity: No restrictions and As tolerated
Driving Restrictions: As prior to admission
Bathing Restrictions: None
Blood Work: Follow up CBC,CMP, UA with PCP
Other Services: VN
Specialty Instructions: Weigh Daily- Call MD for wt gain/loss 3 lbs overnight/5 lbs in 1 week
Referrals:
Niya Lafleur DO [Active, Pulmonary Medicine] - in two to three weeks
Referral Note: May see [facility]
Emilia Alcala MD [Family Provider, Internal Medicine] - in one week
Referral Note: F/U CBC, CMP, UA with PCP
Additional Discharge Medication Instructions: Take prednisone in a taper so 30 mg ( 3 tabs) once a day for 5 day then 20 mg (2 tabs) once a day for 5 days then 10 mg (1 tab) once a day for 5 days, then you're done.
Prescriptions:
New
doxycycline hyclate 100 mg Capsule
100 mg PO Q12 7 Days Qty: 14 0RF
oseltamivir [Tamiflu] 75 mg capsule
75 mg PO BID 2 Days Qty: 4 0RF
prednisone 10 mg tablet
10 mg PO DAILY Qty: 30 0RF
Rx Instructions:
30 mg ( 3 tabs) once a day for 5 day then
20 mg (2 tabs) once a day for 5 days then
10 mg (1 tab) once a day for 5 days
Continued
zolpidem 10 mg Tablet
5 - 10 mg PO HSPRN PRN (Reason: sleep)
albuterol sulfate 90 mcg/actuation Hfa Aerosol Inhaler
2 puff INHALATION R Q4HPRN PRN (Reason: sob)
Ohtuvayre 3 mg/2.5 mL Suspension For Nebulization
2.5 ml INHALATION BID
Patient Comments:
10 am 10 pm usually
Trelegy Ellipta 200-62.5-25 mcg blister with device
1 inh INHALATION DAILY
oxycodone-acetaminophen 5-325 mg tablet
1 tab PO PRN PRN (Reason: pain)
morphine 15 mg Tablet Extended Release
15 mg PO Q8H PRN (Reason: Pain)
azithromycin [Zithromax] 250 mg Tablet
250 mg PO DAILY Qty: 0 0RF
prednisone 5 mg Tablet
10 mg PO DAILY Qty: 0 0RF
Patient Comments:
on a taper
diltiazem HCl 120 mg Capsule,Extended Release 24 Hr
120 mg PO DAILY Qty: 0 0RF
guaifenesin [Mucinex] 600 mg Tablet Extended Release 12hr
1,200 mg PO BID Qty: 0 0RF
Vitamin D3
1 dose PO DAILY Qty: 0 0RF
Discharge Orders:
Discharge Patient (As Directed); Ordered 09/04/25
Ordered By: Carly Lamar
Discharge Date and Time
Print Language: SYRIAN
[2025-09-04] MEDS: PERCOCET 5/325 1 TABLET PO (11:27)
--- NOTE | 2025-09-04 11:41 | W.PN.PUL3 ---
Today's Communication / Plan
-
Transition to prednisone 40 mg and decrease by 10 mg every 72 hours to baseline
Complete course of Tamiflu
Restart inhalers
Can use nebulizers as needed
Discharge today
Sign off
Assessment
-
73-year-old woman with history of COPD, chronic hypoxemic and hypercapnic respiratory failure-admitted with 2 weeks worth of shortness of breath, increased phlegm production.
Chest x-ray was clear. She was found to be mildly hypoxemic on room air which is new for her.
She was found to be flu B+.
I was consulted for management of COPD in the setting of severe/advanced COPD
Acute exacerbation of COPD-triggered by influenza
Chest x-ray 09/01/2025: Reviewed, showed hyperinflation. No evidence for infiltrate
Acute respiratory insufficiency secondary to above.
Influenza B+ 09/01/2025
Conditions present prior admission:
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
ABG 07/22/2024: 7.39/54/54
Fibromyalgia
Polymyalgia rheumatica-chronic prednisone therapy 10 mg
Migraine headaches
Anxiety/depression
Diverticulosis
Polymyalgia rheumatica
Hypercholesterolemia
History of breast cancer on the right-status postlumpectomy 11/13/2024
Right breast biopsy 09/2024
Zenker diverticulectomy
Assessment and plan:
COPD exacerbation likely triggered by influenza.
No x-ray suggestion of pneumonia.
Remains afebrile
Mild leukocytosis stable
No oxygen requirements
-
Agree with current management including:
Okay to transition to prednisone
DuoNebs 4 times a day-while in the hospital
Restart inhalers upon discharge.
Okay to continue daily azithromycin for anti-inflammatory properties
Tamiflu complete total of 5 days
Monitor for bacterial superinfection-so far no evidence of it.
-
Can consider in the outpatient setting interleukin inhibitor/such as Dupixent or Nucala.
Previously patient had peripheral eosinophilia but with chronic steroids now down to 0.
Can consider weaning off prednisone in the outpatient setting and rechecking CBC.
Will defer to Dr. Lunsford.
-
Currently oxygen has been weaned off on room air.
Encourage incentive spirometry
Increase activity as able
Isolation per protocol
-
Last appoint 06/15/2025: Maximal medical therapy. Trelegy/chronic prednisone 10 mg/low-dose macrolide therapy for anti-inflammatory properties/Ohtuvayre/vest therapy which she is not using frequently.
Completed pulmonary rehabilitation.
Noninvasive mechanical ventilation at night intermittently for chronic hypercapnia.
Last walking test without exertional oxygen requirements.
Last low-dose radiation CAT scan without lung nodules.
-
Patient has an appointment with Dr. Niya Lunsford 10/20/2025.
-
Okay to discharge from the pulmonary perspective
Short-term follow-up in our office in the next 2 weeks.
Subjective Data
-
Date of Service:
Date of Service: September 04, 2025
Chief Complaint: Pulmonary Follow Up (Acute COPD exacerbation-influenza B.)
Subjective:
Patient feels better
Less cough
Less wheezing
No significant shortness of breath.
Review of Systems
General: Fever (n)
Cardiopulmonary: Dyspnea (Improved.)
GI: Abdominal Pain (n) and Nausea
Objective Data
Data Reviewed
Vital Signs / I&O / Oxygen:
Vital Signs
Temp Pulse Resp BP Pulse Ox
98.2 F 76 18 106/68 95
09/04/25 07:00 09/04/25 08:05 09/04/25 08:05 09/04/25 08:05 09/04/25 08:05
Intake and Output
09/03/25 09/04/25 09/05/25
06:59 06:59 06:59
Intake Total 1560 / 1560 960 / 960
Output Total 300 / 300
Balance 1560 / 1560 660 / 660
SaO2 95
Nasal Cannula flow liters per 1
minute
Physical Exam
General: Comfortable
HEENT: Normocephalic
Cardiovascular: S1-S2
Respiratory: Wheeze (minimal)
GI: Soft and Non Distended
Neurology: Awake
Skin: Warm
Labs/Micro/Reports
Lab Data
09/04/25 06:10
09/04/25 06:10
Microbiology
09/03/25 11:23 Urine Urine Culture - Final
No Significant Growth
09/01/25 21:55 Nasal Swab Influenza Types A & B (CATRACHO) - Final
Influenza B Positive, NAAT
[2025-09-04 15:04] VITALS: BP 124/71
--- NOTE | 2025-09-04 16:27 | CM ---
Patient seen at bedside with physicians. Patient plan for discharge home, Patient declined VN and accepted by [facility]. they will contact patient for delivery of home O2. Patient completed IMM form and signed form placed on chart. Patient has car at
and plan is to drive home. CM will continue to follow for discharge home.
Plan; home with [facility] to call patient for delivery
== END 2025-09-04 16:40 | disposition home or self-care (01) | DRG 191 ==
LOC: 2 NORTH 19:21
PROVIDERS: Nurse Practitioner Family; ADMITTING PHYSICIAN Hospitalist; ATTENDING PHYSICIAN Internal Medicine; CONSULT PHYSICIAN Internal Medicine Critical Care Medicine; EMERGENCY PHYSICIAN Emergency Medicine; FAMILY PHYSICIAN Student in an Organized Health Care Education/Training Program
DX: J44.1 Chronic obstructive pulmonary disease with (acute) exacerbation (principal); J96.11 Chronic respiratory failure with hypoxia; J96.12 Chronic respiratory failure with hypercapnia; N39.0 Urinary tract infection, site not specified; B95.7 Other staphylococcus as the cause of diseases classified elsewhere; Z85.3 Personal history of malignant neoplasm of breast; F32.A Depression, unspecified; F41.9 Anxiety disorder, unspecified; M35.3 Polymyalgia rheumatica; M79.7 Fibromyalgia; J43.2 Centrilobular emphysema; Z11.52 Encounter for screening for COVID-19; I25.10 Atherosclerotic heart disease of native coronary artery without angina pectoris; K57.30 Diverticulosis of large intestine without perforation or abscess without bleeding; E78.00 Pure hypercholesterolemia, unspecified; Z88.0 Allergy status to penicillin; D72.10 Eosinophilia, unspecified; F17.200 Nicotine dependence, unspecified, uncomplicated; G89.29 Other chronic pain; Z79.52 Long term (current) use of systemic steroids; Z79.899 Other long term (current) drug therapy; Z80.41 Family history of malignant neoplasm of ovary; Z80.42 Family history of malignant neoplasm of prostate; Z82.49 Family history of ischemic heart disease and other diseases of the circulatory system
CPT/HCPCS: 71046; 77063; 77067; 80048; 80053; 83735; 83880; 85025; 87086; 87502; 87811; 93005; 94640; 94644; 94660; 96374; 99285

== ENCOUNTER 2025-10-01 19:04 | Inpatient (IN) | payer MEDICARE, SELFPAY ==
[2025-10-01 16:36] VITALS: BP 123/79; BMI 20.6
[2025-10-01 17:00] LABS: Hematocrit 39.1 % (37.0-47.0); Hemoglobin 13.3 g/dL (12.0-16.0); Mean Corp Hgb Conc. 34.0 g/dL (33.0-37.0); Mean Corpuscular Volume 92.2 fL (81.0-99.0); Nucleated Red Blood Cells % 0 %; Platelet Count 278 10^3/uL (130-400); Red Cell Dist. Width 11.9 % (11.5-14.5)
[2025-10-01 17:28] LABS: ALT (SGPT) 21 U/L (0-35); AST (SGOT) 19 U/L (14-36); Albumin 3.7 g/dl (3.5-5.0); Alkaline Phosphatase 55 U/L (38-126); Blood Urea Nitrogen 10 mg/dl (7-17); Calcium 9.4 mg/dl (8.4-10.2); Chloride 93 mmol/L (98-107); Estimated Creatinine Clearance 64 ml/min; Glucose 127 mg/dl (70-99); Potassium 3.7 mmol/L (3.5-5.1); Sodium 138 mmol/L (135-145); Total Protein 6.4 g/dl (6.3-8.2); eGFR > 60.00
[2025-10-01 17:36] LABS: COVID-19 Antigen Negative (Negative)
[2025-10-01] MEDS: ATROVENT NEBULES 1 MG INH (17:36)
[2025-10-01] MEDS: VENTOLIN NEBULES 10 MG INH (17:36)
[2025-10-01 18:06] LABS: Carbon Dioxide 40 mmol/L (22-30)
--- NOTE | 2025-10-01 18:29 | ED.GENMED ---
History of Present Illness
General
Chief Complaint: Breathing Problem
Time Seen by Provider: 10/01/25 16:36
History of Present Illness
History of Present Illness:
69-year-old female with history of brittle COPD on chronic daily prednisone presents the emergency department for evaluation of increased coughing and shortness of breath for the past 5 days. She did have influenza B approximate 1 month ago.
Denies any chest pain, fevers, or night sweats. Cough is generally nonproductive. Arrived via EMS receiving a DuoNeb treatment.. Did receive 10 mg IV Decadron by EMS
Past History
Past History
ED Past Medical History: COPD, Fibromyalgia and Other (Fibromyalgia, chronic neck and back pain, Osteoarthritis)
ED Past Surgical History:
Social History
Tobacco: Smoker
Alcohol: Occasional
Drug: None
Personal:
Living: with family
Family History
Family History: Other
Review of Systems
Review of Systems
Allergies reviewed?: Yes
All Other Systems: ROS reviewed and negative except as documented in HPI and ROS
Phy Exam
Physical Exam
Physical Exam:
GEN: Well appearing, NAD, WDWN
HEENT: Oral mucosa moist, no scleral icterus
Cardiac: Tachycardic, regular
Lung: Tachypneic with accessory muscle use, quiet wheezes throughout all lung campos
MSK: No gross deformity or injuries
Skin: Good color, no pallor or jaundice, no rashes
Neuro: AO x3, moves all extremities freely
Psych: Calm, cooperative
Scores
Heart Failure Risk
Heart Failure Risk Score: Not Applicable
Sepsis
Sepsis Screening
Sepsis Assessment: Sepsis Ruled Out
Sepsis Screen
Sepsis Screen: Sepsis Ruled Out
Date: 10/01/25
Time: 19:20
Course
Orders/Labs/Results
Orders:
Orders
10/01/25 16:46
EKG [Electrocardiogram (*1)] Urgent
Reason for Study: Shortness of Breath
EKG- Treatment ONCE
Albuterol Sulfate [Ventolin Nebules] 10 mg INH R NOW STA
Ipratropium Nebs [Atrovent Nebules] 1 mg INH R NOW STA
10/01/25 16:47
CR Chest - 2 Views Urgent
Comment:
Reason For Exam: cough/sob
10/01/25 16:49
COVID-19 Antigen Urgent
Source: Nasal Swab
Complete Blood Count/With Diff Urgent
Comprehensive Metabolic Panel Urgent
Influenza A+B Rapid Molecular Urgent
SHENG Source: Nasal Swab
Specimen Description:
10/01/25 18:02
Azithromycin [Zithromax] 250 mg 0.9% Sodium Chloride 250 ml [Nss] 250 ml IV NOW
10/01/25 18:45
Admit/Transfer Patient As Directed
Co-Sign Provider:
Level of Care: Inpatient admission
Assign to:: Telemetry
Physician / Group: florina baez
Diagnosis: acute hypoxic respiratory failure
Reason for Telemetry: Arrhythmia
Date to Stop Telemetry: 10/04/25
Time to Stop Telemetry: 11:00
Reason for Hospitalization: COPD exacebation
influenza
Expected length of stay greater than two midnights?: Yes
ELOS- Estimated Length of Stay in days: 3
I certify the patient meets the requirements for IP care: Yes
10/01/25 18:46
PRN Pain Medication Management As Directed
May give lesser potent ordered pain med per pt: Yes
preference::
Protocol:: Medication orders for pain may be administered in a
manner that supports deferring to patient preference
when the pt is:
- Requesting an ordered lesser potent pain medication.
Least to most potent pain medications are defined
as: acetaminophen < NSAID < tramadol < opioids
(morphine, oxycodone, hydromorphone).
- Requesting a lesser dose of the same medication IF
ORDERED.
- Requesting a less intrusive route of administration
if both routes are prescribed by the provider (PO <
IV).
10/01/25 18:47
Code Status As Directed
Resuscitation Status: Full Code
10/01/25 18:52
PRN Pain Medication Management As Directed
May give lesser potent ordered pain med per pt: Yes
preference::
Protocol:: Medication orders for pain may be administered in a
manner that supports deferring to patient preference
when the pt is:
- Requesting an ordered lesser potent pain medication.
Least to most potent pain medications are defined
as: acetaminophen < NSAID < tramadol < opioids
(morphine, oxycodone, hydromorphone).
- Requesting a lesser dose of the same medication IF
ORDERED.
- Requesting a less intrusive route of administration
if both routes are prescribed by the provider (PO <
IV).
10/01/25 20:00
Oseltamivir Phosphate [Tamiflu] 75 mg PO BID
10/04/25 11:00
DC Protocol for Telemetry ONCE
Abnormal Lab Results
10/01/25
16:49
WBC 10.9 H 10^3/uL
(4.8-10.8)
MCH 31.4 H pg
(27.0-31.0)
Abs Immat Gran (auto) 0.1 H 10^3/uL
(0-0.05)
Absolute Neuts (auto) 8.5 H 10^3/uL
(1.4-6.5)
Absolute Monos (auto) 0.8 H 10^3/uL
(0.1-0.6)
Immature Gran % 0.7 H %
(0-0.5)
Neutrophils % 77.6 H %
(42.2-75.2)
Lymphocytes % 14.1 L %
(20.5-51.1)
Chloride 93 L mmol/L
(98-107)
Carbon Dioxide 40 H mmol/L
(22-30)
Glucose 127 H mg/dl
(70-99)
10/01/25 16:49
10/01/25 16:49
Vital Signs
Initial and Last Documented VS:
Initial Vital Signs
Temp Pulse Resp BP Pulse Ox
97.9 F 115 20 123/79 90
10/01/25 16:36 10/01/25 16:36 10/01/25 16:36 10/01/25 16:36 10/01/25 16:36
Last Documented Vital Signs
Temp Pulse Resp BP Pulse Ox
97.9 F 115 20 123/79 90
10/01/25 16:36 10/01/25 16:36 10/01/25 16:36 10/01/25 16:36 10/01/25 18:30
MDM/Problems Addressed
MDM/Problems Addressed:
For acute COPD exacerbation. Patient with influenza A, however once in the treatment window for antivirals at this point
*Pulse Oximetry
SaO2: 90
Nasal Cannula flow liters per minute: 2
Patient hypoxic: yes
*Critical Care Note
Total Time (30-74mins, 75-104mins- exclusive of procedures): Not Applicable
ED Attending Note
-
Portions of this chart may have been created with voice recognition software.� Occasional wrong word or��sound alike� substitutions may have occurred due to the inherent limitations of voice recognition software.
Discharge Plan
Departure
Patient Disposition: Admit
Date of Disposition: 10/01/25
Time of Disposition: 18:30
Admit to: Med/Surg
Presentation/result/management discussed w/ accepting MD/DO: Hospitalist
Discharge Problem:
Acute exacerbation of chronic obstructive pulmonary disease (COPD), Influenza
Interventions
Interventions:
*Risk Screen - Suicide Last Done: 10/01/25 16:36
*General Assessment Last Done: 10/01/25 16:36
*Neglect/Abuse Screening Last Done: 10/01/25 16:36
[facility] Risk Assessment Tool Last Done: 10/01/25 16:33
ED- Cardiac Assessment Last Done: 10/01/25 16:47
ED- Pulmonary Assessment Last Done: 10/01/25 16:47
--- NOTE | 2025-10-01 18:30 | HPS.HSE ---
Family Physician
-
Family Physician: NOT KNOW UNKNOWN - PT DOES
Chief Complaint
-
Short of breath
History of Present Illness
69-year-old with past medical history for COPD, fibromyalgia, chronic pain presented to us with increased coughing and shortness of breath for the past 5 days. Patient stated nonproductive cough. Shortness of breath is worse with exertion. She
uses 1 to 2 L as needed for short of breath with exertion, but for for last 5 days she was using oxygen constantly. She is complaining of headache.patient denied any fever, chills, chest pain. She denied abdominal pain, nausea, vomiting or
diarrhea. Patient denied dysuria hematuria.
Positive for influenza, patient is requiring 4 L of oxygen. Patient received nebulizer, Decadron in ER. Admitting for further manage
Medical History
Past Medical History
Past Medical History: Reports Other
Additional Past Medical History:
Fibromyalgia, insomnia, osteoarthritis, diverticulosis, polymyalgia rheumatica, headache, Zenker's, cervical stenosis, COPD, high cholesterol, breast cancer
Past Surgical History: Reports Other
Additional Past Surgical History:
DNC, cataract extraction, , no surgery, lumpectomy
Social History
Tobacco: Non-smoker
Alcohol: None
Drug: None
Family History
Family History: Not pertinent
Allergies / Home Medications
Allergies reflects when Allergies were last updated in [facility].
Home Medications with original date entered in [facility]
Allergy/Medication List:
Allergies
Allergy/AdvReac Type Severity Reaction Status Date / Time
amoxicillin Allergy Anaphylaxis Verified 10/01/25 16:44
Home Medications
zolpidem 10 mg tablet 10 mg PO HSPRN PRN sleep 05/04/23
ensifentrine 3 mg/2.5 mL suspension for nebulization (Ohtuvayre) 2.5 ml inhalation BID COPD 09/01/24
fluticasone fur. 200 mcg-umeclid 62.5 mcg-vilant 25 mcg inhalat.powder (Trelegy Ellipta) 1 inh inhalation DAILY COPD 09/01/24
oxycodone-acetaminophen 5 mg-325 mg tablet 1 tab PO PRN PRN pain 11/12/24
azithromycin 250 mg tablet (Zithromax) 250 mg PO DAILY Lung/breathing issues #0 tabs 09/03/25
diltiazem HCl 120 mg capsule,24 hr,extended release 120 mg PO DAILY Heart disease/condition #0 caps 09/03/25
guaifenesin 600 mg tablet, extended release 12 hr (Mucinex) 1,200 mg (2 x 600 mg) PO BID Allergies #0 tabs 09/03/25
prednisone 10 mg tablet 10 mg PO DAILY #30 tabs 09/04/25
Review of Systems
-
Constitutional: Reports No Symptoms
EENT: Reports No Symptoms
Respiratory: Reports Cough and Trouble Breathing
Cardiac: Reports No Symptoms
Abdomen/GI: Reports No Symptoms
: Reports No Symptoms
Musculoskeletal: Reports No Symptoms
Skin: Reports No Symptoms
Neurological: Reports No Symptoms
Endocrine: Reports No Symptoms
Hematologic/Lymphatic: Reports No Symptoms
Psych: Reports No Symptoms
Physical Exam
Vital Signs
Vital Signs
Temp Pulse Resp BP Pulse Ox
97.9 F 115 20 123/79 90
10/01/25 16:36 10/01/25 16:36 10/01/25 16:36 10/01/25 16:36 10/01/25 18:30
Physical Exam
General: Well Developed, Well Nourished and No Apparent Distress
HEENT: NormoCephalic, Moist mucous membranes and Atraumatic
Respiratory: Clear
Cardiac: S1/S2 and Regular Rhythm; No Murmur or Rub
GI: Soft, Non Tender, Non Distended and Normal Bowel Sounds; No Organomegaly
Rectal: Deferred by Provider
Musculoskeletal: No Clubbing, No Cyanosis and No Edema
Skin: No Rash
Neuro: AO x 3 and Nonfocal/grossly intact
Psych: Calm
Laboratory Results
-
10/01/25 16:49
10/01/25 16:49
Laboratory Results
Total Bilirubin 0.6 mg/dl (0.2-1.3) 10/01/25 16:49
AST 19 U/L (14-36) 10/01/25 16:49
ALT 21 U/L (0-35) 10/01/25 16:49
Alkaline Phosphatase 55 U/L (38-126) 10/01/25 16:49
Data Reviewed
-
Lab Data: Labs Reviewed by me
Impression/Plan
-
# Acute hypoxic respiratory failure secondary to COPD exacerbation
# Influenza A
- IV steroids continue
-zithro from home continued
-Nebs were short of breath and wheezing
-Tamiflu
- Continue supplemental oxygen to keep saturation greater than 87, wean as tolerated
- Chest x-ray pending
- Pulmonology consulted
#Hx Breast Cancer right IDC--follows with [facility] Dr. Bae--s/p chemo and radiation
# Hypertension
- Cardizem continued
Code status-- full code
DVT proph-- Lovenox
--- NOTE | 2025-10-01 18:30 | W.PN.UPDATE ---
Addendum entered and electronically signed by Jose Bailey MD 10/02/25 07:33:
CXR
Subtle bibasilar pneumonitis versus mild interstitial edema.
Original Note:
Update Note
Progress Note Update
This note serves as an addendum to the H&P by stripper apprentice Karli SOLANO�
HPI from the patient
69F HX prednisone dependent, on PRN 2 L home O2 COPD, Fibromyalgia, PMR, Migraines, Anxiety/Depression, Diverticulosis, OA, HLD, R-sided breast CA seen at ER:
- for evaluation of increased dry cough and worsening SoB for the past 5 days.
- Cough is generally nonproductive.
- on PRN home O2 but last 48Hrs - need O2 2L round the clock
- influenza B approximate 1 month ago.
- POS Influenza A upon admission
She did not get the Flu shot this year
ROS
Denies any chest pain, fevers, or night sweats.
- Arrived via EMS receiving a DuoNeb treatment
- receive 10 mg IV Decadron by EMS
Relevant VS
10/01/25
16:36 10/01/25
18:30
Temp 97.9 F
Pulse 115
Resp Rate 20
SaO2 90 90
Nasal Cannula flow liters per minute 2 2
PE
Gen: alert , dyspneic with speech
HEENT: anicteric
Neck: supple
Lungs: tachypneic, poor AE at both campos, exp wheeze both campos
Cor: RRR S1 S2
Abdomen:�soft benign
SYSTEMS MGR: AAO3 NFND
MS:no edema
Psych: appropriate
Relevant Data
09/04/25 09/11/25 10/01/25
06:10 12:04 16:49
WBC 10.9 H
Chloride 99 93 L
Carbon Dioxide 32 H 33 H 40 H
BUN 10
Creatinine 0.6 0.7
eGFR > 60.00
Total Bilirubin 0.6
AST 19
ALT 21
Alkaline Phosphatase 55
10/01/25 16:49 Influenza Types A & B (CATRACHO) - Final
Nasal Swab Influenza A Positive, NAAT
Pending CXR
Last hospitalist admission: 09/01/25 - 09/04/25
Principal Discharge diagnosis : Acute COPD exacerbation with acute hypoxemic respiratory insufficiency
Chronic Discharge diagnosis : Staph Epidermitis UTI, Hx of Breast Cancer right IDC
ASSESSMENT & PLAN
Acute COPD flare - triggered by influenza A
Associated acute hypoxemic RF now requiring 4 L O2
Interval worsening of baseline hypercarbia due to increment of NC O2 - at risk for CO2 retention
So far she is alert with stable wakefulness
Of note: she did not take Flu shot this year
- FU final CXR report
- wean O2 to goal low 90s to avoid CO2 retention
- Start Tamiflu
- IV Decadron 4mg q8h
- DuoNeb qid and PRN
- c/w PHYSICIAN/INTERNIST PO Azithromycin
- Pul consult
Recent HX Staph epi UTI resistant to Bactrim s/p doxy per sensitivities
Hx Breast Cancer R IDC follows with [facility] Dr. Bae
- s/p chemo and XRT
DVT LMWH Px:
Full code
IP TLM
[2025-10-01] MEDS: ZITHROMAX 252.5 MG IV (18:32)
[2025-10-01] MEDS: TAMIFLU 75 MG PO (19:37)
[2025-10-01] MEDS: MUCINEX 600 MG PO (20:38)
[2025-10-01 20:49] VITALS: BP 137/68
[2025-10-01] MEDS: DUONEB 3 ML INH (21:21)
[2025-10-01] MEDS: DECADRON 4 MG IV (21:34)
[2025-10-01] MEDS: PERCOCET 5/325 1 TABLET PO (21:37)
--- NOTE | 2025-10-01 22:13 | PTCARENOTE ---
Pt arrived via stretcher and ambulated to bedside. Pt oriented to unit, call white within reach. Will continue plan of care.
[2025-10-01 22:30] VITALS: BP 125/79
[2025-10-01] MEDS: AMBIEN 10 MG PO (22:58)
[2025-10-02 03:37] VITALS: BP 98/70
[2025-10-02] MEDS: DECADRON 4 MG IV ×3 (05:00→21:02)
[2025-10-02 06:56] LABS: Hematocrit 34.8 % (37.0-47.0); Hemoglobin 11.8 g/dL (12.0-16.0); Mean Corp Hgb Conc. 33.9 g/dL (33.0-37.0); Mean Corpuscular Volume 93.5 fL (81.0-99.0); Nucleated Red Blood Cells % 0 %; Platelet Count 281 10^3/uL (130-400); Red Cell Dist. Width 11.7 % (11.5-14.5)
[2025-10-02 07:22] LABS: Blood Urea Nitrogen 13 mg/dl (7-17); Calcium 8.9 mg/dl (8.4-10.2); Chloride 95 mmol/L (98-107); Estimated Creatinine Clearance 75 ml/min; Glucose 143 mg/dl (70-99); Potassium 4.4 mmol/L (3.5-5.1); Sodium 136 mmol/L (135-145); eGFR > 60.00
[2025-10-02 07:42] VITALS: BP 127/72
[2025-10-02 07:50] LABS: Carbon Dioxide 38 mmol/L (22-30)
[2025-10-02] MEDS: DUONEB 3 ML INH ×4 (08:09→18:32)
[2025-10-02] MEDS: SPIRIVA RESPIMAT 2.5 MCG 2 PUFF INH (08:09)
[2025-10-02] MEDS: SYMBICORT 160/4.5 MCG INHALER 2 PUFF INH ×2 (08:09→18:32)
--- NOTE | 2025-10-02 08:31 | W.PN.HOSP.TC ---
Addendum entered and electronically signed by Aliyah Tubbs MD 10/02/25 14:14:
Seen and examined the patient with the resident. Agree with the plan formulated with her. See changes in my documentation
69-year-old female with shortness of breath
Patient awake and alert
Cardiovascular system heart sounds S1-2 appreciated
Bilateral decreased breath sounds, few scattered bases
No pedal edema
# Acute hypoxic respiratory failure secondary to influenza and COPD exacerbation
On Tamiflu.
Patient is on daily Zithromax-continue
Started on IV steroids for COPD exacerbation
We can Continue Trelegy Ellipta and Ohtuvayre( needs to bring from home)
Continue mucolytic's
Wean oxygen as tolerated
Pulmonary has been consulted
# Hypertension-continue Cardizem
# Insomnia-continue Ambien as needed
# History of migraines
# History of right breast cancer with history of lumpectomy chemo and radiation-follows with Dr. Bae
# Fibromyalgia/osteoarthritis
# Polymyalgia rheumatica on low-dose of prednisone
# Ex Smoker-. Vaping continues ? -cessation counseling
# History of Zenker's diverticulum with surgery in the past
# Diverticulosis
# DVT prophylaxis-Lovenox
# Full code
Part of this note was created using voice recognition system. Occasional wrong word or��sound alike� substitutions may have inadvertently occurred due to the inherent limitations of voice recognition software. If noted kindly bring it to my
attention for correction.
Original Note:
Today's Communication/Plan
-
IV Decadron
Azithromycin
Duonebs
Tamiflu
Assessment / Plan
Assessment / Plan
Impression:
69-year-old with past medical history for COPD, fibromyalgia, chronic pain presented to the ED with increased coughing and shortness of breath for the past 5 days. She is on 1-2L O2 for episodes of exertion as needed, however the last 5 days she
been on oxygen continuously. She was brought in by EMS requiring 4L O2 and received 10mg IV Decadron. She was found to be influenza positive. Chest x-ray revealed subtle bibasilar pneumonitis versus mild interstitial edema. She was given IV
Decadron, nebulizers and started on Tamiflu. She is admitted to the floors for further workup.
Plan:
Acute hypoxemic respiratory failure secondary to COPD exacerbation triggered by influenza A
-- Chest x-ray revealed subtle bibasilar pneumonitis versus mild interstitial edema
-- IV steroids
-- Azithromycin
-- DuoNebs
-- Budesonide, spiriva
-- Tamiflu
-- Guaifenesin
-- Continue supplemental oxygen as needed to keep O2 >88%
-- Pulmonology consulted
Atrial tachycardia
-- Continue diltiazem
Fibromyalgia
-- As needed Percocet from home
Polymyalgia rheumatica
-- On prednisone 10 daily at home -chronic steroid use
History of breast cancer s/p lumpectomy 11/13/24, chemotherapy and radiation
-- Follows with Dr. Bae
Insomnia
Osteoarthritis
Diverticulosis
Headaches
Zenker diverticulum
Cervical stenosis
Migraines
Hyperlipidemia
Full Code
DVT Lovenox
Anticipated Discharge: 24 - 48 hours
Subjective/Interval History
-
Date of Service: October 02, 2025
4 L of oxygen overnight
Objective Data
-
Labs:
Laboratory Results
10/02/25
06:25
WBC 8.2
Hgb 11.8 L
Hct 34.8 L
Plt Count 281
Sodium 136
Potassium 4.4
Chloride 95 L
Carbon Dioxide 38 H
BUN 13
Creatinine 0.6
Glucose 143 H
Calcium 8.9
Vital Signs:
Vital Signs
Temp Pulse Resp BP Pulse Ox
97.9 F 99 18 127/72 93
10/02/25 07:42 10/02/25 08:12 10/02/25 08:12 10/02/25 07:42 10/02/25 08:12
Review of Systems
-
History Source: Patient
Respiratory: Reports Cough, Trouble Breathing and Wheezing
Cardiac: Reports No Symptoms
Abdomen/GI: Reports No Symptoms
Genitourinary: Reports No Symptoms
Skin: Reports No Symptoms
Neuro: Reports No Symptoms
Allergy / Immunology: Reports No Symptoms
Physical Exam
-
General: No Apparent Distress and Other (Receiving nebulizer treatment)
Respiratory: Wheezes and Decreased Breath Sounds
Cardiac: Regular Rhythm and S1/S2
GI: Soft, Nontender, Nondistended and Normal Bowel Sounds
Musculoskeletal: No Cyanosis and No Edema
Skin: Warm and Dry
Neuro: AO x 3
Psych: Calm
[2025-10-02] MEDS: CARDIZEM CD 120 MG PO (08:40)
[2025-10-02] MEDS: MUCINEX 600 MG PO ×2 (08:40→20:32)
[2025-10-02] MEDS: TAMIFLU 75 MG PO ×2 (08:40→20:32)
[2025-10-02] MEDS: ZITHROMAX 250 MG PO (08:40)
[2025-10-02 11:14] VITALS: BP 111/72
--- NOTE | 2025-10-02 11:45 | CON.PUL ---
Consultation
Consultation Request
Date/Time Consultation Requested: 10/02/2024
Date/Time Consultation Performed: 10/02/2025
Requesting Provider: Dr. Bailey
Performing Provider: Dr. Felix Cheung
Reason for Consultation: Acute exacerbation of COPD
Medical History
-
Chief Complaint: Worsening SOB
History of Present Illness:
-
69-year-old female active tobacco smoker with a past medical history of COPD on Chronic macrolide therapy, Trelegy and nebulized ohtuvayre and prn O2, Zenker's diverticulum, osteoarthritis, polymyalgia rheumatica, fibromyalgia, diverticulosis,
insomnia, following nausea, hyperlipidemia and migraine headaches. Recently discharged from the hospital with acute exacerbation of COPD 09/04/2025-influenza B+ at that time-.
-
Returns to the hospital 10/01/2025 with cough and increased shortness of breath for the last 5 days.
Cough is nonproductive
Denies any fevers or chills
In general she uses uses oxygen supplementation as needed but now use in the oxygen permanently for comfort.
Denies GI symptoms.
Denies symptoms
Denies any new rash
-
Interestingly, patient is now influenza A+.
She was influenza B+ on 09/01/2025.
-
Patient follows up at [facility] office, MUKESH Grider.
She is managed on Trelegy 200mcg for very severe COPD with albuterol twice a day. Low-dose prednisone therapy.
Nocturnal BiPAP for chronic hypercapnic respiratory failure which patient is not compliant.
As needed oxygen therapy
More recently 08/2025 started process for Nucala.
Also on chronic Zithromax daily and has required prednisone taper on a monthly basis for recurrent flares.
She did start pulmonary rehab but only completed half the program.
She had tried Breztri in the past but this worsened her cough.
Follows in the office with Dr. Niya Lunsford.
Past Medical History
Past Medical History: Other (Above as per HPI)
Past Surgical History: Other (Above as per HPI)
Social History
Tobacco: Former Smoker (Smoked 4-5 cigarettes a day with [id number] history (she reports 0.5 PPD x 50 years)
Alcohol: Occasional
Drug: None
Personal: ( about 2 years ago from a combination of heart disease/COPD/bladder cancer)
Family History
Family History: CAD (Mother: of an [place] at age 63), Cancer (Paternal first cousin: Ovarian cancer; father: Prostate cancer) and Other (Father: History of CVA ( at age 90 from this))
Allergies / Home Medications
Allergies
Allergy/AdvReac Type Severity Reaction Status Date / Time
amoxicillin Allergy Anaphylaxis Verified 10/01/25 16:44
Home Medications
�Medication �Instructions �Recorded �Confirmed �Last Taken �Type
zolpidem 10 mg tablet 10 mg PO HSPRN PRN sleep 05/04/23 10/01/25 09/01/25 History
ensifentrine 3 mg/2.5 mL 2.5 ml inhalation BID COPD 09/01/24 10/01/25 09/01/25 History
suspension for nebulization
(Ohtuvayre)
fluticasone fur. 200 mcg-umeclid 1 inh inhalation DAILY COPD 09/01/24 10/01/25 09/01/25 History
62.5 mcg-vilant 25 mcg
inhalat.powder (Trelegy Ellipta)
oxycodone-acetaminophen 5 mg-325 1 tab PO PRN PRN pain 11/12/24 10/01/25 09/01/25 History
mg tablet
azithromycin 250 mg tablet 250 mg PO DAILY Lung/breathing 09/03/25 10/01/25 09/01/25 Rx
(Zithromax) issues #0 tabs
diltiazem HCl 120 mg capsule,24 120 mg PO DAILY Heart 09/03/25 10/01/25 09/01/25 Rx
hr,extended release disease/condition #0 caps
guaifenesin 600 mg tablet, 1,200 mg (2 x 600 mg) PO BID 09/03/25 10/01/25 09/01/25 Rx
extended release 12 hr (Mucinex) Allergies #0 tabs
prednisone 10 mg tablet 10 mg PO DAILY #30 tabs 09/04/25 10/01/25 Unknown Rx
Review of Systems
-
History Source: Patient
All other systems: Negative unless noted
Vitals / Labs / Diagnostic Testing
Vital Signs
Temp Pulse Resp BP Pulse Ox
98.0 F 91 18 111/72 94
10/02/25 11:14 10/02/25 11:33 10/02/25 11:33 10/02/25 11:14 10/02/25 11:33
Lab Data
10/02/25 06:25
10/02/25 06:25
Microbiology
10/01/25 16:49 Nasal Swab Influenza Types A & B (CATRACHO) - Final
Influenza A Positive, NAAT
Diagnostic Testing:
Physical Exam
-
HEENT: Normocephalic
Cardiovascular: S1/S2
Respiratory: Wheeze (expiratory) and Non-Labored Respirations
GI: Soft and Non Distended
Neurology: Awake, Alert, AO x 3 and No Motor Deficits
Skin: Warm
General: Respiratory Distress (mild with conversation.)
Assessment
-
73-year-old woman with history of COPD, chronic hypoxemic and hypercapnic respiratory failure-admitted with 2 weeks worth of shortness of breath, increased phlegm production.
Chest x-ray was clear. She was found to be mildly hypoxemic on room air which is new for her.
She was found to be flu B+.
I was consulted for management of COPD in the setting of severe/advanced COPD
Acute exacerbation of COPD-triggered by influenza A
Acute exacerbation recently 08/2025 for influenza B
Acute on chronic hypoxemic respiratory sufficiently 4 L supplemental
Chest x-ray: 10/01/2025 with subtle interstitial changes in both bases. No pleural effusions or pneumothorax.
Conditions present prior admission:
Severe COPD with chronic hypoxemic/ hypercapnic respiratory failure
ABG 07/22/2024: 7.39/54/54
Fibromyalgia
Polymyalgia rheumatica-chronic prednisone therapy 10 mg
Migraine headaches
Anxiety/depression
Diverticulosis
Polymyalgia rheumatica
Hypercholesterolemia
History of breast cancer on the right-status postlumpectomy 11/13/2024
Right breast biopsy 09/2024
Zenker diverticulectomy
Tobacco abuse
Assessment and plan:
COPD exacerbation likely triggered by influenza A.
Chest x-ray with minimal bibasilar abnormalities.
Hypoxemic respiratory failure requiring slightly increased oxygen compared to baseline.
Mildly bronchospastic on exam.
-
Initially with leukocytosis now resolved.
Remains afebrile
-
Agree with current management including:
Continue IV corticosteroid (usually chronically on 10 mg of prednisone)
DuoNebs/Pulmicort daily while in the hospital
Restart inhalers upon discharge-Trelegy.
Ohtuvayre to restart at DC
Not unreasonable to give 5 days of azithromycin given minimal bibasilar infiltrates.
Tamiflu complete total of 5 days
Will continue to monitor fever curve.
-
In the outpatient setting started on process to approve Nucala.
Previously patient had peripheral eosinophilia but with chronic steroids now down to 0.
-
Continue oxygen supplementation to maintain pulse ox above 90%. Patient does have oxygen supplementation at home.
Encourage incentive spirometry
Increase activity as able
Isolation per protocol
-
Depending on clinical situation may consider starting nocturnal BiPAP while in the hospital. She has at home but not using consistently.
Mental status at baseline.
-
Last appoint 08/2025: Maximal medical therapy. Trelegy/chronic prednisone 10 mg/low-dose macrolide therapy for anti-inflammatory properties/Ohtuvayre/vest therapy which she is not using frequently.
Completed pulmonary rehabilitation.
Noninvasive mechanical ventilation at night intermittently for chronic hypercapnia.
Last walking test without exertional oxygen requirements.
Last low-dose radiation CAT scan without lung nodules.
Nucala approval started.
-
Will follow
[2025-10-02] MEDS: PERCOCET 5/325 1 TABLET PO ×2 (13:11→22:43)
[2025-10-02 15:14] VITALS: BP 111/73
--- NOTE | 2025-10-02 15:32 | CM ---
Addendum entered by Henna Dominguez 10/02/25 15:56:
PCP: Dr Alcala
Pharmacy: [facility]
Original Note:
Patient seen bedside.
IA completed.
Patient lives alone, has a NIV and home oxygen 2 liters prn thru [employer].
Patient independent prior to admission without assistive devices.
Has a nebulizer, no othr equipment.
No VN.
Patient has trabsoirtation home ad has her oxygen with her.
Denies insecurities.
Plan: home no needs anticiapted.
[2025-10-02] MEDS: LOVENOX 40 MG SC (17:18)
[2025-10-02 19:27] VITALS: BP 134/81
[2025-10-02 22:36] VITALS: BP 118/67
[2025-10-02] MEDS: AMBIEN 10 MG PO (23:42)
--- NOTE | 2025-10-03 01:54 | PTCARENOTE ---
Pt's O2 sitting at 88%-90% while on 4L NC. Pts O2 increased to 5L and O2 is 93%-95%. Will continue POC.
[2025-10-03 03:35] VITALS: BP 113/74
[2025-10-03] MEDS: DECADRON 4 MG IV ×2 (06:11→14:01)
[2025-10-03] MEDS: DUONEB 3 ML INH ×4 (07:08→17:55)
[2025-10-03] MEDS: SYMBICORT 160/4.5 MCG INHALER 2 PUFF INH ×2 (07:08→17:55)
[2025-10-03] MEDS: SPIRIVA RESPIMAT 2.5 MCG 2 PUFF INH (07:08)
[2025-10-03 08:00] VITALS: BP 138/71
[2025-10-03] MEDS: TAMIFLU 75 MG PO ×2 (08:00→21:01)
[2025-10-03] MEDS: MUCINEX 600 MG PO ×2 (08:01→21:01)
[2025-10-03] MEDS: CARDIZEM CD 120 MG PO (08:05)
[2025-10-03] MEDS: ZITHROMAX 250 MG PO (08:05)
[2025-10-03 09:55] LABS: Hematocrit 37.0 % (37.0-47.0); Hemoglobin 12.2 g/dL (12.0-16.0); Mean Corp Hgb Conc. 33.0 g/dL (33.0-37.0); Mean Corpuscular Volume 96.6 fL (81.0-99.0); Platelet Count 321 10^3/uL (130-400); Red Cell Dist. Width 11.6 % (11.5-14.5)
[2025-10-03 10:27] LABS: ALT (SGPT) 18 U/L (0-35); AST (SGOT) 19 U/L (14-36); Albumin 3.7 g/dl (3.5-5.0); Alkaline Phosphatase 51 U/L (38-126); Blood Urea Nitrogen 16 mg/dl (7-17); Calcium 9.2 mg/dl (8.4-10.2); Chloride 93 mmol/L (98-107); Estimated Creatinine Clearance 75 ml/min; Glucose 118 mg/dl (70-99); Potassium 4.5 mmol/L (3.5-5.1); Sodium 136 mmol/L (135-145); Total Protein 6.2 g/dl (6.3-8.2); eGFR > 60.00
[2025-10-03 11:07] VITALS: BP 140/80
[2025-10-03 12:11] LABS: Carbon Dioxide 36 mmol/L (22-30)
--- NOTE | 2025-10-03 12:26 | W.PN.PUL3 ---
Today's Communication / Plan
-
Remains on Tamiflu, IV steroids
Supportive care, symptomatic management
She does not feel improved yet, will wait to transition to oral course in next 24 hours
Remains in isolation, we discussed outpatient vaccination and masking in public
Will need outpatient follow-up postdischarge
Assessment
-
73-year-old woman with history of COPD, chronic hypoxemic and hypercapnic respiratory failure-admitted with 2 weeks worth of shortness of breath, increased phlegm production. Chest x-ray was clear. She was found to be mildly hypoxemic on room air
which is new for her. She was found to be flu B+. I was consulted for management of COPD in the setting of severe/advanced COPD.
Acute exacerbation of COPD-triggered by influenza A
Acute exacerbation recently 08/2025 for influenza B
Acute on chronic hypoxemic respiratory sufficiently 4 L supplemental
Chest x-ray: 10/01/2025 with subtle interstitial changes in both bases. No pleural effusions or pneumothorax.
Conditions present prior admission:
Severe COPD with chronic hypoxemic/ hypercapnic respiratory failure
ABG 07/22/2024: 7.39/54/54
Fibromyalgia
Polymyalgia rheumatica-chronic prednisone therapy 10 mg
Migraine headaches
Anxiety/depression
Diverticulosis
Polymyalgia rheumatica
Hypercholesterolemia
History of breast cancer on the right-status postlumpectomy 11/13/2024
Right breast biopsy 09/2024
Zenker diverticulectomy
Tobacco abuse
Plan
COPD exacerbation likely triggered by influenza A.
Chest x-ray with minimal bibasilar abnormalities.
Hypoxemic respiratory failure requiring slightly increased oxygen compared to baseline.
Mildly bronchospastic on exam.
-
Initially with leukocytosis now resolved.
Remains afebrile
-
Agree with current management including:
Continue IV corticosteroid (usually chronically on 10 mg of prednisone)--she does not feel improvement for us to transition yet
DuoNebs/Pulmicort daily while in the hospital
Restart inhalers upon discharge-Trelegy.
Ohtuvayre to restart at DC
Not unreasonable to give 5 days of azithromycin given minimal bibasilar infiltrates.
Tamiflu complete total of 5 days
Will continue to monitor fever curve.
-
In the outpatient setting started on process to approve Nucala.
Previously patient had peripheral eosinophilia but with chronic steroids now down to 0.
-
Continue oxygen supplementation to maintain pulse ox above 90%. Patient does have oxygen supplementation at home.
Encourage incentive spirometry
Increase activity as able
Isolation per protocol
-
Depending on clinical situation may consider starting nocturnal BiPAP while in the hospital. She has at home but not using consistently.
Mental status at baseline.
-
Last appoint 08/2025: Maximal medical therapy. Trelegy/chronic prednisone 10 mg/low-dose macrolide therapy for anti-inflammatory properties/Ohtuvayre/vest therapy which she is not using frequently.
Completed pulmonary rehabilitation.
Noninvasive mechanical ventilation at night intermittently for chronic hypercapnia.
Last walking test without exertional oxygen requirements.
Last low-dose radiation CAT scan without lung nodules.
Nucala approval started.
-
Will follow
Total time spent on this consultation/encounter __51__ minutes which includes review of history, physical exam, medications, laboratory data, personal review of imaging, extensive review of outpatient records, discussion with care team and
respiratory therapy.
Subjective Data
-
Date of Service:
Date of Service: October 03, 2025
Chief Complaint: Pulmonary Follow Up
Subjective:
Still feels shortness of breath and chest tightness, fatigue
She does not feel improved
Objective Data
Data Reviewed
Vital Signs / I&O / Oxygen:
Vital Signs
Temp Pulse Resp BP Pulse Ox
98.0 F 86 18 140/80 93
10/03/25 11:07 10/03/25 11:19 10/03/25 11:19 10/03/25 11:07 10/03/25 11:19
SaO2 93
Nasal Cannula flow liters per 4
minute
Physical Exam
General: Comfortable and Other (NAD)
HEENT: Normocephalic, Anicteric and Moist Mucous Membranes
Cardiovascular: S1-S2 and Regular Rhythm
Respiratory: Clear ( poor air movement) and Non-Labored Respirations
GI: Soft, Non Distended and Non Tender
Neurology: Awake, Alert, Oriented and No Motor Deficits
Skin: Warm, Dry and Good Color
Labs/Micro/Reports
Lab Data
10/03/25 08:16
10/03/25 08:16
Microbiology
10/01/25 16:49 Nasal Swab Influenza Types A & B (CATRACHO) - Final
Influenza A Positive, NAAT
[2025-10-03] MEDS: FLUSH (NSS) 2 FLUSH IV (14:02)
--- NOTE | 2025-10-03 14:28 | W.PN.HOSP.TC ---
Today's Communication/Plan
-
Wean oxygen as tolerated
Slow taper of steroids
Continue Tamiflu
Assessment / Plan
Assessment / Plan
69-year-old female with shortness of breath
Patient awake and alert
Cardiovascular system heart sounds S1-2 appreciated
Bilateral decreased breath sounds, few scattered bases
No pedal edema
# Acute hypoxic respiratory failure secondary to influenza and COPD exacerbation
On Tamiflu.
Patient is on daily Zithromax-continue
Started on IV steroids for COPD exacerbation
We can Continue Trelegy Ellipta and Ohtuvayre( needs to bring from home)
Continue mucolytic's
Wean oxygen as tolerated
Pulmonary has been consulted and following
# Hypertension-continue Cardizem
# Insomnia-continue Ambien as needed
# History of migraines
# History of right breast cancer with history of lumpectomy chemo and radiation-follows with Dr. Bae
# Fibromyalgia/osteoarthritis
# Polymyalgia rheumatica on low-dose of prednisone
# Ex Smoker-. Vaping continues ? -cessation counseling
# History of Zenker's diverticulum with surgery in the past
# Diverticulosis
# DVT prophylaxis-Lovenox
# Full code
Part of this note was created using voice recognition system. Occasional wrong word or��sound alike� substitutions may have inadvertently occurred due to the inherent limitations of voice recognition software. If noted kindly bring it to my
attention for correction.
Anticipated Discharge: > 48 hours
Subjective/Interval History
-
Date of Service: October 03, 2025
Objective Data
-
Labs:
Laboratory Results
10/03/25
08:16
WBC 14.0 H
Hgb 12.2
Hct 37.0
Plt Count 321
Sodium 136
Potassium 4.5
Chloride 93 L
Carbon Dioxide 36 H
BUN 16
Creatinine 0.6
Glucose 118 H
Calcium 9.2
Total Bilirubin 0.3
AST 19
ALT 18
Alkaline Phosphatase 51
Vital Signs:
Vital Signs
Temp Pulse Resp BP Pulse Ox
98.0 F 86 18 140/80 93
10/03/25 11:07 10/03/25 11:19 10/03/25 11:19 10/03/25 11:07 10/03/25 11:19
[2025-10-03 14:55] VITALS: BP 125/70
[2025-10-03 16:44] VITALS: BP 127/71
[2025-10-03] MEDS: PERCOCET 5/325 1 TABLET PO (16:45)
[2025-10-03] MEDS: LOVENOX SC (16:46)
[2025-10-03 20:08] VITALS: BP 119/71
[2025-10-03] MEDS: DECADRON 3 MG IV (21:02)
[2025-10-03] MEDS: AMBIEN 10 MG PO (23:43)
[2025-10-04] VITALS (7 sets, daily range): BP systolic 107–141; BP diastolic 65–78; BMI 21.0
[2025-10-04 05:45] LABS: Hematocrit 33.2 % (37.0-47.0); Hemoglobin 11.1 g/dL (12.0-16.0); Mean Corp Hgb Conc. 33.4 g/dL (33.0-37.0); Mean Corpuscular Volume 93.8 fL (81.0-99.0); Platelet Count 286 10^3/uL (130-400); Red Cell Dist. Width 11.6 % (11.5-14.5)
[2025-10-04 06:12] LABS: ALT (SGPT) 19 U/L (0-35); AST (SGOT) 25 U/L (14-36); Albumin 3.2 g/dl (3.5-5.0); Alkaline Phosphatase 30 U/L (38-126); Blood Urea Nitrogen 15 mg/dl (7-17); Calcium 8.8 mg/dl (8.4-10.2); Chloride 94 mmol/L (98-107); Estimated Creatinine Clearance 75 ml/min; Glucose 126 mg/dl (70-99); Potassium 5.2 mmol/L (3.5-5.1); Sodium 135 mmol/L (135-145); Total Protein 5.7 g/dl (6.3-8.2); eGFR > 60.00
[2025-10-04] MEDS: DECADRON 3 MG IV ×2 (06:31→13:18)
[2025-10-04 06:37] LABS: Carbon Dioxide 40 mmol/L (22-30)
[2025-10-04] MEDS: SYMBICORT 160/4.5 MCG INHALER 2 PUFF INH ×2 (07:34→19:58)
[2025-10-04] MEDS: DUONEB INH (07:34)
[2025-10-04] MEDS: SPIRIVA RESPIMAT 2.5 MCG 2 PUFF INH (07:34)
[2025-10-04] MEDS: TAMIFLU 75 MG PO ×2 (08:14→21:28)
[2025-10-04] MEDS: MUCINEX 600 MG PO ×2 (08:14→21:28)
[2025-10-04] MEDS: CARDIZEM CD 120 MG PO (08:17)
[2025-10-04] MEDS: ZITHROMAX 250 MG PO (08:17)
[2025-10-04] MEDS: VENTOLIN NEBULES 2.5 MG INH ×3 (11:12→19:58)
--- NOTE | 2025-10-04 11:48 | W.PN.PUL3 ---
Today's Communication / Plan
-
No clinical improvement, remains on IV steroids
I will lower the dose and await transition to p.o. when patient improving
She is continued on Tamiflu with supportive care
Encouraged out of bed as tolerated
Assessment
-
73-year-old woman with history of COPD, chronic hypoxemic and hypercapnic respiratory failure-admitted with 2 weeks worth of shortness of breath, increased phlegm production. Chest x-ray was clear. She was found to be mildly hypoxemic on room air
which is new for her. She was found to be flu B+. I was consulted for management of COPD in the setting of severe/advanced COPD.
Acute exacerbation of COPD-triggered by influenza A
Acute exacerbation recently 08/2025 for influenza B
Acute on chronic hypoxemic respiratory sufficiently 4 L supplemental
Chest x-ray: 10/01/2025 with subtle interstitial changes in both bases. No pleural effusions or pneumothorax.
Conditions present prior admission:
Severe COPD with chronic hypoxemic/ hypercapnic respiratory failure
ABG 07/22/2024: 7.39/54/54
Fibromyalgia
Polymyalgia rheumatica-chronic prednisone therapy 10 mg
Migraine headaches
Anxiety/depression
Diverticulosis
Polymyalgia rheumatica
Hypercholesterolemia
History of breast cancer on the right-status postlumpectomy 11/13/2024
Right breast biopsy 09/2024
Zenker diverticulectomy
Tobacco abuse
Plan
COPD exacerbation likely triggered by influenza A.
Chest x-ray with minimal bibasilar abnormalities.
Hypoxemic respiratory failure requiring slightly increased oxygen compared to baseline.
Mildly bronchospastic on exam.
-
Initially with leukocytosis now resolved.
Remains afebrile
-
Agree with current management including:
Continue IV corticosteroid (usually chronically on 10 mg of prednisone)--she does not feel improvement for us to transition yet, will lower dose again today
DuoNebs/Pulmicort daily while in the hospital
Restart inhalers upon discharge-Trelegy.
Ohtuvayre to restart at DC
Not unreasonable to give 5 days of azithromycin given minimal bibasilar infiltrates.
Tamiflu complete total of 5 days
Will continue to monitor fever curve.
-
In the outpatient setting started on process to approve Nucala.
Previously patient had peripheral eosinophilia but with chronic steroids now down to 0.
-
Continue oxygen supplementation to maintain pulse ox above 90%. Patient does have oxygen supplementation at home.
Encourage incentive spirometry
Increase activity as able
Isolation per protocol
-
Depending on clinical situation may consider starting nocturnal BiPAP while in the hospital. She has at home but not using consistently.
Mental status at baseline.
-
Last appoint 08/2025: Maximal medical therapy. Trelegy/chronic prednisone 10 mg/low-dose macrolide therapy for anti-inflammatory properties/Ohtuvayre/vest therapy which she is not using frequently.
Completed pulmonary rehabilitation.
Noninvasive mechanical ventilation at night intermittently for chronic hypercapnia.
Last walking test without exertional oxygen requirements.
Last low-dose radiation CAT scan without lung nodules.
Nucala approval started.
-
Will follow
Total time spent on this consultation/encounter __51__ minutes which includes review of history, physical exam, medications, laboratory data, personal review of imaging, extensive review of outpatient records, discussion with care team and
respiratory therapy.
Subjective Data
-
Date of Service:
Date of Service: October 04, 2025
Chief Complaint: Pulmonary Follow Up
Subjective:
Feels no differently today
Objective Data
Data Reviewed
Vital Signs / I&O / Oxygen:
Vital Signs
Temp Pulse Resp BP Pulse Ox
98.2 F 100 20 119/65 94
10/04/25 08:02 10/04/25 11:14 10/04/25 11:14 10/04/25 08:17 10/04/25 11:14
Intake and Output
10/03/25 10/04/25 10/05/25
06:59 06:59 06:59
Intake Total 400 / 400
Balance 400 / 400
SaO2 94
Nasal Cannula flow liters per 4
minute
Physical Exam
General: Comfortable and Other (NAD)
HEENT: Normocephalic, Anicteric and Moist Mucous Membranes
Cardiovascular: S1-S2 and Regular Rhythm
Respiratory: Clear ( poor air movement) and Non-Labored Respirations
GI: Soft, Non Distended and Non Tender
Neurology: Awake, Alert, Oriented and No Motor Deficits
Skin: Warm, Dry and Good Color
Labs/Micro/Reports
Lab Data
10/04/25 05:04
10/04/25 05:04
Microbiology
10/01/25 16:49 Nasal Swab Influenza Types A & B (CATRACHO) - Final
Influenza A Positive, NAAT
--- NOTE | 2025-10-04 12:28 | W.PN.HOSP.TC ---
Today's Communication/Plan
-
Continue with steroids
Wean oxygen as tolerated
Assessment / Plan
Assessment / Plan
69-year-old female with shortness of breath
Patient awake and alert
Cardiovascular system heart sounds S1-2 appreciated
Bilateral decreased breath sounds, few scattered bases
No pedal edema
# Acute hypoxic respiratory failure secondary to influenza and COPD exacerbation
On Tamiflu.
Patient is on daily Zithromax-continue
Started on IV steroids for COPD exacerbation
Still remains on 4 L of oxygen-wean as tolerated
We can Continue Trelegy Ellipta and Ohtuvayre( needs to bring from home)
Continue mucolytic's
Wean oxygen as tolerated
Pulmonary has been consulted and following-appreciate
# Hypertension-continue Cardizem
# Insomnia-continue Ambien as needed
# History of migraines
# History of right breast cancer with history of lumpectomy chemo and radiation-follows with Dr. Bae
# Fibromyalgia/osteoarthritis
# Polymyalgia rheumatica on low-dose of Prednisone
# Ex Smoker. No vaping per pt.
# History of Zenker's diverticulum with surgery in the past
# Diverticulosis
# DVT prophylaxis-Lovenox
# Full code
Called son Mark and updated.
D/W RN
Part of this note was created using voice recognition system. Occasional wrong word or��sound alike� substitutions may have inadvertently occurred due to the inherent limitations of voice recognition software. If noted kindly bring it to my
attention for correction.
Anticipated Discharge: 24 - 48 hours
Subjective/Interval History
-
Date of Service: October 04, 2025
Objective Data
-
Labs:
Laboratory Results
10/04/25
05:04
WBC 11.7 H
Hgb 11.1 L
Hct 33.2 L
Plt Count 286
Sodium 135
Potassium 5.2 H
Chloride 94 L
Carbon Dioxide 40 H
BUN 15
Creatinine 0.5 L
Glucose 126 H
Calcium 8.8
Total Bilirubin 0.4
AST 25
ALT 19
Alkaline Phosphatase 30 L
Vital Signs:
Vital Signs
Temp Pulse Resp BP Pulse Ox
98.2 F 100 20 119/65 94
10/04/25 08:02 10/04/25 11:14 10/04/25 11:14 10/04/25 08:17 10/04/25 11:14
I&O
10/03/25 10/04/25 10/05/25
06:59 06:59 06:59
Intake Total 400 / 400
Balance 400 / 400
[2025-10-04] MEDS: PROTONIX 40 MG PO (13:17)
[2025-10-04] MEDS: PERCOCET 5/325 1 TABLET PO (15:26)
[2025-10-04] MEDS: LOVENOX SC (17:19)
--- NOTE | 2025-10-04 18:24 | PTCARENOTE ---
patient feels the same today, still so with exertion. weaned to 3l NC this am and then 4L NC this afternoon due to increased sob with brushing teeth, Percocet effective for c/o 'lumbar pain', tolerating diet, vss, will continue to monitor.
--- NOTE | 2025-10-04 18:50 | RESPNOTE ---
Patient refused acapella device.
[2025-10-04] MEDS: AMBIEN 10 MG PO (23:52)
[2025-10-05] MEDS: DECADRON 4 MG IV ×2 (02:00→15:24)
[2025-10-05 03:00] VITALS: BP 121/72
[2025-10-05] MEDS: SYMBICORT 160/4.5 MCG INHALER 2 PUFF INH ×2 (07:15→20:17)
[2025-10-05] MEDS: VENTOLIN NEBULES 2.5 MG INH ×4 (07:15→20:17)
[2025-10-05] MEDS: SPIRIVA RESPIMAT 2.5 MCG 2 PUFF INH (07:15)
[2025-10-05 07:45] VITALS: BP 127/76
[2025-10-05] MEDS: ZITHROMAX 250 MG PO (07:46)
[2025-10-05] MEDS: TAMIFLU 75 MG PO ×2 (07:47→21:18)
[2025-10-05] MEDS: CARDIZEM CD 120 MG PO (07:47)
[2025-10-05] MEDS: PROTONIX 40 MG PO (07:47)
[2025-10-05] MEDS: MUCINEX 600 MG PO ×2 (07:47→21:18)
--- NOTE | 2025-10-05 08:18 | W.PN.HOSP.TC ---
Addendum entered and electronically signed by Aliyah Tubbs MD 10/05/25 14:00:
Seen and examined the patient with the resident. Agree with the plan formulated with her. See changes in my documentation
69-year-old female with shortness of breath
Patient awake and alert
Cardiovascular system heart sounds S1-2 appreciated
Bilateral decreased breath sounds, few scattered rales
No pedal edema
# Acute hypoxic respiratory failure secondary to influenza and COPD exacerbation
On Tamiflu.
Patient is on daily Zithromax-continue
Started on IV steroids for COPD exacerbation
We can Continue Trelegy Ellipta and Ohtuvayre( needs to bring from home)
Continue mucolytic's
Wean oxygen as tolerated- on 5 L now
Repeat chest x-ray ordered
Pulmonary has been consulted
Patient has not had flu shot. Advised importance of getting flu shot discussed that it can be life-threatening sometimes when you get infection
# Hypertension-continue Cardizem
# Insomnia-continue Ambien as needed
# History of migraines
# History of right breast cancer with history of lumpectomy chemo and radiation-follows with Dr. Bae
# Fibromyalgia/osteoarthritis
# Polymyalgia rheumatica on low-dose of prednisone
# Ex Smoker- Vaping continues occasionally-cessation counseling
# History of Zenker's diverticulum with surgery in the past
# Diverticulosis
# DVT prophylaxis-Lovenox
# Full code
Part of this note was created using voice recognition system. Occasional wrong word or��sound alike� substitutions may have inadvertently occurred due to the inherent limitations of voice recognition software. If noted kindly bring it to my
attention for correction.
Original Note:
Today's Communication/Plan
-
Chest x-ray
Wean O2 as able
Assessment / Plan
Assessment / Plan
Impression:
69-year-old with past medical history for COPD, fibromyalgia, chronic pain presented to the ED with increased coughing and shortness of breath for the past 5 days. She is on 1-2L O2 for episodes of exertion as needed, however the last 5 days she
been on oxygen continuously. She was brought in by EMS requiring 4L O2 and received 10mg IV Decadron. She was found to be influenza positive. Chest x-ray revealed subtle bibasilar pneumonitis versus mild interstitial edema. She was given IV
Decadron, nebulizers and started on Tamiflu. She is admitted to the floors for further workup. She started to improve however on 10/05/2025, her oxygen requirements increased from 4 to 6 L. A chest x-ray was ordered to rule out possible pneumonia.
Plan:
Acute hypoxemic respiratory failure secondary to COPD exacerbation triggered by influenza A
-- Chest x-ray revealed subtle bibasilar pneumonitis versus mild interstitial edema
-- IV steroids - Pulm decreased decadron 4 IV q8 hr to q12 hours
-- Azithromycin
-- DuoNebs
-- Budesonide, spiriva
-- Tamiflu day 5
-- Guaifenesin
-- Continue supplemental oxygen as needed to keep O2 >90%
-- Pulmonology consulted
-- O2 requirements increased from 4 to 6L this am after she used the restroom - chest x-ray to make sure we are not missing a developing pneumonia
Atrial tachycardia
-- Continue diltiazem
Fibromyalgia
-- As needed Percocet from home
Polymyalgia rheumatica
-- On prednisone 10 daily at home -chronic steroid use
History of breast cancer s/p lumpectomy 11/13/24, chemotherapy and radiation
-- Follows with Dr. Bae
Insomnia
Osteoarthritis
Diverticulosis
Headaches
Zenker diverticulum
Cervical stenosis
Migraines
Hyperlipidemia
Full Code
DVT Lovenox
Anticipated Discharge: 24 - 48 hours
Subjective/Interval History
-
Date of Service: October 05, 2025
When I walked into the patient's room, she just got back from the restroom and was in respiratory distress satting at 79%. I increased her oxygen from 4 L to 6 L which she improved to 92%. Otherwise no complaints.
Objective Data
-
Labs:
Laboratory Results
10/05/25
07:29
WBC Pending
Hgb Pending
Hct Pending
Plt Count Pending
Sodium Pending
Potassium Pending
Chloride Pending
Carbon Dioxide Pending
BUN Pending
Creatinine Pending
Glucose Pending
Calcium Pending
Total Bilirubin Pending
AST Pending
ALT Pending
Alkaline Phosphatase Pending
Vital Signs:
Vital Signs
Temp Pulse Resp BP Pulse Ox
97.8 F 108 22 127/76 91
10/05/25 07:45 10/05/25 07:47 10/05/25 07:45 10/05/25 07:47 10/05/25 07:45
I&O
10/04/25 10/05/25 10/06/25
06:59 06:59 06:59
Intake Total 400 / 400 480 / 480
Balance 400 / 400 480 / 480
Review of Systems
-
History Source: Patient
Respiratory: Reports Cough, Trouble Breathing and Wheezing
Cardiac: Reports No Symptoms
Abdomen/GI: Reports No Symptoms
Genitourinary: Reports No Symptoms
Skin: Reports No Symptoms
Neuro: Reports No Symptoms
Physical Exam
-
General: Respiratory Distress
HEENT: Normocephalic
Respiratory: Wheezes (Right upper lobe ) and Decreased Breath Sounds
Cardiac: Regular Rhythm and S1/S2
GI: Soft, Nontender, Nondistended and Normal Bowel Sounds
Musculoskeletal: No Cyanosis and No Edema
Skin: Warm and Dry
Neuro: AO x 3
[2025-10-05 08:32] LABS: Hematocrit 34.9 % (37.0-47.0); Hemoglobin 11.6 g/dL (12.0-16.0); Mean Corp Hgb Conc. 33.2 g/dL (33.0-37.0); Mean Corpuscular Volume 92.8 fL (81.0-99.0); Platelet Count 324 10^3/uL (130-400); Red Cell Dist. Width 11.6 % (11.5-14.5)
--- NOTE | 2025-10-05 08:50 | W.PN.PUL.V3 ---
Today's Communication / Plan
-
.
Decadron-hope to change to prednisone in the next 24 hours with slow taper.
Continue inhalers and nebulizers.
Azithromycin.
Tamiflu.
Wean oxygen.
Increased activity
Assessment
-
73-year-old woman with history of COPD, chronic hypoxemic and hypercapnic respiratory failure-admitted with 2 weeks worth of shortness of breath, increased phlegm production. Chest x-ray was clear. She was found to be mildly hypoxemic on room air
which is new for her. She was found to be flu B+. I was consulted for management of COPD in the setting of severe/advanced COPD.
Acute exacerbation of COPD-triggered by influenza A
Acute exacerbation recently 08/2025 for influenza B
Acute on chronic hypoxemic respiratory sufficiently 4 L supplemental
Chest x-ray: 10/01/2025 with subtle interstitial changes in both bases. No pleural effusions or pneumothorax.
Conditions present prior admission:
Severe COPD with chronic hypoxemic/ hypercapnic respiratory failure
ABG 07/22/2024: 7.39/54/54
Fibromyalgia
Polymyalgia rheumatica-chronic prednisone therapy 10 mg
Migraine headaches
Anxiety/depression
Diverticulosis
Polymyalgia rheumatica
Hypercholesterolemia
History of breast cancer on the right-status postlumpectomy 11/13/2024
Right breast biopsy 09/2024
Zenker diverticulectomy
Tobacco abuse
Plan
COPD exacerbation likely triggered by influenza A.
Chest x-ray with minimal bibasilar abnormalities.
Hypoxemic respiratory failure requiring slightly increased oxygen compared to baseline.
CT chest low-dose without nodule
Respiratory status slowly improving-still with some wheezes.
Supplemental oxygen as needed.
Process discharge supplemental oxygen needs.
Continue albuterol nebulizers.
Symbicort and Spiriva. Continue
Decadron 4 mg IV every 12 hours-consider changing to prednisone 40-50 mg daily in the next 24 hours if continues to improve
Patient normally on prednisone 10 mg daily.
Ohtuvayre to restart the time of discharge.
Trelegy to restart at time of discharge.
Nucala to start at the time of discharge-this is once monthly, however, next year there is a every 6 month infusion that will be available.
BiPAP as needed
Check cultures.
Azithromycin continues
Tamiflu continues
Isolation per protocol
Follow leukocytosis
DVT prophylaxis-on Lovenox.
Nutrition
Early mobilization.
Outpatient follow-up with Dr. Lunsford
Last appoint 08/2025: Maximal medical therapy. Trelegy/chronic prednisone 10 mg/low-dose macrolide therapy for anti-inflammatory properties/Ohtuvayre/vest therapy which she is not using frequently.
Completed pulmonary rehabilitation.
Noninvasive mechanical ventilation at night intermittently for chronic hypercapnia.
Subjective Data
-
Date of Service:
Date of Service: October 05, 2025
Chief Complaint: Pulmonary Follow Up
Subjective:
No complaints of worsening shortness of breath, chest pain, abdominal pain
Review of Systems
General: Other ( per HPI)
Objective Data
Data Reviewed
Vital Signs / I&O:
Vital Signs
Temp Pulse Resp BP Pulse Ox
97.8 F 108 22 127/76 91
10/05/25 07:45 10/05/25 07:47 10/05/25 07:45 10/05/25 07:47 10/05/25 07:45
Intake and Output
10/04/25 10/05/25 10/06/25
06:59 06:59 06:59
Intake Total 400 / 400 480 / 480
Balance 400 / 400 480 / 480
SaO2: 91
Nasal Cannula flow liters per minute: 3
Physical Exam
General: Comfortable and Other (NAD)
HEENT: Normocephalic, Anicteric and Moist Mucous Membranes
Cardiovascular: Regular Rhythm
Respiratory: Wheeze and Non-Labored Respirations
GI: Soft, Non Distended and Non Tender
Neurology: Awake, Alert and No Motor Deficits
Skin: Warm, Dry, Good Color, Cyanosis (n) and Jaundice (n)
Labs/Micro/Reports
Lab Data
10/05/25 07:29
[2025-10-05 09:01] LABS: ALT (SGPT) 21 U/L (0-35); AST (SGOT) 23 U/L (14-36); Albumin 3.5 g/dl (3.5-5.0); Alkaline Phosphatase 43 U/L (38-126); Blood Urea Nitrogen 16 mg/dl (7-17); Calcium 9.1 mg/dl (8.4-10.2); Chloride 92 mmol/L (98-107); Estimated Creatinine Clearance 75 ml/min; Glucose 115 mg/dl (70-99); Potassium 5.0 mmol/L (3.5-5.1); Sodium 137 mmol/L (135-145); Total Protein 5.8 g/dl (6.3-8.2); eGFR > 60.00
[2025-10-05 09:10] LABS: Carbon Dioxide 38 mmol/L (22-30)
[2025-10-05 10:03] VITALS: BP 134/69; PULSE 93; O2SAT 93
[2025-10-05 14:02] VITALS: BMI 21.0
--- NOTE | 2025-10-05 15:25 | CM ---
patient seen at bedside
10/01- influenza A
PT rec home health
options reviewed - prefers [facility]
Notified [facility] liaison, referral to be entered in [facility]
patient given resources for [facility] per her request
PLAN: Home with [facility] when stable
--- NOTE | 2025-10-05 15:44 | VNURNOTE ---
Home Health Liaison spoke with patient to discuss [facility] nurse/therapy, visits, schedule and homebound status. Patient is agreeable and understands that visits at home will be 2-3 x per week to assess and teach medical management.
Patient is aware that [facility] will contact them for start of care within a week after discharge from . Offered to provide contact number for [facility]- pt declined.
[facility] referral completed in [facility].
[2025-10-05 16:18] VITALS: BP 110/60
[2025-10-05] MEDS: LOVENOX SC (17:08)
[2025-10-05] MEDS: PERCOCET 5/325 1 TABLET PO (21:20)
[2025-10-05 23:26] VITALS: BP 136/90
[2025-10-06] MEDS: AMBIEN 10 MG PO ×2 (00:04→23:02)
[2025-10-06] MEDS: DECADRON 4 MG IV ×2 (02:04→13:06)
[2025-10-06 06:37] LABS: Hematocrit 34.7 % (37.0-47.0); Hemoglobin 11.7 g/dL (12.0-16.0); Mean Corp Hgb Conc. 33.7 g/dL (33.0-37.0); Mean Corpuscular Volume 94.6 fL (81.0-99.0); Nucleated Red Blood Cells % 0 %; Platelet Count 316 10^3/uL (130-400); Red Cell Dist. Width 11.4 % (11.5-14.5)
[2025-10-06 06:55] LABS: ALT (SGPT) 22 U/L (0-35); AST (SGOT) 21 U/L (14-36); Albumin 3.4 g/dl (3.5-5.0); Alkaline Phosphatase 40 U/L (38-126); Blood Urea Nitrogen 17 mg/dl (7-17); Calcium 9.1 mg/dl (8.4-10.2); Chloride 90 mmol/L (98-107); Estimated Creatinine Clearance 75 ml/min; Glucose 133 mg/dl (70-99); Potassium 5.2 mmol/L (3.5-5.1); Sodium 135 mmol/L (135-145); Total Protein 5.6 g/dl (6.3-8.2); eGFR > 60.00
[2025-10-06 07:30] VITALS: BP 118/70
[2025-10-06] MEDS: SPIRIVA RESPIMAT 2.5 MCG 2 PUFF INH (07:36)
[2025-10-06] MEDS: VENTOLIN NEBULES 2.5 MG INH ×4 (07:36→20:51)
[2025-10-06] MEDS: SYMBICORT 160/4.5 MCG INHALER 2 PUFF INH ×2 (07:36→20:51)
[2025-10-06 07:46] LABS: Carbon Dioxide 44 mmol/L (22-30)
[2025-10-06] MEDS: MUCINEX 600 MG PO ×2 (08:51→19:57)
[2025-10-06] MEDS: PROTONIX 40 MG PO (08:52)
[2025-10-06] MEDS: TAMIFLU 75 MG PO (08:52)
[2025-10-06] MEDS: ZITHROMAX 250 MG PO (08:52)
[2025-10-06] MEDS: CARDIZEM CD 120 MG PO (08:52)
--- NOTE | 2025-10-06 09:25 | W.PN.HOSP.TC ---
Addendum entered and electronically signed by Aliyah Tubbs MD 10/06/25 14:32:
Seen and examined the patient with the resident. Agree with the plan formulated with her. See changes in my documentation
Seen earlier. Late documentation
69-year-old female with shortness of breath
Patient awake and alert
Cardiovascular system heart sounds S1-2 appreciated
Bilateral decreased breath sounds, few scattered rales
No pedal edema
Repeat chest [id number] right lower lobe and new mid left lower lobe findings atelectasis developing pneumonia pneumonia cannot be excluded.
Patient had GI discomfort after taking doxycycline
# Acute hypoxic respiratory failure secondary to influenza and COPD exacerbation
Possible developing pneumonia
On Tamiflu.
Patient is on daily Zithromax-hold that
Started on IV steroids for COPD exacerbation
We can Continue Trelegy Ellipta and Ohtuvayre( needs to bring from home)
Continue mucolytic's
Wean oxygen as tolerated- on 4 L now
Pulmonary has been consulted and following
Check an EKG and troponin to make sure no cardiac reasons.
Change doxycycline to Levaquin for
Patient has not had flu shot. Advised importance of getting flu shot discussed that it can be life-threatening sometimes when you get infection
# Dyspepsia- Continue PPI. Change Doxy to Levaquin
# Hypertension-continue Cardizem
# Insomnia-continue Ambien as needed
# History of migraines
# History of right breast cancer with history of lumpectomy chemo and radiation-follows with Dr. Bae
# Fibromyalgia/osteoarthritis
# Polymyalgia rheumatica on low-dose of prednisone as outpatient
# Ex Smoker- Vaping continues occasionally-cessation counseling
# History of Zenker's diverticulum with surgery in the past
# Diverticulosis
# DVT prophylaxis-Lovenox
# Full code
Part of this note was created using voice recognition system. Occasional wrong word or��sound alike� substitutions may have inadvertently occurred due to the inherent limitations of voice recognition software. If noted kindly bring it to my
attention for correction.
Original Note:
Today's Communication/Plan
-
Start doxycycline.
Continue steroids; consider transition to PO with improved clinical course.
Continue breathing treatments.
Goal O2 90-94%.
Assessment / Plan
Assessment / Plan
Impression:
69-year-old with past medical history for COPD, fibromyalgia, chronic pain presented to the ED with increased coughing and shortness of breath for the past 5 days. She is on 1-2L O2 for episodes of exertion as needed, however the last 5 days she
been on oxygen continuously. She was brought in by EMS requiring 4L O2 and received 10mg IV Decadron. She was found to be influenza positive. Chest x-ray revealed subtle bibasilar pneumonitis versus mild interstitial edema. She was given IV
Decadron, nebulizers and started on Tamiflu. She is admitted to the floors for further workup. She started to improve however on 10/05/2025, her oxygen requirements increased from 4 to 6 L. A chest x-ray was ordered to rule out possible
pneumonia. On 10/06 O2 req back to 4L but desats with walking.
Plan:
Acute hypoxemic respiratory failure secondary to COPD exacerbation triggered by influenza A
-- Chest x-ray (arrival) revealed subtle bibasilar pneumonitis versus mild interstitial edema
-- IV steroids - Pulm decreased decadron 4 IV q8 hr to q12 hours
-- Transition to prednisone 50mg PO daily with long taper once clinical course improves
-- Azithromycin (chronic, ppx)
-- DuoNebs
-- Budesonide, spiriva
-- Final day of Tamiflu
-- Guaifenesin
-- Continue supplemental oxygen as needed to keep O2 >90%; Wean to goal 90-94%.
-- Appreciate Pulmonology reccs
-- Ohtuvayre to be restarted at discharge
-- Patient to follow up with pulmonology outpatient to start Nucala q-month infusions
-- CXR (10/05): Progressed right lower lobe and new mild left lower lobe findings probably atelectasis. Developing pneumonia not excluded.
-- Improving leukocytosis, afebrile, but given clinical symptoms, will start 7 day course of Doxycycline.
-- On PRN 2L NC O2 at home; may need 6MWT prior to discharge and consideration of standing home O2.
Atrial tachycardia
-- Continue diltiazem
Fibromyalgia
-- As needed Percocet from home
Polymyalgia rheumatica
-- On prednisone 10 daily at home -chronic steroid use
-- IV steroid increased for COPD as above; long taper back to prednisone 10mg outpatient
History of breast cancer s/p lumpectomy 11/13/24, chemotherapy and radiation
-- Follows with Dr. Bae
Insomnia
Osteoarthritis
Diverticulosis
Headaches
Zenker diverticulum
Cervical stenosis
Migraines
Hyperlipidemia
Full Code
DVT Lovenox
Anticipated Discharge: Within 24 hours
Subjective/Interval History
-
Date of Service: October 06, 2025
Patient notes minimal but positive improvements from yesterday. Slow improvements since admission.
Endorses wet sounding, but non-productive cough.
States that she gets short of breath when she walks to the bathroom, but otherwise no SOB.
Endorses chest tightness, but no chest pain.
Objective Data
-
Labs:
Laboratory Results
10/06/25
05:54
WBC 11.8 H
Hgb 11.7 L
Hct 34.7 L
Plt Count 316
Sodium 135
Potassium 5.2 H
Chloride 90 L
Carbon Dioxide 44 H
BUN 17
Creatinine 0.6
Glucose 133 H
Calcium 9.1
Total Bilirubin 0.2
AST 21
ALT 22
Alkaline Phosphatase 40
Vital Signs:
Vital Signs
Temp Pulse Resp BP Pulse Ox
97.9 F 92 20 118/70 97
10/06/25 07:30 10/06/25 08:52 10/06/25 07:39 10/06/25 08:52 10/06/25 07:39
I&O
10/05/25 10/06/25 10/07/25
06:59 06:59 06:59
Intake Total 480 / 480 480 / 480
Balance 480 / 480 480 / 480
CXR (09/05): Progressed right lower lobe and new mild left lower lobe findings probably atelectasis. Developing pneumonia not excluded. Clinical and laboratory correlation recommended.
Review of Systems
-
History Source: Patient
All other systems: Reviewed and negative
Constitutional: Denies Fever or Chills
Respiratory: Reports Cough (wet, but nonproductive) and Trouble Breathing (with exertion); Denies Pleurisy
Cardiac: Denies Chest Pain
Physical Exam
-
General: No Apparent Distress, Conversant and Appears Chronically Ill
HEENT: Normocephalic, Atraumatic and Moist Mucous Membranes
Respiratory: Decreased Breath Sounds (throughout)
Cardiac: Regular Rhythm and S1/S2
Musculoskeletal: No Cyanosis and No Edema
Skin: Warm
Neuro: Awake and Alert
Psych: Calm
Data Reviewed
-
Diagnostic Radiology: Image personally visualized and interpreted, Report Reviewed by me and Discussed with Patient
Labs: Labs Reviewed by me and Discussed with Patient
[2025-10-06] MEDS: VIBRAMYCIN 100 MG PO (10:56)
--- NOTE | 2025-10-06 11:04 | W.PN.PUL.V3 ---
Today's Communication / Plan
-
Wean oxygen.
Increase activity.
Finite course of antibiotics.
Tamiflu last day.
Change Decadron to prednisone in the next 24 hours
Assessment
-
73-year-old woman with history of COPD, chronic hypoxemic and hypercapnic respiratory failure-admitted with 2 weeks worth of shortness of breath, increased phlegm production. Chest x-ray was clear. She was found to be mildly hypoxemic on room air
which is new for her. She was found to be flu B+. I was consulted for management of COPD in the setting of severe/advanced COPD.
Acute exacerbation of COPD-triggered by influenza A
Acute exacerbation recently 08/2025 for influenza B
Acute on chronic hypoxemic respiratory sufficiently 4 L supplemental
Chest x-ray: 10/01/2025 with subtle interstitial changes in both bases. No pleural effusions or pneumothorax.
Conditions present prior admission:
Severe COPD with chronic hypoxemic/ hypercapnic respiratory failure
ABG 07/22/2024: 7.39/54/54
Fibromyalgia
Polymyalgia rheumatica-chronic prednisone therapy 10 mg
Migraine headaches
Anxiety/depression
Diverticulosis
Polymyalgia rheumatica
Hypercholesterolemia
History of breast cancer on the right-status postlumpectomy 11/13/2024
Right breast biopsy 09/2024
Zenker diverticulectomy
Tobacco abuse
Plan
COPD exacerbation likely triggered by influenza A.
Chest x-ray with minimal bibasilar abnormalities.
Hypoxemic respiratory failure requiring slightly increased oxygen compared to baseline.
CT chest low-dose without nodule
Respiratory status slowly improving-still with some wheezes.
Supplemental oxygen as needed.
Assessment for discharge supplemental oxygen needs.
Continue albuterol nebulizers.
Symbicort and Spiriva continues
Decadron 4 mg IV every 12 hours-consider changing to prednisone 40-50 mg daily in the next 24 hours if continues to improve
Patient normally on prednisone 10 mg daily.
Ohtuvayre to restart the time of discharge.
Trelegy to restart at time of discharge.
Nucala to start at the time of discharge-this is once monthly, however, next year there is a every 6 month infusion that will be available.
BiPAP as needed
Cultures reviewed..
Antibiotics continue-finite course
Tamiflu continues-final day
Isolation per protocol
Follow leukocytosis
DVT prophylaxis-on Lovenox.
Nutrition
Early mobilization.
Outpatient follow-up with Dr. Lunsford
Last appoint 08/2025: Maximal medical therapy. Trelegy/chronic prednisone 10 mg/low-dose macrolide therapy for anti-inflammatory properties/Ohtuvayre/vest therapy which she is not using frequently.
Completed pulmonary rehabilitation.
Noninvasive mechanical ventilation at night intermittently for chronic hypercapnia.
Subjective Data
-
Date of Service:
Date of Service: October 06, 2025
Chief Complaint: Pulmonary Follow Up and Dyspnea Follow Up
Subjective:
feels tired, no increased shortness of breath, some chest congestion, no chest pain or abdominal pain
Review of Systems
General: Other ( per HPI)
Objective Data
Data Reviewed
Vital Signs / I&O:
Vital Signs
Temp Pulse Resp BP Pulse Ox
97.9 F 92 20 118/70 97
10/06/25 07:30 10/06/25 08:52 10/06/25 07:39 10/06/25 08:52 10/06/25 07:39
Intake and Output
10/05/25 10/06/25 10/07/25
06:59 06:59 06:59
Intake Total 480 / 480 480 / 480
Balance 480 / 480 480 / 480
SaO2: 97
Nasal Cannula flow liters per minute: 4
Physical Exam
General: Respiratory Distress (n), Comfortable and Other (NAD)
HEENT: Normocephalic, Anicteric and Moist Mucous Membranes
Cardiovascular: Regular Rhythm
Respiratory: Wheeze and Non-Labored Respirations
GI: Soft, Non Distended and Non Tender
Neurology: Awake, Alert and No Motor Deficits
Skin: Warm, Good Color, Cyanosis (n) and Jaundice (n)
Labs/Micro/Reports
Lab Data
10/06/25 05:54
10/06/25 05:54
--- NOTE | 2025-10-06 12:18 | CM ---
referral in [facility] for [facility]
final day tamiflu
patient previously given resources [facility]
PLAN: Home with [facility] when stable
--- NOTE | 2025-10-06 14:31 | W.PN.UPDATE ---
Update Note
Progress Note Update
Patient complaining of indigestion, described as discomfort in the epigastric area. No SOB, diaphoresis, palpitation or radiating pain.
Patient received one dose of doxycycline this morning. EKG done, troponin sent. EKG NSR. QTc 334.
Suspect this may be irritation from doxycycline. Will hold Azithromycin, stop doxycycline, and start Levaquin starting tomorrow.
Ceftriaxone contraindicated due to history of anaphylaxis with amoxicillin, which was confirmed by patient.
Patient instructed to sit up in bed and drink water in the interim.
Patient declined Tums or other medications due to concern of diarrhea which she has experienced with these in the past.
[2025-10-06 15:04] VITALS: BP 137/69
[2025-10-06 15:37] LABS: Troponin I < 0.012 ng/ml
[2025-10-06] MEDS: LOVENOX SC (17:25)
[2025-10-06] MEDS: PERCOCET 5/325 1 TABLET PO (19:58)
[2025-10-06 23:27] VITALS: BP 118/85
[2025-10-07] MEDS: DECADRON 4 MG IV ×2 (02:54→15:14)
[2025-10-07 06:51] LABS: Hematocrit 35.4 % (37.0-47.0); Hemoglobin 12.0 g/dL (12.0-16.0); Mean Corp Hgb Conc. 33.9 g/dL (33.0-37.0); Mean Corpuscular Volume 94.7 fL (81.0-99.0); Platelet Count 353 10^3/uL (130-400); Red Cell Dist. Width 11.5 % (11.5-14.5)
[2025-10-07 07:00] VITALS: BP 126/73
[2025-10-07 07:09] LABS: ALT (SGPT) 23 U/L (0-35); AST (SGOT) 19 U/L (14-36); Albumin 3.4 g/dl (3.5-5.0); Alkaline Phosphatase 42 U/L (38-126); Blood Urea Nitrogen 16 mg/dl (7-17); Calcium 9.2 mg/dl (8.4-10.2); Chloride 92 mmol/L (98-107); Estimated Creatinine Clearance 75 ml/min; Glucose 120 mg/dl (70-99); Potassium 4.8 mmol/L (3.5-5.1); Sodium 136 mmol/L (135-145); Total Protein 5.6 g/dl (6.3-8.2); eGFR > 60.00
[2025-10-07] MEDS: SPIRIVA RESPIMAT 2.5 MCG 2 PUFF INH (07:40)
[2025-10-07] MEDS: VENTOLIN NEBULES 2.5 MG INH ×2 (07:40→11:26)
[2025-10-07] MEDS: SYMBICORT 160/4.5 MCG INHALER 2 PUFF INH (07:41)
[2025-10-07 07:50] LABS: Carbon Dioxide 41 mmol/L (22-30)
--- NOTE | 2025-10-07 08:46 | W.PN.HOSP.TC ---
Today's Communication/Plan
-
Start treatment with levaquin, restart Doxy
Assessment / Plan
Assessment / Plan
Assessment:
69-year-old with past medical history for COPD, fibromyalgia, chronic pain presented to the ED with increased coughing and shortness of breath for the past 5 days. She is on 1-2L O2 for episodes of exertion as needed, however the last 5 days she
been on oxygen continuously. She was brought in by EMS requiring 4L O2 and received 10mg IV Decadron. She was found to be influenza positive. Chest x-ray revealed subtle bibasilar pneumonitis versus mild interstitial edema. She was given IV
Decadron, nebulizers and started on Tamiflu. She is admitted to the floors for further workup. She started to improve however on 10/05/2025, her oxygen requirements increased from 4 to 6 L. A chest x-ray was ordered to rule out possible
pneumonia. On 10/06 O2 req back to 4L but desats with walking.
Plan:
#Acute hypoxemic respiratory failure secondary to COPD exacerbation triggered by influenza A
-- Chest x-ray (arrival) revealed subtle bibasilar pneumonitis versus mild interstitial edema
-- IV steroids - Pulm decreased decadron 4 IV q8 hr to q12 hours
-- Transition to prednisone 50mg PO daily with long taper once clinical course improves
-- Albuterol nebs plus, budesonide, spiriva
-- Guaifenesin
-- Continue supplemental oxygen as needed to keep O2 >90%; Wean to goal 90-94%.
-- Appreciate Pulmonology reccs
-- Ohtuvayre to be restarted at discharge
-- Patient to follow up with pulmonology outpatient to start Nucala q-month infusions
-- CXR (10/05): Progressed right lower lobe and new mild left lower lobe findings probably atelectasis. Developing pneumonia not excluded.
-- On PRN 2L NC O2 at home; may need 6MWT prior to discharge and consideration of standing home O2.
-- Finished course of Tamiflu yesterday
-- Worsened leukocytosis, afebrile
-- Azithromycin held, started on Doxycycline yesterday but had side effects prompting discontinuation (Ceftriaxone contraindicated due to hx of anaphylaxis with amoxicillin)
-- Will start treatment with Levaquin for 7 days starting today, Discussed side effects from Doxy, patient agrees with restarting medicine. Starting Doxy 100mg BID again.
#Atrial tachycardia
-- Continue diltiazem
#Fibromyalgia
-- As needed Percocet from home
#Polymyalgia rheumatica
-- On prednisone 10 daily at home -chronic steroid use
-- IV steroid increased for COPD as above; long taper back to prednisone 10mg outpatient
#History of breast cancer s/p lumpectomy 11/13/24, chemotherapy and radiation
-- Follows with Dr. Bae
Insomnia
Osteoarthritis
Diverticulosis
Headaches
Zenker diverticulum
Cervical stenosis
Migraines
Hyperlipidemia
Full Code
DVT Prophylaxis: Lovenox
Anticipated Discharge: 24 - 48 hours
Subjective/Interval History
-
Date of Service: October 07, 2025
Patient states that her breathing has not gotten any better or worse since yesterday. Mentions that her oxygen dropped to the 80s as she was brushing her teeth last night but then improved afterwards. Still having some O2 Desaturation as she walks
back and forth from the bathroom. No further GI symptoms following discontinuation of Doxycycline yesterday. Continues to be Afebrile, no new complaints overnight, was able to sleep well. Says she has been able to cough a bit more though and
clearing up some mucous.
Objective Data
-
Labs:
Laboratory Results
10/07/25
06:11
WBC 13.8 H
Hgb 12.0
Hct 35.4 L
Plt Count 353
Sodium 136
Potassium 4.8
Chloride 92 L
Carbon Dioxide 41 H
BUN 16
Creatinine 0.5 L
Glucose 120 H
Calcium 9.2
Total Bilirubin 0.3
AST 19
ALT 23
Alkaline Phosphatase 42
Vital Signs:
Vital Signs
Temp Pulse Resp BP Pulse Ox
98.1 F 103 20 126/73 95
10/07/25 07:00 10/07/25 07:43 10/07/25 07:43 10/07/25 07:00 10/07/25 07:43
I&O
10/06/25 10/07/25 10/08/25
06:59 06:59 06:59
Intake Total 480 / 480 720 / 720
Balance 480 / 480 720 / 720
Review of Systems
-
History Source: Patient
All other systems: Reviewed and negative
Constitutional: Reports No Appetite; Denies Fever or Chills
Respiratory: Reports Cough (wet, but nonproductive) and Trouble Breathing (with exertion); Denies Pleurisy
Cardiac: Denies Chest Pain
Abdomen/GI: Denies Abdominal Pain, Nausea, Vomiting or Diarrhea
Musculoskeletal: Reports No Symptoms
Skin: Reports No Symptoms
Neuro: Reports No Symptoms
Physical Exam
-
General: No Apparent Distress, Comfortable and Conversant; Negative Fever or Chills
HEENT: Normocephalic, Atraumatic, Moist Mucous Membranes and Oxygen (4 L)
Respiratory: Wheezes (Mild wheezing heard right lung campos) and Decreased Breath Sounds (throughout)
Cardiac: Regular Rhythm and S1/S2
GI: Soft, Nontender and Nondistended
Musculoskeletal: No Cyanosis and No Edema
Skin: Warm
Neuro: Awake and Alert
Psych: Calm
Data Reviewed
-
Labs: Labs Reviewed by me, Discussed with Physician and Discussed with Patient
[2025-10-07] MEDS: MUCINEX 600 MG PO ×2 (09:49→20:11)
[2025-10-07] MEDS: PROTONIX 40 MG PO (09:49)
[2025-10-07] MEDS: LEVAQUIN 500 MG PO (09:49)
[2025-10-07] MEDS: CARDIZEM CD 120 MG PO (09:49)
--- NOTE | 2025-10-07 10:52 | W.PN.PUL.V3 ---
Today's Communication / Plan
-
.
Wean oxygen.
Increased activity.
Change Decadron to prednisone in the next 24 hours.
Finite course of antibiotics
Assessment
-
73-year-old woman with history of COPD, chronic hypoxemic and hypercapnic respiratory failure-admitted with 2 weeks worth of shortness of breath, increased phlegm production. Chest x-ray was clear. She was found to be mildly hypoxemic on room air
which is new for her. She was found to be flu B+. I was consulted for management of COPD in the setting of severe/advanced COPD.
Acute exacerbation of COPD-triggered by influenza A
Acute exacerbation recently 08/2025 for influenza B
Acute on chronic hypoxemic respiratory sufficiently 4 L supplemental
Chest x-ray: 10/01/2025 with subtle interstitial changes in both bases. No pleural effusions or pneumothorax.
Conditions present prior admission:
Severe COPD with chronic hypoxemic/ hypercapnic respiratory failure
ABG 07/22/2024: 7.39/54/54
Fibromyalgia
Polymyalgia rheumatica-chronic prednisone therapy 10 mg
Migraine headaches
Anxiety/depression
Diverticulosis
Polymyalgia rheumatica
Hypercholesterolemia
History of breast cancer on the right-status postlumpectomy 11/13/2024
Right breast biopsy 09/2024
Zenker diverticulectomy
Tobacco abuse
Plan
COPD exacerbation likely triggered by influenza A.
Chest x-ray with minimal bibasilar abnormalities.
Hypoxemic respiratory failure requiring slightly increased oxygen compared to baseline.
CT chest low-dose without nodule
Respiratory status slowly improving-still with some wheezes.
Supplemental oxygen as needed-currently on 4 L
Assessment for discharge supplemental oxygen needs.
Continue albuterol nebulizers.
Symbicort and Spiriva continues
Decadron 4 mg IV every 12 hours-consider changing to prednisone 40-50 mg daily Tomorrow
Patient normally on prednisone 10 mg daily.
Ohtuvayre to restart the time of discharge.
Trelegy to restart at time of discharge.
Nucala to start at the time of discharge-this is once monthly, however, next year there is a every 6 month infusion that will be available.
BiPAP as needed.
Incentive spirometry and flutter.
Vest therapy added
Cultures reviewed..
Antibiotics continue-finite course
Tamiflu -finished
Isolation per protocol
Follow leukocytosis
DVT prophylaxis-on Lovenox.
Nutrition
Early mobilization.
Outpatient follow-up with Dr. Lunsford
Last appoint 08/2025: Maximal medical therapy Trelegy/chronic prednisone 10 mg/low-dose macrolide therapy for anti-inflammatory properties/Ohtuvayre/vest therapy which she is not using frequently.
Completed pulmonary rehabilitation.
Noninvasive mechanical ventilation at night intermittently for chronic hypercapnia.
Subjective Data
-
Date of Service:
Date of Service: October 07, 2025
Chief Complaint: Pulmonary Follow Up and Dyspnea Follow Up
Subjective:
Continues with some cough, some shortness of breath with exertion, no chest pain or abdominal pain, difficulties mobilizing secretions
Review of Systems
General: Other (Per HPI)
Objective Data
Data Reviewed
Vital Signs / I&O:
Vital Signs
Temp Pulse Resp BP Pulse Ox
98.1 F 103 20 126/73 95
10/07/25 07:00 10/07/25 07:43 10/07/25 07:43 10/07/25 07:00 10/07/25 07:43
Intake and Output
10/06/25 10/07/25 10/08/25
06:59 06:59 06:59
Intake Total 480 / 480 720 / 720
Balance 480 / 480 720 / 720
SaO2: 95
Nasal Cannula flow liters per minute: 4
Physical Exam
General: Respiratory Distress (n), Comfortable and Other (NAD)
HEENT: Normocephalic, Anicteric and Moist Mucous Membranes
Cardiovascular: Regular Rhythm
Respiratory: Wheeze and Non-Labored Respirations
GI: Soft, Non Distended and Non Tender
Neurology: Awake, Alert and No Motor Deficits
Skin: Warm, Good Color, Cyanosis (n) and Jaundice (n)
Labs/Micro/Reports
Lab Data
10/07/25 06:11
10/07/25 06:11
[2025-10-07] MEDS: VIBRAMYCIN 100 MG PO ×2 (12:36→20:17)
--- NOTE | 2025-10-07 13:37 | W.PN.UPDATE ---
Update Note
Progress Note Update
Patient seen with residents.
69-year-old female p/w shortness of breath
A/P:
# Acute hypoxic respiratory failure secondary to influenza and COPD exacerbation
# Possible developing pneumonia
Cont current 4L NC, wean as tolerated, she is on PRN O2 at home
completed Tamiflu. Patient has not had flu shot. Advised importance of getting flu shot
Cont current IV Decadron 4 mg Q12H
DuoNeb ATC and PRN
Patient has been started with antibiotic, continue current Levaquin and doxycycline
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
Pulmonary has been consulted and following
Other medical conditions:
# Dyspepsia- Continue PPI.
# Hypertension-continue Cardizem
# Insomnia-continue Ambien as needed
# History of migraines
# History of right breast cancer with history of lumpectomy chemo and radiation- follows with Dr. Bae
# Fibromyalgia/osteoarthritis
# Polymyalgia rheumatica, on low-dose prednisone outpatient
# Ex Smoker- Vaping continues occasionally-cessation counseling
# History of Zenker's diverticulum with surgery in the past
DVT prophylaxis-Lovenox
Full code
[2025-10-07 14:05] VITALS: PULSE 101; O2SAT 94
[2025-10-07 15:00] VITALS: BP 138/76
[2025-10-07] MEDS: DUONEB 3 ML INH ×2 (15:08→19:35)
[2025-10-07 16:04] VITALS: PULSE 101; O2SAT 94
--- NOTE | 2025-10-07 17:13 | CM ---
CM continues to follow for discharge planning needs. Current plan is for [facility] with [employer] to assist with arranging Meals on Wheels providing resources for other needs that patient may not have disclosed.
[2025-10-07] MEDS: LOVENOX SC (17:58)
[2025-10-07] MEDS: PERCOCET 5/325 1 TABLET PO (20:17)
[2025-10-07 23:00] VITALS: BP 152/74
[2025-10-07] MEDS: AMBIEN 10 MG PO (23:37)
[2025-10-08] MEDS: DECADRON 4 MG IV (03:02)
[2025-10-08 06:19] LABS: Hematocrit 35.3 % (37.0-47.0); Hemoglobin 11.8 g/dL (12.0-16.0); Mean Corp Hgb Conc. 33.4 g/dL (33.0-37.0); Mean Corpuscular Volume 94.6 fL (81.0-99.0); Nucleated Red Blood Cells % 0 %; Platelet Count 327 10^3/uL (130-400); Red Cell Dist. Width 11.4 % (11.5-14.5)
[2025-10-08 06:48] LABS: ALT (SGPT) 21 U/L (0-35); AST (SGOT) 20 U/L (14-36); Albumin 3.2 g/dl (3.5-5.0); Alkaline Phosphatase 37 U/L (38-126); Blood Urea Nitrogen 20 mg/dl (7-17); Calcium 9.0 mg/dl (8.4-10.2); Carbon Dioxide 39 mmol/L (22-30); Chloride 92 mmol/L (98-107); Estimated Creatinine Clearance 74 ml/min; Glucose 116 mg/dl (70-99); Potassium 4.9 mmol/L (3.5-5.1); Sodium 134 mmol/L (135-145); Total Protein 5.4 g/dl (6.3-8.2); eGFR > 60.00
[2025-10-08 07:00] VITALS: BP 111/62
[2025-10-08] MEDS: DUONEB 3 ML INH ×3 (07:24→15:06)
[2025-10-08] MEDS: VIBRAMYCIN 100 MG PO ×2 (07:47→21:36)
[2025-10-08] MEDS: PROTONIX 40 MG PO (07:47)
[2025-10-08] MEDS: MUCINEX 600 MG PO ×2 (07:47→21:36)
[2025-10-08] MEDS: LEVAQUIN 500 MG PO (07:47)
[2025-10-08] MEDS: CARDIZEM CD 120 MG PO (08:03)
--- NOTE | 2025-10-08 08:49 | W.PN.HOSP.TC ---
Today's Communication/Plan
-
Continue Antibiotics
Continue Weaning O2
Switch to oral steroids
Assessment / Plan
Assessment / Plan
Assessment:
69-year-old with past medical history for COPD, fibromyalgia, chronic pain presented to the ED with increased coughing and shortness of breath for the past 5 days. She is on 1-2L O2 for episodes of exertion as needed, however the last 5 days she
been on oxygen continuously. She was brought in by EMS requiring 4L O2 and received 10mg IV Decadron. She was found to be influenza positive. Chest x-ray revealed subtle bibasilar pneumonitis versus mild interstitial edema. She was given IV
Decadron, nebulizers and started on Tamiflu. She is admitted to the floors for further workup. She started to improve however on 10/05/2025, her oxygen requirements increased from 4 to 6 L. A chest x-ray was ordered to rule out possible
pneumonia. On 10/06 O2 req back to 4L but desats with walking.
Plan:
#Acute hypoxemic respiratory failure secondary to COPD exacerbation triggered by influenza A
-- Chest x-ray (arrival) revealed subtle bibasilar pneumonitis versus mild interstitial edema
-- IV steroids - Pulm decreased decadron 4 IV q8 hr to q12 hours
-- Transition to prednisone 50mg PO likely today
-- Albuterol nebs plus, budesonide, spiriva
-- Guaifenesin
-- Continue supplemental oxygen as needed to keep O2 >90%; Wean to goal 90-94%.
-- Appreciate Pulmonology reccs
-- Ohtuvayre to be restarted at discharge
-- Patient to follow up with pulmonology outpatient to start Nucala q-month infusions
-- CXR (10/05): Progressed right lower lobe and new mild left lower lobe findings probably atelectasis. Developing pneumonia not excluded.
-- Finished course of Tamiflu
-- Continues to have worsening leukocytosis but afebrile. May be due to steroids
-- Weaning O2 as tolerated, now down to 3 L
-- Azithromycin held, Continue Doxycycline (Day 3) and Levaquin (Day 2). No side effects from antibiotics yesterday.
#Atrial tachycardia
-- Continue diltiazem
#Fibromyalgia
-- As needed Percocet from home
#Polymyalgia rheumatica
-- On prednisone 10 daily at home -chronic steroid use
-- IV steroid increased for COPD as above; long taper back to prednisone 10mg outpatient
#History of breast cancer s/p lumpectomy 11/13/24, chemotherapy and radiation
-- Follows with Dr. Bae
Insomnia
Osteoarthritis
Diverticulosis
Headaches
Zenker diverticulum
Cervical stenosis
Migraines
Hyperlipidemia
Full Code
DVT Prophylaxis: Lovenox
Anticipated Discharge: Within 24 hours
Subjective/Interval History
-
Date of Service: October 08, 2025
Patient seen this morning, resting comfortably in her bed. States that she is feeling a bit better from yesterday, has been able to cough up a lot of the mucus she feels has been stuck in her lungs in the past. Still continuing to require oxygen
however was weaning down to 3 L now when seen. Her oxygen levels are still desaturating as she walks [id number] from the bathroom and brushes her teeth however she feels a little bit open improvement in her symptoms since yesterday.
Objective Data
-
Labs:
Laboratory Results
10/08/25
05:55
WBC 13.9 H
Hgb 11.8 L
Hct 35.3 L
Plt Count 327
Sodium 134 L
Potassium 4.9
Chloride 92 L
Carbon Dioxide 39 H
BUN 20 H
Creatinine 0.5 L
Glucose 116 H
Calcium 9.0
Total Bilirubin 0.3
AST 20
ALT 21
Alkaline Phosphatase 37 L
Vital Signs:
Vital Signs
Temp Pulse Resp BP Pulse Ox
97.8 F 98 18 111/62 94
10/08/25 07:00 10/08/25 07:28 10/08/25 07:28 10/08/25 07:00 10/08/25 07:28
I&O
10/07/25 10/08/25 10/09/25
06:59 06:59 06:59
Intake Total 720 / 720 1170 / 1170
Balance 720 / 720 1170 / 1170
Review of Systems
-
History Source: Patient
All other systems: Reviewed and negative
Constitutional: Reports Fatigue; Denies Fever or Chills
Respiratory: Reports Cough; Denies Wheezing or Pleurisy
Cardiac: Denies Chest Pain
Abdomen/GI: Denies Abdominal Pain, Nausea, Vomiting or Diarrhea
Musculoskeletal: Reports No Symptoms
Skin: Reports No Symptoms
Neuro: Reports No Symptoms
Physical Exam
-
General: No Apparent Distress, Comfortable and Conversant; Negative Respiratory Distress, Fever or Chills
HEENT: Normocephalic, Atraumatic, Moist Mucous Membranes and Oxygen (3 L)
Respiratory: Decreased Breath Sounds (throughout); Negative Wheezes (Wheezing much improved from before)
Cardiac: Regular Rhythm and S1/S2
GI: Soft, Nontender, Nondistended and Normal Bowel Sounds
Musculoskeletal: No Clubbing, No Cyanosis and No Edema
Skin: Warm
Neuro: Awake, Alert, Oriented and AO x 3
Psych: Calm
Data Reviewed
-
Labs: Labs Reviewed by me, Discussed with Physician and Discussed with Patient
--- NOTE | 2025-10-08 10:38 | W.PN.PUL.V3 ---
Today's Communication / Plan
-
.
Wean oxygen.
Increase activity.
Change Decadron to prednisone.
Consider discharge in the next 24 hours
Assessment
-
73-year-old woman with history of COPD, chronic hypoxemic and hypercapnic respiratory failure-admitted with 2 weeks worth of shortness of breath, increased phlegm production. Chest x-ray was clear. She was found to be mildly hypoxemic on room air
which is new for her. She was found to be flu B+. I was consulted for management of COPD in the setting of severe/advanced COPD.
Acute exacerbation of COPD-triggered by influenza A
Acute exacerbation recently 08/2025 for influenza B
Acute on chronic hypoxemic respiratory sufficiently 4 L supplemental
Chest x-ray: 10/01/2025 with subtle interstitial changes in both bases. No pleural effusions or pneumothorax.
Conditions present prior admission:
Severe COPD with chronic hypoxemic/ hypercapnic respiratory failure
ABG 07/22/2024: 7.39/54/54
Fibromyalgia
Polymyalgia rheumatica-chronic prednisone therapy 10 mg
Migraine headaches
Anxiety/depression
Diverticulosis
Polymyalgia rheumatica
Hypercholesterolemia
History of breast cancer on the right-status postlumpectomy 11/13/2024
Right breast biopsy 09/2024
Zenker diverticulectomy
Tobacco abuse
Plan
COPD exacerbation likely triggered by influenza A.
Chest x-ray with minimal bibasilar abnormalities.
Hypoxemic respiratory failure requiring slightly increased oxygen compared to baseline.
CT chest low-dose without nodule
Respiratory status slowly improving-still with some wheezes.
Supplemental oxygen as needed-currently on 3 L-on 2 L at home
Assessment for discharge supplemental oxygen needs.
Continue albuterol nebulizers.
Symbicort and Spiriva continues
Decadron 4 mg IV every 12 hours--Changed to prednisone 40 mg daily with slow taper to 10 mg
Patient normally on prednisone 10 mg daily.
Ohtuvayre nebulizer to restart the time of discharge.
Trelegy to restart at time of discharge.
Nucala to start at the time of discharge-this is once monthly, however, next year there is a every 6 month infusion that will be available.
BiPAP as needed.
Incentive spirometry and flutter.
Vest therapy added
Cultures reviewed
Antibiotics continue-finite course
Tamiflu -finished
Isolation per protocol
Follow leukocytosis
DVT prophylaxis-on Lovenox.
Nutrition
Early mobilization.
Outpatient follow-up with Dr. Lunsford
Last appoint 08/2025: Maximal medical therapy Trelegy/chronic prednisone 10 mg/low-dose macrolide therapy for anti-inflammatory properties/Ohtuvayre/vest therapy which she is not using frequently.
Completed pulmonary rehabilitation.
Noninvasive mechanical ventilation at night intermittently for chronic hypercapnia.
Subjective Data
-
Date of Service:
Date of Service: October 08, 2025
Chief Complaint: Pulmonary Follow Up and Dyspnea Follow Up
Subjective:
Feels better, on 3 L of oxygen-at home 2 L, no chest pain, abdominal pain
Review of Systems
General: Other (Per HPI)
Objective Data
Data Reviewed
Vital Signs / I&O:
Vital Signs
Temp Pulse Resp BP Pulse Ox
97.8 F 98 18 111/62 94
10/08/25 07:00 10/08/25 07:28 10/08/25 07:28 10/08/25 07:00 10/08/25 07:28
Intake and Output
10/07/25 10/08/25 10/09/25
06:59 06:59 06:59
Intake Total 720 / 720 1170 / 1170
Balance 720 / 720 1170 / 1170
SaO2: 94
Nasal Cannula flow liters per minute: 3
Physical Exam
General: Respiratory Distress (n), Comfortable and Other (NAD)
HEENT: Normocephalic, Anicteric and Moist Mucous Membranes
Cardiovascular: Regular Rhythm
Respiratory: Wheeze and Non-Labored Respirations
GI: Soft, Non Distended and Non Tender
Neurology: Awake, Alert and No Motor Deficits
Skin: Warm, Good Color, Cyanosis (n) and Jaundice (n)
Labs/Micro/Reports
Lab Data
10/08/25 05:55
10/08/25 05:55
--- NOTE | 2025-10-08 11:29 | CM ---
PT rec home health
referral in [facility] for [facility]
PLAN: home with [facility], when stable
--- NOTE | 2025-10-08 12:14 | W.PN.UPDATE ---
Update Note
Progress Note Update
69-year-old female p/w shortness of breath
A/P:
# Acute hypoxic respiratory failure secondary to influenza and COPD exacerbation
# Possible developing pneumonia
O2 weaned to 3L NC, cont to wean as tolerated, she is on PRN 2L NC O2 at home
completed Tamiflu. Patient has not had flu shot. Advised importance of flu shot
Cont current IV Decadron 4 mg Q12H
DuoNeb ATC and PRN
Patient has been started with antibiotic, continue current Levaquin and doxycycline
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
Pulmonary following
Other medical conditions:
# Dyspepsia- continue PPI.
# Hypertension- continue Cardizem
# Insomnia- continue Ambien as needed
# History of migraines
# History of right breast cancer with history of lumpectomy chemo and radiation- follows with Dr. Bae
# Fibromyalgia/osteoarthritis
# Polymyalgia rheumatica, on low-dose prednisone outpatient
# Ex Smoker- Vaping continues occasionally-cessation counseling
# History of Zenker's diverticulum with surgery in the past
DVT prophylaxis-Lovenox
Full code
[2025-10-08] MEDS: MYCOSTATIN ORAL SUSPENSION 5 ML PO ×3 (14:11→21:36)
[2025-10-08 15:00] VITALS: BP 122/68
[2025-10-08 16:29] VITALS: O2SAT 96
--- NOTE | 2025-10-08 16:38 | PTOTSP ---
Pt is ambulating independently in her room without need for any assistive device. She has O2 at home. PT goals met. Will sign off.
[2025-10-08] MEDS: LOVENOX SC ×2 (17:45→17:52)
[2025-10-08] MEDS: PERCOCET 5/325 1 TABLET PO (17:54)
[2025-10-08] MEDS: VENTOLIN NEBULES 2.5 MG INH (19:45)
[2025-10-08 23:00] VITALS: BP 125/76
[2025-10-08] MEDS: AMBIEN 10 MG PO (23:11)
[2025-10-09 07:26] LABS: Hematocrit 35.8 % (37.0-47.0); Hemoglobin 11.7 g/dL (12.0-16.0); Mean Corp Hgb Conc. 32.7 g/dL (33.0-37.0); Mean Corpuscular Volume 94.5 fL (81.0-99.0); Nucleated Red Blood Cells % 0 %; Platelet Count 306 10^3/uL (130-400); Red Cell Dist. Width 11.7 % (11.5-14.5)
[2025-10-09 07:27] LABS: ALT (SGPT) 21 U/L (0-35); AST (SGOT) 21 U/L (14-36); Albumin 3.1 g/dl (3.5-5.0); Alkaline Phosphatase 37 U/L (38-126); Blood Urea Nitrogen 24 mg/dl (7-17); Calcium 9.0 mg/dl (8.4-10.2); Chloride 92 mmol/L (98-107); Estimated Creatinine Clearance 74 ml/min; Glucose 91 mg/dl (70-99); Potassium 4.3 mmol/L (3.5-5.1); Sodium 134 mmol/L (135-145); Total Protein 5.2 g/dl (6.3-8.2); eGFR > 60.00
[2025-10-09 07:31] VITALS: BP 117/72
[2025-10-09 07:36] LABS: Carbon Dioxide 39 mmol/L (22-30)
[2025-10-09] MEDS: DELTASONE 40 MG PO (08:12)
[2025-10-09] MEDS: CARDIZEM CD 120 MG PO (08:12)
[2025-10-09] MEDS: PROTONIX 40 MG PO (08:13)
[2025-10-09] MEDS: MUCINEX 600 MG PO (08:13)
[2025-10-09] MEDS: MYCOSTATIN ORAL SUSPENSION 5 ML PO ×2 (08:13→12:34)
[2025-10-09] MEDS: VIBRAMYCIN 100 MG PO (08:13)
[2025-10-09] MEDS: LEVAQUIN 500 MG PO (08:13)
--- NOTE | 2025-10-09 08:16 | W.PN.HOSP.TC ---
Today's Communication/Plan
-
Prednisone taper at discharge
Discharge on 2 more days of levofloxacin and 1 more day of Doxy to finish a 5-day course of antibiotic
Assessment / Plan
Assessment / Plan
Assessment:
69-year-old with past medical history for COPD, fibromyalgia, chronic pain presented to the ED with increased coughing and shortness of breath for the past 5 days. She is on 1-2L O2 for episodes of exertion as needed, however the last 5 days she
been on oxygen continuously. She was brought in by EMS requiring 4L O2 and received 10mg IV Decadron. She was found to be influenza positive. Chest x-ray revealed subtle bibasilar pneumonitis versus mild interstitial edema. She was given IV
Decadron, nebulizers and started on Tamiflu. She is admitted to the floors for further workup. She started to improve however on 10/05/2025, her oxygen requirements increased from 4 to 6 L. A chest x-ray was ordered to rule out possible
pneumonia. On 10/06 O2 req back to 4L but desats with walking. Prophylactic azithromycin was held and patient was transition to doxycycline. She had some abdominal discomfort suspected to be a side effect of the doxycycline however atypical cardiac
etiology was worked up and troponins were negative and EKG was nonischemic. Levaquin was added to cover atypicals. She was later transition to p.o. prednisone and clinically continued to improve.
Plan:
#Acute hypoxemic respiratory failure secondary to COPD exacerbation triggered by influenza A
-- Chest x-ray (arrival) revealed subtle bibasilar pneumonitis versus mild interstitial edema
-- IV steroids - Pulm decreased decadron 4 IV q8 hr to q12 hours - > 40mg prednisone PO daily - slow taper at discharge
-- Albuterol nebs plus, budesonide, spiriva
-- Guaifenesin
-- Continue supplemental oxygen as needed to keep O2 >90%; Wean to goal 90-94%.
-- Appreciate Pulmonology reccs
-- Ohtuvayre to be restarted at discharge
-- Patient to follow up with pulmonology outpatient to start Nucala q-month infusions
-- CXR (10/05): Progressed right lower lobe and new mild left lower lobe findings probably atelectasis. Developing pneumonia not excluded.
-- Finished course of Tamiflu
-- WBC uptrending - clinically improving so may be due to steroids
-- Weaning O2 as tolerated, now down to 3 L
-- Azithromycin held, Continue Doxycycline (Day 4) and Levaquin (Day 3). No side effects from antibiotics yesterday.
-- Discharge with an additional 1 day of doxycycline and 3 days of Levaquin to complete the respective 5-day courses
#Atrial tachycardia
-- Continue diltiazem
#Fibromyalgia
-- As needed Percocet from home
#Polymyalgia rheumatica
-- On prednisone 10 daily at home -chronic steroid use
-- IV steroid increased for COPD as above; long taper back to prednisone 10mg outpatient
#History of breast cancer s/p lumpectomy 11/13/24, chemotherapy and radiation
-- Follows with Dr. Bae
Insomnia
Osteoarthritis
Diverticulosis
Headaches
Zenker diverticulum
Cervical stenosis
Migraines
Hyperlipidemia
Full Code
DVT Prophylaxis: Lovenox
Anticipated Discharge: Today
Subjective/Interval History
-
Date of Service: October 09, 2025
Length overnight. Patient is feeling significantly better than prior. She reports she has more energy than before.
Objective Data
-
Labs:
Laboratory Results
10/09/25
06:35
WBC 14.1 H
Hgb 11.7 L
Hct 35.8 L
Plt Count 306
Sodium 134 L
Potassium 4.3
Chloride 92 L
Carbon Dioxide 39 H
BUN 24 H
Creatinine 0.5 L
Glucose 91
Calcium 9.0
Total Bilirubin 0.3
AST 21
ALT 21
Alkaline Phosphatase 37 L
Vital Signs:
Vital Signs
Temp Pulse Resp BP Pulse Ox
97.6 F 100 17 117/72 97
10/09/25 07:31 10/09/25 07:31 10/09/25 07:31 10/09/25 07:31 10/09/25 07:31
I&O
10/08/25 10/09/25 10/10/25
06:59 06:59 06:59
Intake Total 1170 / 1170 2640 / 2640
Balance 1170 / 1170 2640 / 2640
Review of Systems
-
History Source: Patient
Respiratory: Reports Cough, Trouble Breathing and Wheezing
Cardiac: Reports No Symptoms
Abdomen/GI: Reports No Symptoms
Genitourinary: Reports No Symptoms
Musculoskeletal: Reports No Symptoms
Skin: Reports No Symptoms
Neuro: Reports No Symptoms
Physical Exam
-
General: No Apparent Distress
HEENT: Thrush
Respiratory: Wheezes
Cardiac: Regular Rhythm and S1/S2
GI: Soft, Nontender, Nondistended and Normal Bowel Sounds
Musculoskeletal: No Cyanosis and No Edema
Skin: Warm and Dry
Neuro: AO x 3
Psych: Calm
[2025-10-09] MEDS: VENTOLIN NEBULES 2.5 MG INH ×2 (08:23→11:13)
--- NOTE | 2025-10-09 10:23 | W.PN.PUL.V3 ---
Today's Communication / Plan
-
Prednisone taper
Wean oxygen
Increase activity
Finite course of antibiotics
Outpatient pulmonary [id number] will sign off-please call with questions
Assessment
-
73-year-old woman with history of COPD, chronic hypoxemic and hypercapnic respiratory failure-admitted with 2 weeks worth of shortness of breath, increased phlegm production. Chest x-ray was clear. She was found to be mildly hypoxemic on room air
which is new for her. She was found to be flu B+. I was consulted for management of COPD in the setting of severe/advanced COPD.
Acute exacerbation of COPD-triggered by influenza A
Acute exacerbation recently 08/2025 for influenza B
Acute on chronic hypoxemic respiratory sufficiently 4 L supplemental
Chest x-ray: 10/01/2025 with subtle interstitial changes in both bases. No pleural effusions or pneumothorax.
Conditions present prior admission:
Severe COPD with chronic hypoxemic/ hypercapnic respiratory failure
ABG 07/22/2024: 7.39/54/54
Fibromyalgia
Polymyalgia rheumatica-chronic prednisone therapy 10 mg
Migraine headaches
Anxiety/depression
Diverticulosis
Polymyalgia rheumatica
Hypercholesterolemia
History of breast cancer on the right-status postlumpectomy 11/13/2024
Right breast biopsy 09/2024
Zenker diverticulectomy
Tobacco abuse
Plan
COPD exacerbation likely triggered by influenza A.
Chest x-ray with minimal bibasilar abnormalities.
Hypoxemic respiratory failure requiring slightly increased oxygen compared to baseline.
CT chest low-dose without nodule
Respiratory status slowly improving-still with some wheezes.
Supplemental oxygen as needed-currently on 3 L-on 2 L at home
Assessment for discharge supplemental oxygen needs.
Continue albuterol nebulizers.
Symbicort and Spiriva continues
Decadron changed to prednisone 40 mg with slow taper-40 mg daily for 3 days, then 30 mg daily for 3 days and then 20 mg daily for 3 days and then 10 mg daily
Patient normally on prednisone 10 mg daily.
Ohtuvayre nebulizer to restart the time of discharge.
Trelegy to restart at time of discharge.
Nucala to start at the time of discharge-this is once monthly, however, next year there is a every 6 month infusion that will be available.
BiPAP as needed.
Incentive spirometry and flutter.
Vest therapy added
Cultures reviewed
Antibiotics continue-finite course
Tamiflu -finished
Isolation per protocol
Follow leukocytosis
DVT prophylaxis-on Lovenox.
Nutrition
Early mobilization.
Respiratory status improved and now stabilized-pulmonary will sign off
Outpatient follow-up with Dr. Lunsford
Last appoint 08/2025: Maximal medical therapy Trelegy/chronic prednisone 10 mg/low-dose macrolide therapy for anti-inflammatory properties/Ohtuvayre/vest therapy which she is not using frequently.
Completed pulmonary rehabilitation.
Noninvasive mechanical ventilation at night intermittently for chronic hypercapnia.
Subjective Data
-
Date of Service:
Date of Service: October 09, 2025
Chief Complaint: Pulmonary Follow Up and Dyspnea Follow Up
Subjective:
Feels better less shortness of breath, less wheezing, less congestion
Review of Systems
HEENT: Other (Per HPI)
Objective Data
Data Reviewed
Vital Signs / I&O:
Vital Signs
Temp Pulse Resp BP Pulse Ox
97.6 F 94 18 117/72 93
10/09/25 07:31 10/09/25 08:26 10/09/25 08:26 10/09/25 07:31 10/09/25 08:26
Intake and Output
10/08/25 10/09/25 10/10/25
06:59 06:59 06:59
Intake Total 1170 / 1170 2640 / 2640
Balance 1170 / 1170 2640 / 2640
SaO2: 93
Nasal Cannula flow liters per minute: 3
Physical Exam
General: Respiratory Distress (n), Comfortable and Other (NAD)
HEENT: Normocephalic, Anicteric and Moist Mucous Membranes
Cardiovascular: Regular Rhythm
Respiratory: Wheeze and Non-Labored Respirations
GI: Soft, Non Distended and Non Tender
Neurology: Awake, Alert and No Motor Deficits
Skin: Warm, Good Color, Cyanosis (n) and Jaundice (n)
Labs/Micro/Reports
Lab Data
10/09/25 06:35
10/09/25 06:35
Microbiology
10/07/25 12:39 Nose MRSA Screen - Final
No Methicillin Resistant Staphylococcus aureus isolated.
--- NOTE | 2025-10-09 13:21 | CM ---
MD entered order for discharge.
Spoke with patient in room she said she agreed with discharge to home with [facility].
IMM reviewed and pt requested dc today.
Mireya friend will drive her home today.
Pt has own home oxygen with her.
PLAN Home with [facility]
--- NOTE | 2025-10-09 13:57 | W.PN.UPDATE ---
Addendum entered and electronically signed by Maribel Gerardo MD 10/10/25 11:55:
Total DC time 40 minutes
Original Note:
Update Note
Progress Note Update
69-year-old female p/w shortness of breath.
A/P:
# Acute hypoxic respiratory failure secondary to influenza and COPD exacerbation
# Possible developing pneumonia
O2 weaned down to 3L NC, she is on PRN 2L NC O2 at home
completed Tamiflu. Patient has not had flu shot. Advised importance of flu shot
IV Decadron 4 mg Q12H -> 40 mg daily, cont outpt taper
Patient has been started with antibiotic, continue current Levaquin and doxycycline for total 5 days. Resume RAG SHREDDER Zithromax after Abx course
Follow up with Pulmonary outpatient
Other medical conditions:
# Dyspepsia- continue PPI.
# Hypertension- continue Cardizem
# Insomnia- continue Ambien as needed
# History of migraines
# History of right breast cancer with history of lumpectomy chemo and radiation- follows with Dr. Bae
# Fibromyalgia/osteoarthritis
# Polymyalgia rheumatica, on low-dose prednisone outpatient
# Ex Smoker- Vaping continues occasionally-cessation counseling
# History of Zenker's diverticulum with surgery in the past
DVT prophylaxis-Lovenox
Full code
[2025-10-09 15:11] VITALS: BP 109/72
[2025-10-09] MEDS: VENTOLIN NEBULES INH (15:16)
--- NOTE | 2025-10-09 16:09 | W.DCSUMMARY ---
Documented by User: Julissa Hager MD, Resident 10/09/25 16:15
Discharge Summary
Discharge Data
Date of Admission: 10/01/25
Date of Discharge: 10/09/25
-
Pending Results: No
Hospital Course
Primary diagnosis:
Acute hypoxemic respiratory failure secondary to COPD exacerbation triggered by influenza A
Secondary diagnosis:
Atrial tachycardia
Fibromyalgia
Polymyalgia rheumatica
History of breast cancer status postlumpectomy, chemotherapy, radiation
Insomnia
Osteoarthritis
Diverticulosis
Headaches
Sinkers diverticulum
Cervical stenosis
Migraines
Hyperlipidemia
Hospital course:
69-year-old with past medical history for COPD, fibromyalgia, chronic pain presented to the ED with increased coughing and shortness of breath for the past 5 days. She is on 1-2L O2 for episodes of exertion as needed, however the last 5 days she had
been on oxygen continuously. She was brought in by EMS requiring 4L O2 and received 10mg IV Decadron. She was found to be influenza positive. Chest x-ray revealed subtle bibasilar pneumonitis versus mild interstitial edema. She was given IV
Decadron, nebulizers and started on Tamiflu. She is admitted to the floors for further workup. She started to improve however on 10/05/2025, her oxygen requirements increased from 4 to 6 L. A repeat chest x-ray was ordered which revealed possible
pneumonia. Prophylactic azithromycin was held and patient was transition to doxycycline. She had some abdominal discomfort suspected to be a side effect of the doxycycline however atypical cardiac etiology was worked up and troponins were negative
and EKG was nonischemic. Levaquin was added to cover atypical. She was later transition to p.o. prednisone and clinically continued to improve.
Today, patient is clinically stable for discharge. She is being discharged with an additional 1 day of doxycycline and 2 days of levofloxacin to complete 5 days of their respective courses. In addition, she has been discharged on a prednisone taper
to be weaned down back to her home dose of 10 mg daily. She remains on 3 L of oxygen however already has home oxygen set up and plans to follow up with pulmonology. She is also being discharged with visiting nurses.
Discharge Plan
-
Patient Disposition: Home with Home Care
Discharge Diagnosis/Procedures: Acute hypoxemic respiratory failure secondary to influenza A and COPD exacerbation
Pneumonia
Dyspepsia
Hypertension
Insomnia
History of migraines
History of breast cancer
Fibromyalgia
Polymyalgia rheumatica
Former smoker
Condition: Fair
Diet: As tolerated
Activity: As tolerated
Driving Restrictions: Not until seen by your Dr
Bathing Restrictions: None
Other Services: VN
Activity Restrictions/Additional Instructions:
To treat your pneumonia, you will finish your antibiotic course of the following:
Doxycycline 100mg every 12 hours. Finish 10/10/25.
Levofloxacin 500mg once daily. Finish 10/11/25.
Restart your prophylactic azithromycin on 10/12/2025 after finishing your levofloxacin.
Please follow the instructions for your prednisone taper which starts with 40 mg for 3 days, 30 mg for 3 days, 20 mg for 3 days and then continue your home dose of 10 mg daily.
Please follow-up with your staff developer to discuss starting Nucala injections once a month.
Please use the nystatin for oral thrush 4 times a day for 7 days. Follow-up with PCP to evaluate if thrush has been treated.
Referrals:
Niya Lafleur, DO [Active, Pulmonary Medicine] - in two to four weeks
UNKNOWN - PT DOES,NOT KNOW [Unknown Provider]
Prescriptions:
New
doxycycline hyclate 100 mg Capsule
100 mg PO Q12 Qty: 3 0RF
levofloxacin 500 mg Tablet
500 mg PO DAILY Qty: 2 0RF
prednisone 10 mg Tablet
See Rx Instructions .ROUTE .COMPLEX Qty: 30 0RF
Rx Instructions:
Take By Mouth:
40 mg daily x3 days, 30 mg daily x3 days,
20 mg daily x3 days, then your home dose
nystatin 100,000 unit/mL suspension
1 ml PO QID 7 Days Qty: 60 0RF
Continued
zolpidem 10 mg Tablet
10 mg PO HSPRN PRN (Reason: sleep)
Ohtuvayre 3 mg/2.5 mL Suspension For Nebulization
2.5 ml INHALATION BID
Patient Comments:
10 am 10 pm usually
Trelegy Ellipta 200-62.5-25 mcg blister with device
1 inh INHALATION DAILY
oxycodone-acetaminophen 5-325 mg tablet
1 tab PO PRN PRN (Reason: pain)
diltiazem HCl 120 mg Capsule,Extended Release 24 Hr
120 mg PO DAILY Qty: 0 0RF
guaifenesin [Mucinex] 600 mg Tablet Extended Release 12hr
1,200 mg PO BID Qty: 0 0RF
Held
azithromycin [Zithromax] 250 mg Tablet
250 mg PO DAILY Qty: 0 0RF
Hold Instructions: Restart on 10/12 after finishing your levofloxacin
prednisone 10 mg tablet
10 mg PO DAILY Qty: 30 0RF
Hold Instructions: Restart after you finish your prednisone taper
Discharge Orders:
Discharge Patient (As Directed); Ordered 10/09/25
Ordered By: Julissa Hager
Discharge Date and Time
Discharge Date/Time: 10/09/25 15:58
Print Language: INDIAN

Documented by User: Maribel Gerardo MD 10/10/25 11:55
Discharge Summary
Discharge Data
Date of Admission: 12/04/25
Date of Discharge: 10/09/25
Hospital Course
Primary diagnosis:
Acute hypoxemic respiratory failure secondary to COPD exacerbation triggered by influenza A
Secondary diagnosis:
Atrial tachycardia
Fibromyalgia
Polymyalgia rheumatica
History of breast cancer status postlumpectomy, chemotherapy, radiation
Insomnia
Osteoarthritis
Diverticulosis
Headaches
Sinkers diverticulum
Cervical stenosis
Migraines
Hyperlipidemia
Hospital course:
69-year-old with past medical history for COPD, fibromyalgia, chronic pain presented to the ED with increased coughing and shortness of breath for the past 5 days. She is at baseline on 1-2L O2 for episodes of exertion as needed, however IN HOME [place] for 5
days she had been on oxygen continuously. She was brought in by EMS requiring 4L O2 and received 10mg IV Decadron. She was found to be influenza positive. Chest x-ray revealed subtle bibasilar pneumonitis versus mild interstitial edema. She was
given IV Decadron, nebulizers and started on Tamiflu, and improve gradually.
However on 10/05/2025, her oxygen requirements increased from 4 to 6 L and a repeat chest x-ray revealed possible pneumonia. She was started with empiric Levaquin and doxycycline while holding her prior to admission azithromycin.
At the time of discharge, she was weaned down to 3 L nasal cannula and she can continue oral Levaquin and doxycycline to complete 5 days course. In addition, she was discharged on a prednisone taper to be weaned down back to her home dose of 10 mg
daily. She can follow-up with pulmonary outpatient.
Discharge Plan
-
Patient Disposition: Home with Home Care
Discharge Diagnosis/Procedures: Acute hypoxemic respiratory failure secondary to influenza A and COPD exacerbation
Pneumonia
Dyspepsia
Hypertension
Insomnia
History of migraines
History of breast cancer
Fibromyalgia
Polymyalgia rheumatica
Former smoker
Condition: Fair
Diet: As tolerated
Activity: As tolerated
Driving Restrictions: Not until seen by your Dr
Bathing Restrictions: None
Other Services: VN
Activity Restrictions/Additional Instructions:
To treat your pneumonia, you will finish your antibiotic course of the following:
Doxycycline 100mg every 12 hours. Finish 10/10/25.
Levofloxacin 500mg once daily. Finish 10/11/25.
Restart your prophylactic azithromycin on 10/12/2025 after finishing your levofloxacin.
Please follow the instructions for your prednisone taper which starts with 40 mg for 3 days, 30 mg for 3 days, 20 mg for 3 days and then continue your home dose of 10 mg daily.
Please follow-up with your staff developer to discuss starting Nucala injections once a month.
Please use the nystatin for oral thrush 4 times a day for 7 days. Follow-up with PCP to evaluate if thrush has been treated.
Referrals:
Niya Lafleur, DO [Active, Pulmonary Medicine] - in two to four weeks
UNKNOWN - PT DOES,NOT KNOW [Unknown Provider]
Prescriptions:
New
doxycycline hyclate 100 mg Capsule
100 mg PO Q12 Qty: 3 0RF
levofloxacin 500 mg Tablet
500 mg PO DAILY Qty: 2 0RF
prednisone 10 mg Tablet
See Rx Instructions .ROUTE .COMPLEX Qty: 30 0RF
Rx Instructions:
Take By Mouth:
40 mg daily x3 days, 30 mg daily x3 days,
20 mg daily x3 days, then your home dose
nystatin 100,000 unit/mL suspension
1 ml PO QID 7 Days Qty: 60 0RF
Continued
zolpidem 10 mg Tablet
10 mg PO HSPRN PRN (Reason: sleep)
Ohtuvayre 3 mg/2.5 mL Suspension For Nebulization
2.5 ml INHALATION BID
Patient Comments:
10 am 10 pm usually
Trelegy Ellipta 200-62.5-25 mcg blister with device
1 inh INHALATION DAILY
oxycodone-acetaminophen 5-325 mg tablet
1 tab PO PRN PRN (Reason: pain)
diltiazem HCl 120 mg Capsule,Extended Release 24 Hr
120 mg PO DAILY Qty: 0 0RF
guaifenesin [Mucinex] 600 mg Tablet Extended Release 12hr
1,200 mg PO BID Qty: 0 0RF
Held
azithromycin [Zithromax] 250 mg Tablet
250 mg PO DAILY Qty: 0 0RF
Hold Instructions: Restart on 10/12 after finishing your levofloxacin
prednisone 10 mg tablet
10 mg PO DAILY Qty: 30 0RF
Hold Instructions: Restart after you finish your prednisone taper
Discharge Orders:
Discharge Patient (As Directed); Ordered 10/09/25
Ordered By: Julissa Hager
Discharge Date and Time
Discharge Date/Time: 10/09/25 15:58
Print Language: INDIAN
== END 2025-10-09 15:58 | disposition home health service (06) | DRG 193 ==
LOC: 3 WEST ACU 19:04
PROVIDERS: Physician Assistant; Registered Nurse; ADMITTING PHYSICIAN Internal Medicine; ATTENDING PHYSICIAN Internal Medicine; EMERGENCY PHYSICIAN Emergency Medicine; FAMILY PHYSICIAN Student in an Organized Health Care Education/Training Program; OTHER PHYSICIAN Internal Medicine Critical Care Medicine
DX: J10.1 Influenza due to other identified influenza virus with other respiratory manifestations (principal); J96.21 Acute and chronic respiratory failure with hypoxia; J44.0 Chronic obstructive pulmonary disease with (acute) lower respiratory infection; J44.1 Chronic obstructive pulmonary disease with (acute) exacerbation; I47.19 Other supraventricular tachycardia; J96.12 Chronic respiratory failure with hypercapnia; G89.29 Other chronic pain; M35.3 Polymyalgia rheumatica; I10 Essential (primary) hypertension; G43.909 Migraine, unspecified, not intractable, without status migrainosus; M79.7 Fibromyalgia; E78.00 Pure hypercholesterolemia, unspecified; F17.200 Nicotine dependence, unspecified, uncomplicated; F32.A Depression, unspecified; F41.9 Anxiety disorder, unspecified; G47.00 Insomnia, unspecified; K57.30 Diverticulosis of large intestine without perforation or abscess without bleeding; M19.90 Unspecified osteoarthritis, unspecified site; M48.02 Spinal stenosis, cervical region; J10.00 Influenza due to other identified influenza virus with unspecified type of pneumonia; Z11.52 Encounter for screening for COVID-19; Z79.51 Long term (current) use of inhaled steroids; Z79.52 Long term (current) use of systemic steroids; Z79.899 Other long term (current) drug therapy; Z85.3 Personal history of malignant neoplasm of breast; Z92.21 Personal history of antineoplastic chemotherapy; Z92.3 Personal history of irradiation; Z99.81 Dependence on supplemental oxygen
CPT/HCPCS: 71046; 80048; 80053; 84484; 85025; 85027; 87070; 87502; 87811; 93005; 94640; 94644; 94669; 96374; 97116; 97162; 97530; 99285

== ENCOUNTER 2025-10-23 14:21 | Outpatient (RCR) | payer MEDICARE, SELFPAY ==
[2025-10-23 14:35] VITALS: BP 119/69
[2025-10-23] MEDS: NUCALA 1 MG SC (14:41)
== END 2025-10-28 23:59 | disposition home or self-care (01) ==
LOC: OID 14:21
PROVIDERS: ATTENDING PHYSICIAN Nurse Practitioner Family; FAMILY PHYSICIAN Student in an Organized Health Care Education/Training Program
DX: J44.9 Chronic obstructive pulmonary disease, unspecified (principal); J96.12 Chronic respiratory failure with hypercapnia; J96.11 Chronic respiratory failure with hypoxia; R94.2 Abnormal results of pulmonary function studies; Z87.891 Personal history of nicotine dependence
CPT/HCPCS: 96372; J2182